=== PATIENT | male | born 1970 | race Caucasian/White ===

== ENCOUNTER 2020-04-09 15:38 | Inpatient (IN) | payer BC, SELFPAY ==
[2020-04-09] VITALS (14 sets, daily range): BP systolic 87–170; BP diastolic 43–110; PULSE 118–133; RESP 14–25; TEMP 36.9–38.6; O2SAT 94–99; BMI 30.6; BMI 30.4; BMI 30.5
--- NOTE | 2020-04-09 16:22 | EKG12_ITS ---
Test Reason : Blood Pressure : / mmHG Vent. Rate : 135 BPM Atrial Rate : 270 BPM P-R Int : 000 ms QRS Dur : 090 ms QT Int : 370 ms P-R-T Axes : 000 049 022 degrees QTc Int : 555 ms Atrial flutter with 2:1 A-V conduction Nonspecific T wave abnormality Abnormal ECG Confirmed by NIMA EUGENE, FRIDA ([id number]), legal editor SHILA EDWARD ([id number]) on 04/12/2020 10:43:42 AM Referred By: TISH Confirmed By:FRIDA HERRING MD
--- NOTE | 2020-04-09 16:22 | RAD_ITS ---
STUDY: X-RAY CHEST REASON FOR EXAM: Male, 49 years old. Fever, nausea. TECHNIQUE: Single AP portable view of the chest. COMPARISON: None. FINDINGS: The lungs are clear and expanded. There is no demonstrated pleural abnormality. Normal size heart. Normal mediastinum and frances. Normal visualized pulmonary arteries. Normal visualized aortic arch and descending thoracic aorta. Normal visualized thoracic spine. Normal visualized ribs, clavicles, and shoulders. There is no demonstrated abnormality of the visualized soft tissue structures of the upper abdomen. RAD/Chest 1 View (Portable) IMPRESSION: Normal x-ray examination of the chest. Electronically Signed: Carroll Echeverria MD at 17:34 EDT Tel , Service support ,
--- NOTE | 2020-04-09 16:23 | RAD_ITS ---
STUDY: X-RAY - RIGHT TIBIA AND FIBULA REASON FOR EXAM: Male, 49 years old. Infection. TECHNIQUE: 2 view(s) of the tibia and fibula were obtained. COMPARISON: None. FINDINGS: Normal visualized tibia. Normal visualized fibula. The soft tissue structures are unremarkable. RAD/Tibia & Fibula 2 Views IMPRESSION: Normal x-ray examination of the tibia and fibula. Electronically Signed: Carroll Echeverria MD at 17:34 EDT Tel , Service support ,
[2020-04-09] MEDS: Morphine 4 MG/ML Syringe IV (16:54)
[2020-04-09] MEDS: Acetaminophen 500 MG Tablet 1000 MG PO (16:54)
[2020-04-09] MEDS: 0.9% Normal Saline 1,000 ML 999 ML IV ×3 (16:54→21:30)
[2020-04-09] MEDS: Ondansetron 4 MG/2 ML Vial IV (16:55)
--- NOTE | 2020-04-09 17:12 | ED.VIS.GEN ---
History of Present Illness Chief Complaint: Fever Informant: Patient Onset: Today Context: Sudden Onset Timing: Continuous Narrative: Patient is a 49-year-old male with history of insulin-dependent diabetes mellitus as well as history of streptococcal left hip infection requiring 2 surgeries for cleanout presenting with sudden onset of pain in his right leg. Patient states this afternoon he suddenly developed a fever of up to 102 and severe pain in his right leg. He notes he had redness and warmth of his right leg. He has associated nausea. But no vomiting and has had normal bowel movements. Patient states that he is not been very compliant with his insulin or checking his blood sugar recently. He denies any upper respiratory symptoms or cough. He denies any sick contacts. Denies any other complaints at this time. Did not take any medications prior to arrival. Past Medical History - Allergies and Home Meds Allergies/Adverse Reactions: Allergies metformin Allergy (Verified 04/09/20 15:40) PT UNSURE OF REACTION Past Medical History: - - Hypertension, diabetes mellitus Surgical History: - - left hip sx x 2- wash out Lives: With Family - Family History Maternal Family History: Reports: Diabetes, Hypertension, - - His mother had Parkinson's disease and hemophilia. Paternal Family History: Reports: Cancer - Skein, Hypertension, Pulmonary Disease, - - His father from myasthenia gravis. Review of Systems General: Reports: Chills, Fever, Malaise. Denies: Sweats Eyes: Denies: Visual changes - bilaterally, Diplopia ENT: Denies: Rhinorrhea, Sore throat Cardiovascular: Denies: Chest pain, Palpitations Respiratory: Denies: Dyspnea, Cough, Dyspnea on exertion Gastrointestinal: Reports: Nausea. Denies: Abdominal pain, Vomiting, Diarrhea, Melena, Hematochezia Genitourinary: Denies: Dysuria, Hematuria, Frequency Musculoskeletal: Reports: Extremity Pain - right. Denies: Back pain Skin: Denies: Rash, Wounds Neurological: Denies: Headache, Weakness, Numbness Physical Exam Vital Signs/Narrative: Vital Signs Temp Pulse Resp BP Pulse Ox 04/09/20 17:05 97 04/09/20 15:41 101.5 F H 132 H 19 H 170/101 H 97 Inital Vital Signs reviewed: Yes General: Well nourished, Well developed, No Acute Distress Head: Normocephalic, Atraumatic Eyes: Perrl, EOMI ENT: Moist mucous membranes, No rhinorrhea Neck: Supple, Nontender Cardiovascular: Regular rhythm, No murmurs, Tachycardia Respiratory: No distress, CTA bilaterally, Chest nontender. Negative for: Wheezing, Diminished Abdomen: Soft, Nontender, Nondistended, Normal bowel sounds. Negative for: Guarding, Rebound tenderness Back: Nontender, Normal Inspection Extremities: Edema - Nonpitting edema of the right lower leg. Negative for: Calf Tenderness Skin: - - Erythema and warmth of the right lower leg. The area of erythema is approximately 6 cm in diameter on the distal lateral aspect of the lower leg. No associated abscess or drainage. No crepitus appreciated. No Lymphangitic streaking noted. Neurological: Alert, Oriented x3, Cranial nerves II-XII grossly intact, Normal Strength, Normal Sensation Psychological: Normal affect, Normal Mood Diagnostic/Tx/Re-eval Chest X-Ray - ED: 1 View, Read by ED Physician, Read by Radiologist, No Acute Disease Clinical Impression(s) from Imaging Studies Chest X-Ray 04/09/20 16:22 IMPRESSION: Normal x-ray examination of the chest. Electronically Signed: Carroll Echeverria MD at 17:34 EDT Tel , Service support , Tibia/Fibula X-Ray 04/09/20 16:23 IMPRESSION: Normal x-ray examination of the tibia and fibula. Electronically Signed: Carroll Echeverria MD at 17:34 EDT Tel , Service support , Laboratory Data 04/09/20 04/09/20 04/09/20 16:40 16:40 16:40 WBC 15.1 H RBC 5.61 Hgb 16.4 Hct 47.2 MCV 84.1 MCH 29.2 MCHC 34.7 RDW Std Deviation 36.8 RDW Coeff of Paul 12.4 Plt Count 214 MPV 11.8 Immature Gran % (Auto) 0.500 Neut % (Auto) 91.3 H Lymph % (Auto) 3.7 L [place] % (Auto) 3.8 Eos % (Auto) 0.5 Baso % (Auto) 0.2 Absolute Neuts (auto) 13.8 H Absolute Lymphs (auto) 0.56 L Nucleated RBC % 0 Differential Comment Platelet Estimate ADEQUATE RBC Morphology NORM C+C PT 12.2 INR 1.0 APTT 21.7 L Sodium 133 L Potassium 4.0 Chloride 97 L Carbon Dioxide 30.0 Anion Gap 6 BUN 8 Creatinine 1.15 Estim Creat Clear Calc 78.47 Est GFR (MDRD) Af Amer 86 Est GFR (MDRD) Non-Af 71 BUN/Creatinine Ratio 7.0 L Glucose 580 H* Lactic Acid Calcium 9.3 Total Bilirubin 2.00 H AST 17 ALT 25 Alkaline Phosphatase 135 H Total Creatine Kinase 83 Total Protein 7.4 Albumin 3.9 Globulin 3.5 Albumin/Globulin Ratio 1.1 Urine Color Urine Clarity Urine pH Ur Specific [place] Urine Protein Urine Glucose (UA) Urine Ketones Urine Occult Blood Urine Nitrite Urine Bilirubin Urine Urobilinogen Ur Leukocyte Esterase Urine RBC Urine WBC Ur Squamous Epith Cells Urine Bacteria Urine Mucus Acetone Level 04/09/20 04/09/20 04/09/20 16:40 16:40 17:25 WBC RBC Hgb Hct MCV MCH MCHC RDW Std Deviation RDW Coeff of Paul Plt Count MPV Immature Gran % (Auto) Neut % (Auto) Lymph % (Auto) [place] % (Auto) Eos % (Auto) Baso % (Auto) Absolute Neuts (auto) Absolute Lymphs (auto) Nucleated RBC % Differential Comment Platelet Estimate RBC Morphology PT INR APTT Sodium Potassium Chloride Carbon Dioxide Anion Gap BUN Creatinine Estim Creat Clear Calc Est GFR (MDRD) Af Amer Est GFR (MDRD) Non-Af BUN/Creatinine Ratio Glucose Lactic Acid 2.2 H* Calcium Total Bilirubin AST ALT Alkaline Phosphatase Total Creatine Kinase Total Protein Albumin Globulin Albumin/Globulin Ratio Urine Color Yellow Urine Clarity Clear Urine pH 6.5 Ur Specific [place] 1.010 Urine Protein Negative Urine Glucose (UA) 1000 H Urine Ketones 15 H Urine Occult Blood Negative Urine Nitrite Negative Urine Bilirubin Negative Urine Urobilinogen Normal Ur Leukocyte Esterase Negative Urine RBC 0 SEEN Urine WBC 0 SEEN Ur Squamous Epith Cells 0 SEEN Urine Bacteria 0 SEEN Urine Mucus 0 SEEN Acetone Level NEGATIVE - Rhythm Strip Rhythm Strip: Sinus Tach Rate: 135 Ectopy: None - EKG Initial EKG Interpretation: Sinus Tachycardia, - - Sinus tachycardia at a rate of 135 Normal axis Normal intervals Nonspecific T wave inversions in the inferior leads with no reciprocal changes - Medical Decision Making Patient is evaluated for sudden onset of fever and pain of his lower right leg. Patient is febrile tachycardic and appears significantly uncomfortable secondary to his symptoms. Septic work-up is initiated I did obtain x-rays for concern of free air. No free air was seen. On repeat evaluation patient does not have any significant progression of the cellulitic changes. Patient is given Zosyn for antibiotic coverage. He does meet criteria for severe sepsis with the source of infection, tachycardia, leukopenia and a lactate of greater than 2. Patient is also found to be significantly hyperglycemic. I did add on an acetone however he has a normal anion gap. Acetone is negative. I do not think patient has DKA or HH NK. Patient is given a total of 3 L of fluid and then sliding-scale insulin which is ordered by the hospitalist. Given that patient be treated for severe sepsis he will be admitted to the ICU. Patient is hemodynamically stable in the emergency room. He is agreeable with this plan of care. He does have improvement of his symptoms with Tylenol and morphine in the ER. - Critical Care Time Critical care time (excluding procedures): 30-74 minutes - 35, Discussing w/Patient &/or Family/Manager Multimedia, Arranging Admission or Transfer, Performing Direct Patient Care at Bedside ED Disposition - Plan for ED Patient: Disposition: Acute Care Hospital [facility] Diagnosis: Cellulitis, Hyperglycemia, Severe sepsis, Diabetes
[2020-04-09 17:25] LABS: Partial Thromboplast Time 21.7 Seconds (24.1-36.2); Prothrombin Time (Protime)PT. 12.2 SECONDS (11.7-14.9)
[2020-04-09 17:26] LABS: Absolute Lymphocyte Count 0.56 X10^3/uL (0.83-4.51); Absolute Neutrophil Count 13.8 X10^3/uL (2.0-7.7); Basophil# 0.03 X10^3/uL; Basophil% 0.2 % (0-1); Eosinophil# 0.08 X10^3/uL; Eosinophils% 0.5 % (0-5); Hematocrit 47.2 % (40-54); Hemoglobin 16.4 g/dL (13.0-16.5); Lymphocyte # 0.56 X10^3/ul (4.0); Lymphocyte % 3.7 % (19-41); Mean Corp Hgb Conc 34.7 g/dL (32-36); Mean Corpuscular Hgb 29.2 pg (27.0-32.0); Mean Corpuscular Volume 84.1 fL (80-94); Mean Platelet Vol. 11.8 fl (6.2-12.0); Monocyte# 0.57 X10^3/uL; Monocyte% 3.8 % (0-10); NRBC Flagged by Analyzer 0 % (0-5); Neutrophil # 13.79 X10^3/uL (2.7-7.7); Neutrophil % 91.3 % (47-70); POSITIVE DIFFERENTIAL YES; Platelet Count 214 K/mm3 (150-450); RBC Distribution Width CV 12.4 % (11.6-14.6); RBC Distribution Width SD 36.8 fl (35.1-43.9); Red Blood Count 5.61 M/mm3 (4.6-6.2); White Blood Count 15.1 K/mm3 (4.4-11.0)
[2020-04-09 17:39] LABS: Bacteria 0 SEEN /hpf (None Seen); Mucous, Urine 0 SEEN /hpf (<or=2+); Red Blood Cells-Urine 0 SEEN /hpf (0-5); Squamous Epithelial Cells - UA 0 SEEN /hpf (0-5); White Blood Cells 0 SEEN /hpf (0-5)
[2020-04-09 18:36] LABS: Lactic Acid 2.2 mmol/L (0.4-1.9)
[2020-04-09 18:40] LABS: Color, Urine Yellow (Yellow); Glucose, Dipstick 1000 mg/dl (Normal); Ketone-Dipstick 15 mg/dl (Negative); Leukocyte Esterase-Dipstick Negative /ul (Negative); Nitrite-Dipstick Negative (Negative); Occult Blood-Urine Negative /ul (Negative); Protein-Dipstick Negative (Negative); Urine Bilirubin Dipstick Negative (Negative); Urine Clarity Clear (Clear); Urine Urobilinogen Normal (Normal); Urine pH 6.5 (5.0 - 8.0)
[2020-04-09 18:44] LABS: Differential Indicated SCAN CRITERIA MET
--- NOTE | 2020-04-09 18:48 | ED.RN ---
LAB WITH CRITICAL OF LACTIC 2.2. DR WINSTON NOTIFIED AT THIS TIME.
[2020-04-09 18:55] LABS: Platelet Estimate ADEQUATE (ADEQ)
[2020-04-09 18:56] LABS: Red Cell Morphology NORM C+C NORMAL (NORM C&C)
[2020-04-09 19:09] LABS: ALB/GLOB Ratio 1.1 RATIO (0.9-2.4); AST(SGOT) 17 U/L (15-37); Alanine Aminotransfer ALT/SGPT 25 U/L (16-61); Albumin, Serum 3.9 g/dL (3.2-5.0); Alkaline Phosphatase 135 U/L (45-117); Anion Gap 6 (5-15); BUN 8 mg/dL (7-18); CPK Total, Creatine Kinase 83 U/L (39-308); Calcium,Total 9.3 mg/dL (8.5-10.1); Chloride 97 mmol/L (98-107); Creatinine, Serum 1.15 mg/dL (0.70-1.30); EST Glomerular Filtration Rate 71 mL/min (>60); Est Glom Filt Rate - Afr Amer 86 mL/min (>60); Estimated Creatinine Clearance 78.47 ml/min; Globulin 3.5 g/dL (2.2-4.2); Glucose 580 mg/dL (74-106); Protein, Total 7.4 g/dL (6.4-8.2); Sodium Level 133 mmol/L (136-145)
--- NOTE | 2020-04-09 19:28 | ED.RN ---
Called lab for urine results. Tech said they were really behind but she will check on the results.
--- NOTE | 2020-04-09 19:37 | HP.PCM_ITS ---
Problem List (1) Severe sepsis Status: Acute (2) Cellulitis Status: Acute (3) Diabetes Status: Chronic (4) Hyperglycemia Status: Acute (5) HTN (hypertension) Status: Chronic History of Present Illness Date of Admission: 04/09/20 Chief Complaint: Right leg pain The patient is a 49 year old M with a significant history of hypertension; diabetes mellitus; and retinopathy who presents to the emergency department with sudden onset excruciating sharp right leg pain that started on the same day of presentation. Also, he noticed redness, swelling and increased warmth on his right leg. The pain radiated to his right inner thigh. Associated with his symptoms is a fever. Reportedly his temperature was at least 101.4 Fahrenheit. With his temperature still rising on the thermometer his stopped the temperature check and brought patient to the hospital. Further, he reports chills; nausea and anorexia. Patient also reports pain in his left inner thigh. Importantly in 2017 he had strep throat infection that caused left leg infection requiring 21 days admission at the hospital and 2 surgeries on his left hip. He called these surgeries on his left hip cleanup surgeries At emergency department his T-max was 100.3 Fahrenheit. His heart rate was in the 130s. His respiratory rate was in the 20s. His white count was 15.1. His sodium was 133. His glucose on BMP was 580. Lactic acid was 2.2. His Accu- Chek after fluid bolus was 483. Tibia/fibula x-ray was unrevealing. Past Medical History Past Medical History (Chronic Problems): Chronic Problems Diabetes (Chronic) HTN (hypertension) (Chronic) Allergies metformin Allergy (Verified 04/09/20 15:40) PT UNSURE OF REACTION Home Medications: Ambulatory Orders Medication Instructions Recorded NK 04/09/20 Surgical History: - - left hip sx x 2- wash out Smoking Status: Never smoker Alcohol: Rare - *Family History Maternal History Items: Diabetes, Hypertension, - - His mother had Parkinson's disease and hemophilia. Paternal History Items: Cancer - Skein, Hypertension, Pulmonary Disease, - - His father from myasthenia gravis. Review of Systems Constitutional: Reports: Anorexia, Chills, Fever. Denies: Weight Change HEENT: Denies: Head Aches, Sinus Congestion, Sinus Drainage Cardiovascular: Denies: Chest Pain, Palpitations Respiratory: Denies: Cough, Shortness of breath at rest, Sputum production Gastrointestinal: Reports: Nausea. Denies: Abdominal Pain, Vomiting Genitourinary: Denies: Dysuria Musculoskeletal: Reports: Leg Pain - Right leg. Denies: Arm Pain, Back Pain Skin: Reports: Skin Changes - Erythema of right leg. Denies: Rash, Wounds Neurological: Denies: Numbness, Tingling, Focal weakness Psychiatric: Denies: Anxiety, Depression, Homicidal Ideations, Suicidal Ideations Hematologic/ Lymphatic: Denies: Easy Bruising, Easy Bleeding VTE Information - Inpt Only VTE Present on Admission: No VTE Mechan Device Prophylaxis: None VTE Pharm Prophylaxis ordered?: Yes Patient Problems: Active and Suspected Problems Severe sepsis (Acute) Cellulitis (Acute) Hyperglycemia (Acute) - Physical Exam Vitals/I&O's: Vital Signs Temp Pulse Resp BP Pulse Ox 98.6 F 132 H 17 123/67 H 94 04/09/20 19:13 04/09/20 19:13 04/09/20 19:13 04/09/20 19:13 04/09/20 19:13 Oxygen Flow Rate (L/min) 2 Oxygen Delivery Method Room Air Weight: 96.7 kg Body Mass Index (BMI) 30.6 Intake and Output for Last 24 Hours 04/07/20 04/08/20 04/09/20 23:59 23:59 23:59 Intake Total 1000 / 1000 Balance 1000 / 1000 General: Alert, Oriented x3, Cooperative HEENT: Atraumatic, PERRLA, EOMI, Normocephalic Neck: Supple, No JVD, Negative Carotid Bruits Lungs: Clear to auscultation, Normal air movement Cardiovascular: Normal S1, Normal S2, No murmurs, Tachycardic Abdomen: Bowel Sounds Present, Soft, Non Tender Extremities: No edema, Capillary Refill Less than 3 Seconds, Tenderness - Right leg Skin: - - Erythema of right leg; mildly increased warmth of right leg. Brownish pigmentation of left leg Musculoskeletal: No Muscle Wasting, Tenderness - Right leg Neurological: Cranial nerves II-XII grossly intact Psych/Mental Status: Normal Affect, Appropriate Laboratory Results 04/09/20 16:40: WBC 15.1 H, RBC 5.61, Hgb 16.4, Hct 47.2, MCV 84.1, MCH 29.2, MCHC 34.7, RDW Std Deviation 36.8, RDW Coeff of Paul 12.4, Plt Count 214, MPV 11.8, Immature Gran % (Auto) 0.500, Neut % (Auto) 91.3 H, Lymph % (Auto) 3.7 L, [place] % (Auto) 3.8, Eos % (Auto) 0.5, Baso % (Auto) 0.2, Absolute Neuts (auto) 13.8 H, Absolute Lymphs (auto) 0.56 L, Nucleated RBC % 0, Differential Comment , Platelet Estimate ADEQUATE, RBC Morphology NORM C+C 04/09/20 16:40: PT 12.2, INR 1.0, APTT 21.7 L 04/09/20 16:40: Sodium 133 L, Potassium 4.0, Chloride 97 L, Carbon Dioxide 30.0, Anion Gap 6, BUN 8, Creatinine 1.15, Estim Creat Clear Calc 78.47, Est GFR (MDRD) Af Amer 86, Est GFR (MDRD) Non-Af 71, BUN/Creatinine Ratio 7.0 L, Glucose 580 H*, Calcium 9.3, Total Bilirubin 2.00 H, AST 17, ALT 25, Alkaline Phosphatase 135 H, Total Creatine Kinase 83, Total Protein 7.4, Albumin 3.9, Globulin 3.5, Albumin/Globulin Ratio 1.1 04/09/20 16:40: Lactic Acid 2.2 H* 04/09/20 17:25: Urine Color Yellow, Urine Clarity Clear, Urine pH 6.5, Ur Specific [place] 1.010, Urine Protein Negative, Urine Glucose (UA) 1000 H, Urine Ketones 15 H, Urine Occult Blood Negative, Urine Nitrite Negative, Urine Bilirubin Negative, Urine Urobilinogen Normal, Ur Leukocyte Esterase Negative, Urine RBC Pending, Urine WBC Pending, Ur Squamous Epith Cells Pending, Urine Bacteria Pending, Urine Mucus Pending Current Medications Sodium Chloride () 1,000 mls @ 999 mls/hr IV .Q1H1M ONE Stop: 04/09/20 20:24 Piperacillin Sod/Tazobactam (Sod 3.375 gm/ Sodium Chloride) 50 mls @ 100 mls/hr IV X1 ONE Stop: 04/09/20 19:53 Sodium Chloride () 1,000 mls @ 999 mls/hr IV .Q1H1M ONE Stop: 04/09/20 20:30 Assessment/Plan All Active Problems Severe sepsis (Acute) Cellulitis (Acute) Hyperglycemia (Acute) The patient is a 49 year old M with a significant history of hypertension; diabetes mellitus; and retinopathy who presents emergency department with excruciating sharp right leg pain; erythema, swelling, and increased warmth of right leg; as well as a fever; chills; tachycardia; tachypnea; leukocytosis; hyperglycemia and lactic acidosis that started on the same day of presentation. Severe sepsis secondary to right leg cellulitis Sirs criteria: Heart rate of more than 97 respiratory rate of more than 20; white count of more than 12,000 Likely source of infection: Right leg cellulitis Lactic acid of 2.2 Trend lactic acid Blood culture x2 was obtained emergency department; follow Urine culture obtained in the emergency department: Follow Because of the sudden onset of symptoms this is likely Streptococcus infection especially as patient has a history of strep throat with hematogenous spread to left leg. Received Zosyn at emergency department We will start patient on vancomycin and cefazolin. Consider de-escalating to only cefazolin as patient improves Patient with tachycardia with rate in the 130s. EKG machine interpreted as atrial flat. Independent interpretation shows sinus tachycardia. Admitted to intensive care unit on telemetry. Received IV fluid bolus at emergency department. Continue maintenance IV hydration. Tylenol for fever. Oxycodone 5 mg for moderate pain; oxycodone 10 mg for severe pain. Bowel protocol in place. Antiemetics PRN. 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 Diabetes mellitus with hyperglycemia Initial glucose on BMP was 580. After IV bolus Accu-Chek showed reading of 483. Patient reports noncompliance with home insulin regimen. He reports a prescription of basal insulin 25 units twice daily. He takes short acting insulin beginning from 12 units with meals and with additional correction scale. Insulin lispro 14 units x 1 ordered. We will put patient on Accu-Chek QA CHS and 2 AM with correction scale insulin. Continue basal insulin 25 units twice daily. Prandial insulin 5 units 3 times daily ordered. Maintenance IV infusion. Diabetic diet ordered. History of hypertension Patient reports that he was on some blood pressure medication. However he reports noncompliance. He thinks he was on amlodipine in the past. His initial blood pressure at emergency department was severely elevated. Follow-up blood pressure is stable. Trend blood pressures. Pseudohyponatremia Sodium of 133 Glucose of 580 Corrected sodium is 141. Treatment of hyperglycemia as above. DVT prophylaxis Subcutaneous Lovenox ordered. Inpatient E&M: 24075 Init Hosp L3
[2020-04-09 20:01] LABS: Bedside Glucose 483 mg/dL (70-110)
[2020-04-09] MEDS: Insulin Lispro 100 UNIT/ML INSULN.PEN 14 UNIT SC (20:03)
[2020-04-09 20:49] LABS: Reflex Lactate? Y
[2020-04-09] MEDS: 0.9% Normal Saline 1,000 ML 100 ML IV (21:05)
[2020-04-09] MEDS: oxyCODONE 5 MG Tablet 10 MG PO (21:38)
[2020-04-09 21:39] LABS: Lactic Acid 1.2 mmol/L (0.4-1.9)
[2020-04-09] MEDS: Insulin Lispro 100 UNIT/ML INSULN.PEN SC (21:42)
[2020-04-09 21:45] LABS: Bedside Glucose 383 mg/dL (70-110)
[2020-04-09] MEDS: 0.9% Saline Lock 10 ML Syringe IV (21:46)
[2020-04-09] MEDS: Cefazolin 2 GM in 0.9% Normal Saline 100 ML IV (22:25)
[2020-04-10] VITALS (23 sets, daily range): BP systolic 104–157; BP diastolic 65–95; PULSE 95–117; RESP 13–25; TEMP 36.7–39; O2SAT 94–98
--- NOTE | 2020-04-10 00:39 | PCM.RX.CS ---
Consult Pharmacy has been consulted to manage selected antiobiotic: Vancomycin Type of Consult: New start Suspected Infection: Sepsis Labs: Sodium 133 mmol/L (136-145) L 04/09/20 16:40 Potassium 4.0 mmol/L (3.5-5.1) 04/09/20 16:40 Chloride 97 mmol/L (98-107) L 04/09/20 16:40 Carbon Dioxide 30.0 mmol/L (21.0-32.0) 04/09/20 16:40 Anion Gap 6 (5-15) 04/09/20 16:40 BUN 8 mg/dL (7-18) 04/09/20 16:40 Creatinine 1.15 mg/dL (0.70-1.30) 04/09/20 16:40 Est GFR (MDRD) Af Amer 86 mL/min (>60) 04/09/20 16:40 Est GFR (MDRD) Non-Af 71 mL/min (>60) 04/09/20 16:40 BUN/Creatinine Ratio 7.0 RATIO (10-20) L 04/09/20 16:40 Glucose 580 mg/dL (74-106) H* 04/09/20 16:40 Weight used for dosin.4 kg Estimated Creatinine Clearance: 88.5 Goal Trough: 15-20 mcg/mL Pharmacy Plan for Drug Dosing: Pharmacy Service will continue to monitor and adjust dosing as required. Medications Vancomycin HCl 1,750 mg/ (Sodium Chloride) 535 mls @ 250 mls/hr IV Q12H DELMA Discontinued Medications Vancomycin HCl 2,000 mg/ (Sodium Chloride) 540 mls @ 250 mls/hr IV X1 ONE Stop: 04/09/20 23:09 Last Admin: 04/09/20 23:40 Dose: Infused Documented by: Follow-Up Labs: Trough Vancomycin Labs to be done on [date and time ordered]: 04/10 @ 2100
[2020-04-10] MEDS: Insulin Lispro 100 UNIT/ML INSULN.PEN SC ×8 (02:21→21:30)
[2020-04-10 02:25] LABS: Bedside Glucose 273 mg/dL (70-110)
[2020-04-10] MEDS: 0.9% Normal Saline 1,000 ML 100 ML IV (04:22)
[2020-04-10] MEDS: 0.9% Saline Lock 10 ML Syringe IV ×2 (04:59→21:27)
[2020-04-10] MEDS: Cefazolin 2 GM in 0.9% Normal Saline 100 ML IV ×3 (05:00→21:24)
[2020-04-10 05:12] LABS: Absolute Lymphocyte Count 0.81 X10^3/uL (0.83-4.51); Basophil# 0.04 X10^3/uL; Basophil% 0.3 % (0-1); Eosinophil# 0.01 X10^3/uL; Eosinophils% 0.1 % (0-5); Hematocrit 38.3 % (40-54); Hemoglobin 13.6 g/dL (13.0-16.5); Lymphocyte # 0.81 X10^3/ul (4.0); Lymphocyte % 5.2 % (19-41); Mean Corp Hgb Conc 35.5 g/dL (32-36); Mean Corpuscular Hgb 30.2 pg (27.0-32.0); Mean Corpuscular Volume 84.9 fL (80-94); Mean Platelet Vol. 11.4 fl (6.2-12.0); Monocyte% 3.9 % (0-10); NRBC Flagged by Analyzer 0 % (0-5); Neutrophil # 13.95 X10^3/uL (2.7-7.7); Neutrophil % 89.9 % (47-70); Platelet Count 165 K/mm3 (150-450); RBC Distribution Width CV 12.4 % (11.6-14.6); RBC Distribution Width SD 37.2 fl (35.1-43.9); Red Blood Count 4.51 M/mm3 (4.6-6.2); White Blood Count 15.5 K/mm3 (4.4-11.0)
[2020-04-10 05:23] LABS: Anion Gap 5 (5-15); BUN 10 mg/dL (7-18); BUN/Creat Ratio 13.4 RATIO (10-20); Chloride 108 mmol/L (98-107); Creatinine, Serum 0.75 mg/dL (0.70-1.30); EST Glomerular Filtration Rate 117 mL/min (>60); Est Glom Filt Rate - Afr Amer 141 mL/min (>60); Estimated Creatinine Clearance 120.31 ml/min; Glucose 202 mg/dL (74-106); Potassium 3.2 mmol/L (3.5-5.1); Sodium Level 141 mmol/L (136-145)
[2020-04-10] MEDS: oxyCODONE 5 MG Tablet PO (06:27)
--- NOTE | 2020-04-10 07:30 | PN_ITS ---
Patient Problems: Active and Suspected Problems Severe sepsis (Acute) Cellulitis (Acute) Hyperglycemia (Acute) Reason for Visit: Follow-up on severe sepsis secondary to right lower extremity cellulitis/uncontrolled type II DM Subjective: Patient was seen and examined. He feels much improved. He denied any fever or chills. He complains of pain in the distal right thigh. There is some faint red streaking in the medial aspect of the thigh. He denied any diarrhea or nausea or vomiting. Objective: Physical exam: General: Alert, Oriented x3, Cooperative HEENT: Atraumatic, PERRLA, EOMI, Normocephalic Neck: Supple, No JVD, Negative Carotid Bruits Lungs: Clear to auscultation, Normal air movement Cardiovascular: Normal S1, Normal S2, No murmurs, Tachycardic Abdomen: Bowel Sounds Present, Soft, Non Tender Extremities: No edema, Capillary Refill Less than 3 Seconds, Tenderness - Right leg Skin: - - Improved erythema of right leg; mildly increased warmth of right leg. Brownish pigmentation of both lower legs. Musculoskeletal: No Muscle Wasting, Tenderness - Right leg Neurological: Cranial nerves II-XII grossly intact Psych/Mental Status: Normal Affect, Appropriate Vitals/I&O's: Vital Signs Temp Pulse Resp BP Pulse Ox 98.3 F 115 H 25 H 148/95 H 96 04/10/20 04:00 04/10/20 06:00 04/10/20 06:00 04/10/20 06:00 04/10/20 06:40 Oxygen Flow Rate (L/min) 2 Oxygen Delivery Method Nasal Cannula Weight: 96.4 kg Body Mass Index (BMI) 30.4 Finger Stick Blood Glucose 483 Intake and Output for Last 24 Hours 04/08/20 04/09/20 04/10/20 23:59 23:59 23:59 Intake Total 4163.58 / 4363.58 867.5 / 867.5 Output Total 550 / 1000 1050 / 1050 Balance 3613.58 / 3363.58 -182.5 / -182.5 Laboratory Results 04/09/20 16:40: WBC 15.1 H, RBC 5.61, Hgb 16.4, Hct 47.2, MCV 84.1, MCH 29.2, MCHC 34.7, RDW Std Deviation 36.8, RDW Coeff of Paul 12.4, Plt Count 214, MPV 11.8, Immature Gran % (Auto) 0.500, Neut % (Auto) 91.3 H, Lymph % (Auto) 3.7 L, [place] % (Auto) 3.8, Eos % (Auto) 0.5, Baso % (Auto) 0.2, Absolute Neuts (auto) 13.8 H, Absolute Lymphs (auto) 0.56 L, Nucleated RBC % 0, Differential Comment , Platelet Estimate ADEQUATE, RBC Morphology NORM C+C 04/09/20 16:40: PT 12.2, INR 1.0, APTT 21.7 L 04/09/20 16:40: Sodium 133 L, Potassium 4.0, Chloride 97 L, Carbon Dioxide 30.0, Anion Gap 6, BUN 8, Creatinine 1.15, Estim Creat Clear Calc 78.47, Est GFR (MDRD) Af Amer 86, Est GFR (MDRD) Non-Af 71, BUN/Creatinine Ratio 7.0 L, Glucose 580 H*, Calcium 9.3, Total Bilirubin 2.00 H, AST 17, ALT 25, Alkaline Phosphatase 135 H, Total Creatine Kinase 83, Total Protein 7.4, Albumin 3.9, Globulin 3.5, Albumin/Globulin Ratio 1.1 04/09/20 16:40: Lactic Acid 2.2 H* 04/09/20 16:40: Acetone Level NEGATIVE 04/09/20 17:25: Urine Color Yellow, Urine Clarity Clear, Urine pH 6.5, Ur Specific [place] 1.010, Urine Protein Negative, Urine Glucose (UA) 1000 H, Urine Ketones 15 H, Urine Occult Blood Negative, Urine Nitrite Negative, Urine Bilirubin Negative, Urine Urobilinogen Normal, Ur Leukocyte Esterase Negative, Urine RBC 0 SEEN, Urine WBC 0 SEEN, Ur Squamous Epith Cells 0 SEEN, Urine Bacteria 0 SEEN, Urine Mucus 0 SEEN 04/09/20 19:55: POC Glucose 483 H* 04/09/20 21:00: Lactic Acid 1.2 04/09/20 21:41: POC Glucose 383 H 04/10/20 02:20: POC Glucose 273 H 04/10/20 04:55: WBC 15.5 H, RBC 4.51 L, Hgb 13.6, Hct 38.3 L, MCV 84.9, MCH 30.2, MCHC 35.5, RDW Std Deviation 37.2, RDW Coeff of Paul 12.4, Plt Count 165, MPV 11.4, Immature Gran % (Auto) 0.600, Neut % (Auto) 89.9 H, Lymph % (Auto) 5.2 L, [place] % (Auto) 3.9, Eos % (Auto) 0.1, Baso % (Auto) 0.3, Absolute Neuts (auto) 14.0 H, Absolute Lymphs (auto) 0.81 L, Nucleated RBC % 0 04/10/20 04:55: Sodium 141, Potassium 3.2 L, Chloride 108 H, Carbon Dioxide 28.0, Anion Gap 5, BUN 10, Creatinine 0.75, Estim Creat Clear Calc 120.31, Est GFR (MDRD) Af Amer 141, Est GFR (MDRD) Non-Af 117, BUN/Creatinine Ratio 13.4, Glucose 202 H, Calcium 8.0 L Current Medications Acetaminophen (Tylenol) 650 mg PO Q6H PRN PRN PRN Reason: Pain Score 1-10/Temp > 100.7 F Dextrose (D50w Syringe) 0 gm IV X1 PRN; Protocol PRN Reason: Hypoglycemia Enoxaparin Sodium (Lovenox) 40 mg SC DAILY [facility] Glucagon () 1 mg IM .X1 PRN PRN Reason: Hypoglycemia Sodium Chloride () 1,000 mls @ 100 mls/hr IV .Q10H [facility] Stop: 04/10/20 16:40 Last Admin: 04/10/20 04:22 Dose: 100 mls/hr Documented by: Vancomycin IV Pharmacy to Dose (1 ea/ Sodium Chloride) 500 mls @ 250 mls/hr IV X1 PRN; Protocol PRN Reason: Rx to Dose Cefazolin Sodium 2 gm/ Sodium (Chloride) 110 mls @ 150 mls/hr IV Q8 DELMA Last Infusion: 04/10/20 05:50 Dose: Infused Documented by: Sodium Chloride () 250 mls @ 15 mls/hr IV .[id number] PRN PRN Reason: Saline Flush Last Infusion: 04/10/20 05:50 Dose: 15 mls/hr Documented by: Sodium Chloride () 250 mls @ 15 mls/hr IV .[id number] PRN PRN Reason: Additional IVPB Infusion Vancomycin HCl 1,750 mg/ (Sodium Chloride) 535 mls @ 250 mls/hr IV Q12H [facility] Insulin Glargine (Lantus (Bkc)) 25 units SC BID [facility] Last Admin: 04/09/20 21:42 Dose: 25 u Documented by: Insulin Human Lispro (Humalog Kwikpen (Bkc)) 0 unit SC ACHS & 3AM DELMA; Protocol Last Admin: 04/10/20 02:21 Dose: 9 u Documented by: Insulin Human Lispro (Humalog Kwikpen (Bkc)) 5 unit SC TIDAC [facility] Melatonin (Melatonin) 3 mg PO QHS PRN PRN PRN Reason: INSOMNIA Ondansetron HCl (Zofran) 4 mg IV Q8H PRN PRN PRN Reason: NAUSEA/VOMITING Oxycodone HCl (Oxyir) 5 mg PO Q4H PRN PRN PRN Reason: Pain Score 4-5/10 Last Admin: 04/10/20 06:27 Dose: 5 mg Documented by: Oxycodone HCl (Oxyir) 10 mg PO Q4H PRN PRN PRN Reason: Pain Score 6-10/10 Last Admin: 04/09/20 21:38 Dose: 10 mg Documented by: Sodium Chloride () 10 - 40 ml IV UD PRN PRN Reason: SALINE FLUSH Last Admin: 04/10/20 04:59 Dose: 10 ml Documented by: STROKE Vital Signs/Narrative: Vital Signs Temp Pulse Resp BP Pulse Ox 04/10/20 06:40 96 04/10/20 06:00 115 H 25 H 148/95 H 97 04/10/20 05:00 117 H 18 126/83 H 96 04/10/20 04:00 98.3 F 115 H 20 H 117/76 97 Medical Necessity - Tobacco Use Smoking Status: Never smoker Assessment/Plan All Active Problems Severe sepsis (Acute) Cellulitis (Acute) Hyperglycemia (Acute) 1. Severe sepsis secondary to right leg cellulitis, slightly improved Patient remains tachycardic, likely related to pain WBC count is 15.5, lactic acid is 1.2 We will continue on IV cefazolin and vancomycin 2. Hypokalemia, K is 3.2, replaced, recheck in a.m. 3. Magnesium Essence, magnesium is 1.9, replaced, recheck in a.m. 4. Type II DM, uncontrolled with hyperglycemia HgbA1c is pending, blood sugars remain uncontrolled Continue on Lantus 25 twice daily, Humalog 5 units 3 times daily as well as insulin sliding scale with blood glucose checks 3. Hypertension, fairly controlled Continue to monitor. If remains uncontrolled, will consider start of lisinopril 4. Pseudohyponatremia secondary to uncontrolled diabetes We will continue to monitor 5. DVT prophylaxis with Lovenox subcu Inpatient E&M: [id number] Subs Hosp L2
--- NOTE | 2020-04-10 07:36 | CON.PCM_ITS ---
Problem List (1) Severe sepsis Status: Acute (2) Cellulitis Status: Acute Qualifiers: Site of cellulitis: extremity Site of cellulitis of extremity: lower extremity Laterality: right Qualified Code(s): L03.115 - Cellulitis of right lower limb (3) Diabetes Status: Chronic Qualifiers: Diabetes mellitus type: type 2 Diabetes mellitus care home insulin use: without ocean transportation intermediary use Diabetes mellitus complication status: with circulatory complication Diabetes mellitus complication detail: with peripheral angiopathy without gangrene Qualified Code(s): E11.51 - Type 2 diabetes mellitus with diabetic peripheral angiopathy without gangrene (4) Hyperglycemia Status: Acute (5) HTN (hypertension) Status: Chronic Qualifiers: Hypertension type: essential hypertension Qualified Code(s): I10 - Essential (primary) hypertension Reason for Consult Date of Consultation: 04/10/20 Reason for Consultation: Severe sepsis History of Present Illness: The patient is a 49 year old M, with past medical history listed below, who presented [facility] on 04/09/2020 secondary to a relatively acute onset of fever up to 102 and severe pain of his right lower extremity. Patient had noted some redness and warmth of his right leg over the previous day. This was associated with nausea, but no vomiting or diarrhea. Patient reports that he is not very good about checking his blood sugars at baseline and estimates that he checks them 1 to 2 days/week. Patient did not had any upper respiratory type symptoms such as nasal congestion, cough or chest pain. Patient had not taken any medications prior to his arrival. In the ER, patient was noted to be febrile at 101.5 ?F, tachycardic at 132 bpm and hypertensive at 170/101. Patient was saturating well on room air. Work-up was significant for a leukocytosis of 15.1 with a hemoglobin of 16.4. Creatinine was slightly elevated at 1.15, glucose at 580 and total bilirubin at 2. Lactate was elevated at 2.2 and urinalysis was unremarkable except for glucosuria. Patient was placed on Zosyn, given 3 L of IV fluids and sliding scale insulin. Patient was admitted to the intensive care unit for further evaluation. Since being in the intensive care unit, patient is reporting significant improvement in his overall condition. Patient still has significant pain of the right lower extremity. Patient reports that he has had issues with infection in his left hip previously. Patient does not report a history of a hip replacement. Patient states that he does not follow his diabetic protocol very well. Patient reports the oxycodone addresses his leg pain. Patient was on 2 L nasal cannula overnight for comfort. Review of systems otherwise negative from a constitutional, HEENT, respiratory, cardiovascular, GI, genitourinary, musculoskeletal, skin, neurologic, psychiatric and hematologic system unless stated above. Past Medical History Past Medical History (Chronic Problems): Chronic Problems Diabetes (Chronic) HTN (hypertension) (Chronic) Allergies metformin Allergy (Verified 04/09/20 15:40) PT UNSURE OF REACTION Home Medications: Ambulatory Orders Medication Instructions Recorded NK 04/09/20 Surgical History: - - left hip sx x 2- wash out Lives: With Family Smoking Status: Never smoker Alcohol: Rare - *Family History Maternal History Items: Diabetes, Hypertension, - - His mother had Parkinson's disease and hemophilia. Paternal History Items: Cancer - Skein, Hypertension, Pulmonary Disease, - - His father from myasthenia gravis. Review of Systems Comment: See HPI Patient Problems: Active and Suspected Problems Severe sepsis (Acute) Cellulitis (Acute) Hyperglycemia (Acute) Objective: Chest x-ray and leg x-ray were personally reviewed. These appear to be normal on my review. Patient has never had an echocardiogram or pulmonary function test [facility]. - Physical Exam Vitals/I&O's: Vital Signs Temp Pulse Resp BP Pulse Ox 36.8 C 114 H 25 H 148/95 H 96 04/10/20 04:00 04/10/20 07:34 04/10/20 06:00 04/10/20 06:00 04/10/20 06:40 Oxygen Flow Rate (L/min) 2 Oxygen Delivery Method Nasal Cannula Weight: 96.4 kg Body Mass Index (BMI) 30.4 Finger Stick Blood Glucose 483 Intake and Output for Last 24 Hours 04/08/20 04/09/20 04/10/20 23:59 23:59 23:59 Intake Total 4163.58 / 4363.58 867.5 / 867.5 Output Total 550 / 1000 1050 / 1050 Balance 3613.58 / 3363.58 -182.5 / -182.5 General: Alert, Oriented x3, Cooperative, No apparent distress, Well developed, Well nourished, - - Appears stated age. Speaking in full sentences. HEENT: Atraumatic, PERRLA, EOMI, Normocephalic, - - No scleral icterus or injection noted Oral: Moist Mucosa, No Gingival or Mucosal Lesions/ Ulcerations Neck: Supple, No JVD, No Nodes, Trachea Midline Lungs: Clear to auscultation, Normal air movement, No rhonchi, No wheeze, No rales, - - Symmetric expansion. Cardiovascular: Normal S1, Normal S2, No murmurs, No rub noted, No Gallop, Tachycardic Abdomen: Bowel Sounds Present, Soft, Non Tender, Non-Distended Extremities: No clubbing, No cyanosis, Edema - Right lower extremity Skin: - - Tenderness and warmth noted of the right lower extremity. Vascular insufficiency changes noted bilaterally. Possible cord sign noted on right thigh Musculoskeletal: Tenderness Lymphatic: No Cervical, Supraclavicular, or Inguinal Adenopathy Neurological: Cranial nerves II-XII grossly intact, Neuro grossly intact, Motor Exam 5/5 strength throughout Psych/Mental Status: Alert and oriented to time, place, person, mood and affect Laboratory Results 04/09/20 16:40: WBC 15.1 H, RBC 5.61, Hgb 16.4, Hct 47.2, MCV 84.1, MCH 29.2, MCHC 34.7, RDW Std Deviation 36.8, RDW Coeff of Paul 12.4, Plt Count 214, MPV 11.8, Immature Gran % (Auto) 0.500, Neut % (Auto) 91.3 H, Lymph % (Auto) 3.7 L, [place] % (Auto) 3.8, Eos % (Auto) 0.5, Baso % (Auto) 0.2, Absolute Neuts (auto) 13.8 H, Absolute Lymphs (auto) 0.56 L, Nucleated RBC % 0, Differential Comment , Platelet Estimate ADEQUATE, RBC Morphology NORM C+C 04/09/20 16:40: PT 12.2, INR 1.0, APTT 21.7 L 04/09/20 16:40: Sodium 133 L, Potassium 4.0, Chloride 97 L, Carbon Dioxide 30.0, Anion Gap 6, BUN 8, Creatinine 1.15, Estim Creat Clear Calc 78.47, Est GFR (MDRD) Af Amer 86, Est GFR (MDRD) Non-Af 71, BUN/Creatinine Ratio 7.0 L, Glucose 580 H*, Calcium 9.3, Total Bilirubin 2.00 H, AST 17, ALT 25, Alkaline Phosphatase 135 H, Total Creatine Kinase 83, Total Protein 7.4, Albumin 3.9, Globulin 3.5, Albumin/Globulin Ratio 1.1 04/09/20 16:40: Lactic Acid 2.2 H* 04/09/20 16:40: Acetone Level NEGATIVE 04/09/20 17:25: Urine Color Yellow, Urine Clarity Clear, Urine pH 6.5, Ur Specific [place] 1.010, Urine Protein Negative, Urine Glucose (UA) 1000 H, Urine Ketones 15 H, Urine Occult Blood Negative, Urine Nitrite Negative, Urine Bilirubin Negative, Urine Urobilinogen Normal, Ur Leukocyte Esterase Negative, Urine RBC 0 SEEN, Urine WBC 0 SEEN, Ur Squamous Epith Cells 0 SEEN, Urine Bacteria 0 SEEN, Urine Mucus 0 SEEN 04/09/20 19:55: POC Glucose 483 H* 04/09/20 21:00: Lactic Acid 1.2 04/09/20 21:41: POC Glucose 383 H 04/10/20 02:20: POC Glucose 273 H 04/10/20 04:55: WBC 15.5 H, RBC 4.51 L, Hgb 13.6, Hct 38.3 L, MCV 84.9, MCH 30.2, MCHC 35.5, RDW Std Deviation 37.2, RDW Coeff of Paul 12.4, Plt Count 165, MPV 11.4, Immature Gran % (Auto) 0.600, Neut % (Auto) 89.9 H, Lymph % (Auto) 5.2 L, [place] % (Auto) 3.9, Eos % (Auto) 0.1, Baso % (Auto) 0.3, Absolute Neuts (auto) 14.0 H, Absolute Lymphs (auto) 0.81 L, Nucleated RBC % 0 04/10/20 04:55: Sodium 141, Potassium 3.2 L, Chloride 108 H, Carbon Dioxide 28.0, Anion Gap 5, BUN 10, Creatinine 0.75, Estim Creat Clear Calc 120.31, Est GFR (MDRD) Af Amer 141, Est GFR (MDRD) Non-Af 117, BUN/Creatinine Ratio 13.4, Glucose 202 H, Calcium 8.0 L Current Medications Acetaminophen (Tylenol) 650 mg PO Q6H PRN PRN PRN Reason: Pain Score 1-10/Temp > 100.7 F Dextrose (D50w Syringe) 0 gm IV X1 PRN; Protocol PRN Reason: Hypoglycemia Enoxaparin Sodium (Lovenox) 40 mg SC DAILY [facility] Glucagon () 1 mg IM .X1 PRN PRN Reason: Hypoglycemia Sodium Chloride () 1,000 mls @ 100 mls/hr IV .Q10H [facility] Stop: 04/10/20 16:40 Last Admin: 04/10/20 04:22 Dose: 100 mls/hr Documented by: Vancomycin IV Pharmacy to Dose (1 ea/ Sodium Chloride) 500 mls @ 250 mls/hr IV X1 PRN; Protocol PRN Reason: Rx to Dose Cefazolin Sodium 2 gm/ Sodium (Chloride) 110 mls @ 150 mls/hr IV Q8 DELMA Last Infusion: 04/10/20 05:50 Dose: Infused Documented by: Sodium Chloride () 250 mls @ 15 mls/hr IV .[id number] PRN PRN Reason: Saline Flush Last Infusion: 04/10/20 05:50 Dose: 15 mls/hr Documented by: Sodium Chloride () 250 mls @ 15 mls/hr IV .[id number] PRN PRN Reason: Additional IVPB Infusion Vancomycin HCl 1,750 mg/ (Sodium Chloride) 535 mls @ 250 mls/hr IV Q12H [facility] Insulin Glargine (Lantus (Bkc)) 25 units SC BID [facility] Last Admin: 04/09/20 21:42 Dose: 25 u Documented by: Insulin Human Lispro (Humalog Kwikpen (Bkc)) 0 unit SC ACHS & 3AM DELMA; Protocol Last Admin: 04/10/20 02:21 Dose: 9 u Documented by: Insulin Human Lispro (Humalog Kwikpen (Bkc)) 5 unit SC TIDAC [facility] Melatonin (Melatonin) 3 mg PO QHS PRN PRN PRN Reason: INSOMNIA Ondansetron HCl (Zofran) 4 mg IV Q8H PRN PRN PRN Reason: NAUSEA/VOMITING Oxycodone HCl (Oxyir) 5 mg PO Q4H PRN PRN PRN Reason: Pain Score 4-5/10 Last Admin: 04/10/20 06:27 Dose: 5 mg Documented by: Oxycodone HCl (Oxyir) 10 mg PO Q4H PRN PRN PRN Reason: Pain Score 6-10/10 Last Admin: 04/09/20 21:38 Dose: 10 mg Documented by: Sodium Chloride () 10 - 40 ml IV UD PRN PRN Reason: SALINE FLUSH Last Admin: 04/10/20 04:59 Dose: 10 ml Documented by: Clinical Impression(s) from Imaging Studies Chest X-Ray 04/09/20 16:22 IMPRESSION: Normal x-ray examination of the chest. Electronically Signed: Carroll Echeverria MD at 17:34 EDT Tel , Service support , Tibia/Fibula X-Ray 04/09/20 16:23 IMPRESSION: Normal x-ray examination of the tibia and fibula. Electronically Signed: Carroll Echeverria MD at 17:34 EDT Tel , Service support , Assessment/Plan Active and Suspected Problems Severe sepsis (Acute) Cellulitis (Acute) Hyperglycemia (Acute) RECOMMENDATIONS: 1. Aggressive blood sugar control 2. Continue empiric antibiotics 3. Consider echocardiogram for possible embolic source 4. Obtain lower extremity Dopplers for possible DVT 5. Consider outpatient evaluation by endocrine IMPRESSIONS: 1. Severe sepsis secondary to right lower extremity cellulitis Patient with warmth, erythema and tenderness of the right lower extremity. Patient does not have any visible wounds noted at this time. Patient likely has circulatory complications from poor diabetic control leading to current condition. Patient is on appropriate antibiotics at this time. Patient has responded to fluid bolus, but remains tachycardic. This may be secondary to continued volume depletion. We will continue to bolus fluids as necessary. Continue oxycodone for pain. May consider echocardiogram as patient has had multiple reported infections with no clear etiology. 2. Hyperglycemia secondary to poorly controlled insulin-dependent diabetes mellitus Patient reports that he checks his glucose about twice per week. Hemoglobin A1c can be checked as an outpatient. We will continue aggressive management at this time. Patient is aware of the possible complications of continued noncompliance with insulin therapy. However, outpatient follow-up with endocrine would be appropriate. Patient may have an element of volume depletion secondary to uncontrolled glucose in addition to increased vascular leakage associated with severe sepsis. 3. Sinus tachycardia/hypertension/pseudohyponatremia/poor compliance Complicates care, management, recovery and prognosis. Patient did require 2 L nasal cannula overnight to maintain saturations in the setting of tachycardia. Patient has a possible palpable cord of the right lower extremity. Will check Doppler studies for evaluation. We will need to watch sodium levels closely as patient has received significant amounts of normal saline. May need to switch to lactated Ringer's for volume resuscitation to avoid hyperchloremic metabolic acidosis. Inpatient E&M: 45156 Init Hosp L3
[2020-04-10 08:07] LABS: Magnesium 1.9 mg/dL (1.6-2.6)
[2020-04-10] MEDS: Enoxaparin 40 MG/0.4 ML Syringe SC (08:10)
--- NOTE | 2020-04-10 09:59 | EKG12_ITS ---
Test Reason : RYTHM CHANGE Blood Pressure : / mmHG Vent. Rate : 110 BPM Atrial Rate : 110 BPM P-R Int : 202 ms QRS Dur : 090 ms QT Int : 302 ms P-R-T Axes : 038 023 -21 degrees QTc Int : 408 ms Sinus tachycardia Nonspecific T wave abnormality Abnormal ECG When compared with ECG of 09-APR-2020 16:49, MANUAL COMPARISON REQUIRED, DATA IS UNCONFIRMED Confirmed by SUSAN EUGENE, LUCRECIA ([id number]), photograph editor SHILA EDWARD ([id number]) on 04/20/2020 1:38:25 PM Referred By: DUKE Confirmed By:MARCK DAVIS MD
--- NOTE | 2020-04-10 10:32 | CASEMGMT ---
RN CM Assessment Note Intro role of CM to patient in room. Patient is awake, alert and able to participate in assessment. Patient is working, states he checks his blood sugar only 2 times a week but understands he will have updated guidelines on this on dc. Patient also said he is independent at home, no DME use. Has working blood glucose monitor and supplies, but will need updated scripts for his insulins on dc including Lantus. Patient and moved to area last year and he has not seen his PCP yet. -Discussed establishing with Conveyor System Dispatcher on discharge. Patient is willing to do this. Name/Number for Dr. Valdo Mitchell given to patient. He would like to make own appoints as he works and needs to work with his schedule. Presentation: Fever of 102 and severe pain in right leg due to cellulitis, BS >500 on admission. Diagnosis: Sepsis, RLE cellulitis, hyperglycemia PMH: Diabetes, HTN, in 2017 patient had leg infection and strep throat, had 2 surgeries and was hospitalized for 21 days. PCP: Dr. Tovar. Patient was to have first visit with Dr. Tovar in October, but this was cancelled due to covid-19 restrictions. Patient plans to call and make first appointment on dc Specialists: none. Patient states he will f/u with Dr. Valdo Mitchell on dc. Insurance: [place] Preferred Pharmacy: [facility] Pres[facility] Benefit: yes LNOK: , Brandi Khalil Living Arrangements: Lives with . First floor set up for master bath and bedroom, 2 steps into home. Patient denies any concerns re: ADL's or IADL's. Tranportation: drives DME: none used currently. Has cane/walker HHC: in past when they lived near [place], unsure of name SNF: none Patient DC Goals: Home DC Plan: anticipate home on discharge. CM available for discharge planning coordination. Raven AVITIA RN ACM
[2020-04-10] MEDS: Morphine 2 MG/ML Syringe 1 MG IV (10:59)
[2020-04-10 11:10] LABS: Bedside Glucose 407 mg/dL (70-110)
[2020-04-10 11:19] LABS: Hemoglobin A1c 12.6 % (3.8-5.6)
--- NOTE | 2020-04-10 15:23 | VDLE_ITS ---
Reason For Study: Swelling RIGHT LEFT CFV is compressible, spontaneous, phasic, GSV is normal. competent and demonstrates normal CFV is compressible, spontaneous, phasic, augmentation. competent, and demonstrates normal FV is compressible, spontaneous, phasic, augmentation. competent and demonstrates normal FV is compressible, spontaneous, phasic, augmentation. competent and demonstrates normal POP V is compressible, spontaneous, phasic, augmentation. competent and demonstrates normal POP V is compressible, spontaneous, phasic, augmentation. competent and demonstrates normal T/P Trunk is compressible. augmentation. PTV is compressible. T/P Trunk is compressible. RT PerV is compressible. PTV is compressible. Rt SSV and Rt GSV prox thigh are dilated and LT PerV is compressible. non compressible consistent with acute SVT Lt SSV is dilated and non compressible consistent with acute SVT. Rt GSV is compressible at junction. Procedure Venous flow appears somewhat pulsatile. Exam performed portable in patient room. A preliminary report was called and/or faxed to Patients RN. Interpretation Summary Deep veins of the lower extremities are bilaterally patent and compressible segmentally. There is no evidence of deep vein thrombosis on either side. Valvular competence appears intact within the proximal deep venous systems bilaterally. Acute superficial thrombophlebitis is noted in the right great saphenous vein in the proximal thigh, though not extending into the deep venous system. The left great saphenous vein appears patent and compressible segmentally. Acute superficial thrombophlebitis is noted in the small saphenous veins bilaterally. Ordering Physician: Natali Gillette Referring Physician: Higinio Tovar Performed By: Aliyah Parker, NONA, RVT
--- NOTE | 2020-04-10 15:42 | NURSING ---
report called to pcu fro transfer with belongings to room 117
[2020-04-10] MEDS: oxyCODONE 5 MG Tablet 10 MG PO ×2 (16:15→20:27)
[2020-04-10] MEDS: Acetaminophen 325 MG Tablet 650 MG PO (17:33)
[2020-04-10 18:46] LABS: Bedside Glucose 162 mg/dL (70-110)
[2020-04-10 21:36] LABS: Bedside Glucose 210 mg/dL (70-110)
[2020-04-10 21:50] LABS: Vancomycin, Trough Level 7.3 ug/mL (5.0-15.0)
[2020-04-11] VITALS (13 sets, daily range): BP systolic 125–155; BP diastolic 66–77; PULSE 98–115; RESP 18; TEMP 37–38.4; O2SAT 92–96
--- NOTE | 2020-04-11 00:41 | PCM.RX.CS ---
Consult Pharmacy has been consulted to manage selected antiobiotic: Vancomycin Type of Consult: Follow-up Suspected Infection: Sepsis Labs: Sodium 141 mmol/L (136-145) 04/10/20 04:55 Potassium 3.2 mmol/L (3.5-5.1) L 04/10/20 04:55 Chloride 108 mmol/L (98-107) H 04/10/20 04:55 Carbon Dioxide 28.0 mmol/L (21.0-32.0) 04/10/20 04:55 Anion Gap 5 (5-15) 04/10/20 04:55 BUN 10 mg/dL (7-18) 04/10/20 04:55 Creatinine 0.75 mg/dL (0.70-1.30) 04/10/20 04:55 Est GFR (MDRD) Af Amer 141 mL/min (>60) 04/10/20 04:55 Est GFR (MDRD) Non-Af 117 mL/min (>60) 04/10/20 04:55 BUN/Creatinine Ratio 13.4 RATIO (10-20) 04/10/20 04:55 Glucose 202 mg/dL (74-106) H 04/10/20 04:55 Vancomycin Trough 7.3 ug/mL (5.0-15.0) 04/10/20 21:08 Goal Trough: 15-20 mcg/mL Pharmacy Plan for Drug Dosing: Pharmacy Service will continue to monitor and adjust dosing as required. TROUGH 7.3 INCREASE TO 1750 Q8H Follow-Up Labs: Trough Vancomycin Labs to be done on [date and time ordered]: 04/11 @ 9039
[2020-04-11] MEDS: Insulin Lispro 100 UNIT/ML INSULN.PEN SC ×6 (02:11→22:05)
[2020-04-11] MEDS: oxyCODONE 5 MG Tablet 10 MG PO ×2 (02:15→08:08)
[2020-04-11 02:16] LABS: Bedside Glucose 161 mg/dL (70-110)
[2020-04-11] MEDS: Calcium Carbonate 500 MG Tablet PO ×2 (02:56→13:18)
[2020-04-11] MEDS: Pantoprazole Sodium 40 MG Tablet PO (02:56)
[2020-04-11] MEDS: Acetaminophen 325 MG Tablet 650 MG PO ×2 (04:04→18:32)
[2020-04-11] MEDS: Cefazolin 2 GM in 0.9% Normal Saline 100 ML IV ×3 (05:09→22:08)
[2020-04-11] MEDS: 0.9% Saline Lock 10 ML Syringe IV ×2 (06:01→08:08)
[2020-04-11 07:25] LABS: Absolute Neutrophil Count 6.7 X10^3/uL (2.0-7.7); Basophil# 0.03 X10^3/uL; Basophil% 0.3 % (0-1); Eosinophil# 0.04 X10^3/uL; Eosinophils% 0.5 % (0-5); Hematocrit 37.6 % (40-54); Hemoglobin 12.9 g/dL (13.0-16.5); Lymphocyte % 13.9 % (19-41); Mean Corp Hgb Conc 34.3 g/dL (32-36); Mean Corpuscular Hgb 29.7 pg (27.0-32.0); Mean Corpuscular Volume 86.4 fL (80-94); Mean Platelet Vol. 11.1 fl (6.2-12.0); Monocyte# 0.63 X10^3/uL; Monocyte% 7.3 % (0-10); NRBC Flagged by Analyzer 0 % (0-5); Neutrophil # 6.72 X10^3/uL (2.7-7.7); Neutrophil % 77.5 % (47-70); Platelet Count 155 K/mm3 (150-450); RBC Distribution Width CV 12.6 % (11.6-14.6); RBC Distribution Width SD 39.3 fl (35.1-43.9); Red Blood Count 4.35 M/mm3 (4.6-6.2); White Blood Count 8.7 K/mm3 (4.4-11.0)
[2020-04-11 07:54] LABS: ALB/GLOB Ratio 0.8 RATIO (0.9-2.4); AST(SGOT) 15 U/L (15-37); Alanine Aminotransfer ALT/SGPT 16 U/L (16-61); Albumin, Serum 2.4 g/dL (3.2-5.0); Alkaline Phosphatase 70 U/L (45-117); Anion Gap 3 (5-15); BUN 9 mg/dL (7-18); BUN/Creat Ratio 14.5 RATIO (10-20); Chloride 108 mmol/L (98-107); Creatinine, Serum 0.62 mg/dL (0.70-1.30); EST Glomerular Filtration Rate 145 mL/min (>60); Est Glom Filt Rate - Afr Amer 175 mL/min (>60); Estimated Creatinine Clearance 145.54 ml/min; Glucose 127 mg/dL (74-106); Potassium 3.3 mmol/L (3.5-5.1); Protein, Total 5.4 g/dL (6.4-8.2); Sodium Level 139 mmol/L (136-145)
[2020-04-11 09:05] LABS: Bedside Glucose 132 mg/dL (70-110)
[2020-04-11 09:08] LABS: Magnesium 2.2 mg/dL (1.6-2.6)
[2020-04-11] MEDS: Enoxaparin 40 MG/0.4 ML Syringe SC (09:33)
--- NOTE | 2020-04-11 10:23 | PCM.PN.PUL ---
Patient Problems: Active and Suspected Problems Severe sepsis (Acute) Cellulitis (Acute) Hyperglycemia (Acute) Subjective: Patient transferred out of the intensive care unit yesterday. Patient overall feels subjectively different and states that he feels that he has a stuffy head. Patient states his lower extremity pain is much improved. Patient did have significant fever overnight and is somewhat concerned that the need for supplemental oxygen. - Physical Exam Vitals/I&O's: Vital Signs Temp Pulse Resp BP Pulse Ox 37.0 C 98 18 146/73 H 94 04/11/20 08:00 04/11/20 08:00 04/11/20 08:00 04/11/20 08:00 04/11/20 08:15 Oxygen Flow Rate (L/min) 3 Oxygen Delivery Method Nasal Cannula Weight: 101.5 kg Body Mass Index (BMI) 30.4 Finger Stick Blood Glucose 483 Intake and Output for Last 24 Hours 04/09/20 04/10/20 04/11/20 23:59 23:59 23:59 Intake Total 4163.58 / 4363.58 3603.75 / 3603.75 1361.25 / 1361.25 Output Total 550 / 1000 1800 / 1800 Balance 3613.58 / 3363.58 1803.75 / 1803.75 1361.25 / 1361.25 General: Alert, Oriented x3, Cooperative, No apparent distress, Well developed, Well nourished, - - Appears older than stated age. Speaking in full sentences HEENT: Atraumatic, PERRLA, EOMI, Normocephalic, - - No scleral icterus or injection noted Oral: Moist Mucosa, No Gingival or Mucosal Lesions/ Ulcerations Neck: Supple, No Nodes, Trachea Midline, JVD, Right Lungs: No rhonchi, No wheeze, Diminished, Rales - Right base, - - Symmetric expansion Cardiovascular: Normal S1, Normal S2, No murmurs, No rub noted, No Gallop, Tachycardic Abdomen: Bowel Sounds Present, Soft, Non Tender, Non-Distended, Obese Extremities: No clubbing, No cyanosis, Edema - Right greater than left lower extremity Skin: Rash Present - Warmth and redness improved on right lower extremity Musculoskeletal: Tenderness - Improved Lymphatic: No Cervical, Supraclavicular, or Inguinal Adenopathy Neurological: Cranial nerves II-XII grossly intact, Neuro grossly intact, Motor Exam 5/5 strength throughout Psych/Mental Status: Alert and oriented to time, place, person, mood and affect Microbiology Past 72 Hours 04/09/20 17:25 Urine, Clean Catch Urine Culture - Preliminary Culture exhibits no growth. Laboratory Results 04/10/20 04:55: Hemoglobin A1c 12.6 H 04/10/20 11:04: POC Glucose 407 H 04/10/20 17:29: POC Glucose 162 H 04/10/20 21:08: Vancomycin Trough 7.3 04/10/20 21:29: POC Glucose 210 H 04/11/20 02:10: POC Glucose 161 H 04/11/20 07:16: WBC 8.7, RBC 4.35 L, Hgb 12.9 L, Hct 37.6 L, MCV 86.4, MCH 29.7, MCHC 34.3, RDW Std Deviation 39.3, RDW Coeff of Paul 12.6, Plt Count 155, MPV 11.1, Immature Gran % (Auto) 0.500, Neut % (Auto) 77.5 H, Lymph % (Auto) 13.9 L, O'Brien % (Auto) 7.3, Eos % (Auto) 0.5, Baso % (Auto) 0.3, Absolute Neuts (auto) 6.7, Absolute Lymphs (auto) 1.20, Nucleated RBC % 0 04/11/20 07:16: Sodium 139, Potassium 3.3 L, Chloride 108 H, Carbon Dioxide 28.0, Anion Gap 3 L, BUN 9, Creatinine 0.62 L, Estim Creat Clear Calc 145.54, Est GFR (MDRD) Af Amer 175, Est GFR (MDRD) Non-Af 145, BUN/Creatinine Ratio 14.5, Glucose 127 H, Calcium 8.0 L, Total Bilirubin 0.80, AST 15, ALT 16, Alkaline Phosphatase 70, Total Protein 5.4 L, Albumin 2.4 L, Globulin 3.0, Albumin/Globulin Ratio 0.8 L 04/11/20 07:16: Magnesium 2.2 04/11/20 08:00: POC Glucose 132 H Current Medications Acetaminophen (Tylenol) 650 mg PO Q6H PRN PRN PRN Reason: Pain Score 1-10/Temp > 100.7 F Last Admin: 04/11/20 04:04 Dose: 650 mg Documented by: Calcium Carbonate (Tums) 500 mg PO Q6H PRN PRN PRN Reason: heart burn Last Admin: 04/11/20 02:56 Dose: 500 mg Documented by: Dextrose (D50w Syringe) 0 gm IV X1 PRN; Protocol PRN Reason: Hypoglycemia Enoxaparin Sodium (Lovenox) 40 mg SC DAILY [facility] Last Admin: 04/11/20 09:33 Dose: 40 mg Documented by: Glucagon () 1 mg IM .X1 PRN PRN Reason: Hypoglycemia Vancomycin IV Pharmacy to Dose (1 ea/ Sodium Chloride) 500 mls @ 250 mls/hr IV X1 PRN; Protocol PRN Reason: Rx to Dose Cefazolin Sodium 2 gm/ Sodium (Chloride) 110 mls @ 150 mls/hr IV Q8 DELMA Last Infusion: 04/11/20 05:55 Dose: Infused Documented by: Sodium Chloride () 250 mls @ 15 mls/hr IV .[id number] PRN PRN Reason: Saline Flush Last Infusion: 04/11/20 02:25 Dose: 0 mls/hr Documented by: Sodium Chloride () 250 mls @ 15 mls/hr IV .[id number] PRN PRN Reason: Additional IVPB Infusion Vancomycin HCl 1,750 mg/ (Sodium Chloride) 535 mls @ 250 mls/hr IV Q8H [facility] Last Infusion: 04/11/20 08:15 Dose: Infused Documented by: Insulin Glargine (Lantus (Bkc)) 25 units SC BID [facility] Last Admin: 04/11/20 08:09 Dose: 25 u Documented by: Insulin Human Lispro (Humalog Kwikpen (Bkc)) 0 unit SC ACHS & 3AM DELMA; Protocol Last Admin: 04/11/20 08:09 Dose: Not Given Documented by: Insulin Human Lispro (Humalog Kwikpen (Bkc)) 5 unit SC TIDAC [facility] Last Admin: 04/11/20 08:09 Dose: 5 u Documented by: Melatonin (Melatonin) 3 mg PO QHS PRN PRN PRN Reason: INSOMNIA Ondansetron HCl (Zofran) 4 mg IV Q8H PRN PRN PRN Reason: NAUSEA/VOMITING Oxycodone HCl (Oxyir) 5 mg PO Q4H PRN PRN PRN Reason: Pain Score 4-5/10 Last Admin: 04/10/20 06:27 Dose: 5 mg Documented by: Oxycodone HCl (Oxyir) 10 mg PO Q4H PRN PRN PRN Reason: Pain Score 6-10/10 Last Admin: 04/11/20 08:08 Dose: 10 mg Documented by: Pantoprazole Sodium (Protonix) 40 mg PO DAILY [facility] Last Admin: 04/11/20 02:56 Dose: 40 mg Documented by: Sodium Chloride () 10 - 40 ml IV UD PRN PRN Reason: SALINE FLUSH Last Admin: 04/11/20 08:08 Dose: 10 ml Documented by: Medical Necessity - Tobacco Use Smoking Status: Never smoker Assessment/Plan All Active Problems Severe sepsis (Acute) Cellulitis (Acute) Hyperglycemia (Acute) RECOMMENDATIONS: 1. Aggressive blood sugar control 2. Continue empiric antibiotics 3. Replete potassium. Dosed with Lasix 4. Await lower extremity Dopplers for possible DVT 5. Consider outpatient evaluation by endocrine IMPRESSIONS: 1. Severe sepsis secondary to right lower extremity cellulitis Patient with warmth, erythema and tenderness of the right lower extremity. Patient does not have any visible wounds noted at this time. Patient likely has circulatory complications from poor diabetic control leading to current condition. Patient is on appropriate antibiotics at this time. Patient received significant fluid resuscitation yesterday and this may be leading to current hypoxic respiratory insufficiency. Will replete potassium and give a dose of Lasix to see if this improves. Patient was also advised to continue with incentive spirometer. 2. Hyperglycemia secondary to poorly controlled insulin-dependent diabetes mellitus Patient reports that he checks his glucose about twice per week. Hemoglobin A1c can be checked as an outpatient. We will continue aggressive management at this time. Patient is aware of the possible complications of continued noncompliance with insulin therapy. However, outpatient follow-up with endocrine would be appropriate. Patient may have an element of volume depletion secondary to uncontrolled glucose in addition to increased vascular leakage associated with severe sepsis. 3. Sinus tachycardia/hypertension/pseudohyponatremia/poor compliance/acute hypoxic respiratory insufficiency Complicates care, management, recovery and prognosis. Patient did require 3 L nasal cannula overnight to maintain saturations in the setting of tachycardia. Patient has a possible palpable cord of the right lower extremity. Awaiting Doppler studies for evaluation. Okay to discontinue IV fluids from my perspective Inpatient E&M: 82421 Subs Hosp L2
[2020-04-11] MEDS: Furosemide 20 MG/2 ML VIAL IV (10:48)
[2020-04-11 10:56] LABS: Bedside Glucose 127 mg/dL (70-110)
[2020-04-11] MEDS: Potassium Chloride 10mEq/100mL 10 MEQ/100 ML IV.SOLN. 100 MEQ IV BOLUS ×4 (11:01→14:29)
[2020-04-11] MEDS: Ondansetron 4 MG/2 ML Vial IV (12:08)
[2020-04-11 12:36] LABS: Bedside Glucose 132 mg/dL (70-110)
[2020-04-11 17:00] LABS: Bedside Glucose 183 mg/dL (70-110)
[2020-04-11 22:14] LABS: Vancomycin, Trough Level 19.8 ug/mL (5.0-15.0)
[2020-04-11] MEDS: Senna/Docusate Sodium 1 Tablet 2 TABLET PO (22:20)
[2020-04-11 22:40] LABS: Bedside Glucose 194 mg/dL (70-110)
--- NOTE | 2020-04-12 01:59 | PCM.RX.CS ---
Consult Pharmacy has been consulted to manage selected antiobiotic: Vancomycin Type of Consult: Follow-up Suspected Infection: Sepsis Prior Doses of Antibiotics Received/Current Regimen: Medications Vancomycin HCl 1,750 mg/ (Sodium Chloride) 535 mls @ 250 mls/hr IV Q8H DELMA Last Admin: 04/11/20 23:59 Dose: 250 mls/hr Labs: Sodium 139 mmol/L (136-145) 04/11/20 07:16 Potassium 3.3 mmol/L (3.5-5.1) L 04/11/20 07:16 Chloride 108 mmol/L (98-107) H 04/11/20 07:16 Carbon Dioxide 28.0 mmol/L (21.0-32.0) 04/11/20 07:16 Anion Gap 3 (5-15) L 04/11/20 07:16 BUN 9 mg/dL (7-18) 04/11/20 07:16 Creatinine 0.62 mg/dL (0.70-1.30) L 04/11/20 07:16 Est GFR (MDRD) Af Amer 175 mL/min (>60) 04/11/20 07:16 Est GFR (MDRD) Non-Af 145 mL/min (>60) 04/11/20 07:16 BUN/Creatinine Ratio 14.5 RATIO (10-20) 04/11/20 07:16 Glucose 127 mg/dL (74-106) H 04/11/20 07:16 Vancomycin Trough 19.8 ug/mL (5.0-15.0) H 04/11/20 21:33 Microbiology: Microbiology 04/09/20 17:25 Urine, Clean Catch Urine Culture - Preliminary Culture exhibits no growth. Weight used for dosin.5 kg Estimated Creatinine Clearance: >120 Goal Trough: 15-20 mcg/mL Pharmacy Plan for Drug Dosing: Trough level of 19.8 was within target range of 15-20. Will continue same dosing and re-draw trough 04/15/20. Pharmacy Service will continue to monitor and adjust dosing as required. Follow-Up Labs: Trough Vancomycin Labs to be done on [date and time ordered]: 04/15/20 @1330
[2020-04-12 03:00] VITALS: PULSE 106
[2020-04-12 03:30] LABS: Bedside Glucose 141 mg/dL (70-110)
[2020-04-12 03:50] VITALS: BP 147/83; PULSE 111; RESP 18; TEMP 37.8; O2SAT 95
[2020-04-12] MEDS: Cefazolin 2 GM in 0.9% Normal Saline 100 ML IV (06:12)
[2020-04-12 06:17] VITALS: BP 142/70; PULSE 110; RESP 16; TEMP 36.9; O2SAT 95
[2020-04-12 07:00] VITALS: PULSE 102
[2020-04-12 07:33] VITALS: O2SAT 96
--- NOTE | 2020-04-12 08:09 | PN_ITS ---
Patient Problems: Active and Suspected Problems Severe sepsis (Acute) Cellulitis (Acute) Hyperglycemia (Acute) Reason for Visit: Late entry note: Patient was seen on 04/11/20 morning Subjective: No new complains. Right thigh streaking was gone. Erythema of right lower leg very slightly improved, not much Vitals/I&O's: Vital Signs Temp Pulse Resp BP Pulse Ox 98.4 F 102 H 16 142/70 H 96 04/12/20 06:17 04/12/20 07:00 04/12/20 06:17 04/12/20 06:17 04/12/20 07:33 Oxygen Flow Rate (L/min) 3 Oxygen Delivery Method Room Air Weight: 101.5 kg Body Mass Index (BMI) 30.4 Finger Stick Blood Glucose 483 Intake and Output for Last 24 Hours 04/10/20 04/11/20 04/12/20 23:59 23:59 23:59 Intake Total 3603.75 / 3603.75 3146.25 / 3146.25 615 / 615 Output Total 1800 / 1800 3525 / 3525 Balance 1803.75 / 1803.75 -378.75 / -378.75 615 / 615 Microbiology Past 72 Hours 04/09/20 17:00 Blood Culture (Wb) - Anticubital Right Blood Culture - Preliminary No growth in 48 hours. 04/09/20 16:40 Blood Culture (Wb) - Anticubital Left Blood Culture - Preliminary No growth in 48 hours. 04/09/20 17:25 Urine, Clean Catch Urine Culture - Preliminary Culture exhibits no growth. Laboratory Results 04/11/20 07:16: Magnesium 2.2 04/11/20 08:00: POC Glucose 132 H 04/11/20 10:50: POC Glucose 127 H 04/11/20 12:06: POC Glucose 132 H 04/11/20 16:55: POC Glucose 183 H 04/11/20 21:33: Vancomycin Trough 19.8 H 04/11/20 22:04: POC Glucose 194 H 04/12/20 02:01: POC Glucose 141 H Current Medications Acetaminophen (Tylenol) 650 mg PO Q6H PRN PRN PRN Reason: Pain Score 1-10/Temp > 100.7 F Last Admin: 04/11/20 18:32 Dose: 650 mg Documented by: Calcium Carbonate (Tums) 500 mg PO Q6H PRN PRN PRN Reason: heart burn Last Admin: 04/11/20 13:18 Dose: 500 mg Documented by: Dextrose (D50w Syringe) 0 gm IV X1 PRN; Protocol PRN Reason: Hypoglycemia Enoxaparin Sodium (Lovenox) 40 mg SC DAILY [facility] Last Admin: 04/11/20 09:33 Dose: 40 mg Documented by: Glucagon () 1 mg IM .X1 PRN PRN Reason: Hypoglycemia Vancomycin IV Pharmacy to Dose (1 ea/ Sodium Chloride) 500 mls @ 250 mls/hr IV X1 PRN; Protocol PRN Reason: Rx to Dose Cefazolin Sodium 2 gm/ Sodium (Chloride) 110 mls @ 150 mls/hr IV Q8 DELMA Last Infusion: 04/12/20 06:56 Dose: Infused Documented by: Sodium Chloride () 250 mls @ 15 mls/hr IV .[id number] PRN PRN Reason: Saline Flush Last Infusion: 04/11/20 02:25 Dose: 0 mls/hr Documented by: Sodium Chloride () 250 mls @ 15 mls/hr IV .[id number] PRN PRN Reason: Additional IVPB Infusion Vancomycin HCl 1,750 mg/ (Sodium Chloride) 535 mls @ 250 mls/hr IV Q8H [facility] Last Admin: 04/12/20 06:56 Dose: 250 mls/hr Documented by: Insulin Glargine (Lantus (Bkc)) 25 units SC BID [facility] Last Admin: 04/11/20 22:06 Dose: 25 u Documented by: Insulin Human Lispro (Humalog Kwikpen (Bkc)) 0 unit SC ACHS & 3AM DELMA; Protocol Last Admin: 04/12/20 02:01 Dose: Not Given Documented by: Insulin Human Lispro (Humalog Kwikpen (Bkc)) 5 unit SC TIDAC [facility] Last Admin: 04/11/20 16:56 Dose: 5 u Documented by: Melatonin (Melatonin) 3 mg PO QHS PRN PRN PRN Reason: INSOMNIA Ondansetron HCl (Zofran) 4 mg IV Q8H PRN PRN PRN Reason: NAUSEA/VOMITING Last Admin: 04/11/20 12:08 Dose: 4 mg Documented by: Oxycodone HCl (Oxyir) 5 mg PO Q4H PRN PRN PRN Reason: Pain Score 4-5/10 Last Admin: 04/10/20 06:27 Dose: 5 mg Documented by: Oxycodone HCl (Oxyir) 10 mg PO Q4H PRN PRN PRN Reason: Pain Score 6-10/10 Last Admin: 04/11/20 08:08 Dose: 10 mg Documented by: Pantoprazole Sodium (Protonix) 40 mg PO DAILY [facility] Last Admin: 04/11/20 02:56 Dose: 40 mg Documented by: Senna/Docusate Sodium (Senokot-S, Audra-Colace) 2 tablet PO DAILY PRN PRN PRN Reason: CONSTIPATION Last Admin: 04/11/20 22:20 Dose: 2 tablet Documented by: Sodium Chloride () 10 - 40 ml IV UD PRN PRN Reason: SALINE FLUSH Last Admin: 04/11/20 08:08 Dose: 10 ml Documented by: STROKE Vital Signs/Narrative: Vital Signs Temp Pulse Resp BP Pulse Ox 04/12/20 07:33 96 04/12/20 07:00 102 H 04/12/20 06:17 98.4 F 110 H 16 142/70 H 95 Medical Necessity - Tobacco Use Smoking Status: Never smoker Assessment/Plan All Active Problems Severe sepsis (Acute) Cellulitis (Acute) Hyperglycemia (Acute) 1. Severe sepsis secondary to right leg cellulitis, improving On IV vancomycin and cefazolin. Will continue same 2. Hypokalemia, K is 3.3, replaced, recheck in a.m. 3. Hypomagnesemia, resolved 4. Type II DM, HgbA1c is 12.6, blood sugars is controlled Continue on Lantus 25 twice daily, Humalog 5 units 3 times daily as well as insulin sliding scale with blood glucose checks 3. Hypertension, fairly uncontrolled Will start on [id number] daily, continue to monitor 4. Pseudohyponatremia secondary to uncontrolled diabetes We will continue to monitor 5. DVT prophylaxis with Lovenox subcu Inpatient E&M: 29875 Subs Hosp L2
[2020-04-12] MEDS: Insulin Lispro 100 UNIT/ML INSULN.PEN SC (08:22)
[2020-04-12 08:31] LABS: Bedside Glucose 120 mg/dL (70-110)
[2020-04-12 09:05] LABS: Absolute Lymphocyte Count 0.92 X10^3/uL (0.83-4.51); Absolute Neutrophil Count 5.3 X10^3/uL (2.0-7.7); Basophil# 0.02 X10^3/uL; Basophil% 0.3 % (0-1); Eosinophil# 0.05 X10^3/uL; Eosinophils% 0.7 % (0-5); Hemoglobin 13.1 g/dL (13.0-16.5); Lymphocyte # 0.92 X10^3/ul (4.0); Lymphocyte % 13.4 % (19-41); Mean Corp Hgb Conc 34.5 g/dL (32-36); Mean Corpuscular Hgb 29.4 pg (27.0-32.0); Mean Corpuscular Volume 85.4 fL (80-94); Mean Platelet Vol. 10.8 fl (6.2-12.0); Monocyte# 0.54 X10^3/uL; Monocyte% 7.9 % (0-10); NRBC Flagged by Analyzer 0 % (0-5); Neutrophil # 5.32 X10^3/uL (2.7-7.7); Neutrophil % 77.4 % (47-70); Platelet Count 178 K/mm3 (150-450); RBC Distribution Width CV 12.1 % (11.6-14.6); RBC Distribution Width SD 37.7 fl (35.1-43.9); Red Blood Count 4.45 M/mm3 (4.6-6.2); White Blood Count 6.9 K/mm3 (4.4-11.0)
[2020-04-12 09:19] LABS: ALB/GLOB Ratio 0.7 RATIO (0.9-2.4); AST(SGOT) 14 U/L (15-37); Alanine Aminotransfer ALT/SGPT 10 U/L (16-61); Albumin, Serum 2.4 g/dL (3.2-5.0); Alkaline Phosphatase 71 U/L (45-117); Anion Gap 3 (5-15); BUN 7 mg/dL (7-18); BUN/Creat Ratio 11.8 RATIO (10-20); Calcium,Total 8.3 mg/dL (8.5-10.1); Chloride 109 mmol/L (98-107); Creatinine, Serum 0.59 mg/dL (0.70-1.30); EST Glomerular Filtration Rate 152 mL/min (>60); Est Glom Filt Rate - Afr Amer 184 mL/min (>60); Estimated Creatinine Clearance 152.94 ml/min; Globulin 3.3 g/dL (2.2-4.2); Glucose 118 mg/dL (74-106); Potassium 3.2 mmol/L (3.5-5.1); Protein, Total 5.7 g/dL (6.4-8.2); Sodium Level 140 mmol/L (136-145)
--- NOTE | 2020-04-12 09:24 | DCINST_ITS ---
- Discharge Diagnoses Current Active Problems: Current Active and Chronic Problems Severe sepsis (Acute) Cellulitis (Acute) Diabetes (Chronic) Hyperglycemia (Acute) HTN (hypertension) (Chronic) Reason(s) for Visit for Discharge Instructions: Right leg cellulitis You will use the following diet at home:: Calorie/Carbohydrate Controlled (specify 1200, 1400, etc) - 1800 calories, Cardiac Your food should be the consistency of: Regular Your liquids should be the consistency of: Regular/Thin Discharge Activity: Return to Normal Activity Instructions: Diabetes: Caring for Your Body, Diabetes: Inspecting Your Feet, Diabetes: Keeping Feet Healthy, Diabetes: Shopping for and Preparing Meals, Diabetes: The Benefits of Exercise, Diabetes: Understanding Carbohydrates, Fats, and Protein, Eating Out When You Have Diabetes, Healthy Meals for Diabetes, Exercise to Manage Your Blood Sugar, Using Injected Insulin Additional Instructions: Complete your antibiotics as prescribed. Follow a low fat,low salt, 1800 calorie diet as discussed by hand therapist. Take your insulin daily. Take note of your new medication- Lisinopril. You will need repeat blood work within 1 week to follow up on your kidney function and potassium levels. Continue to elevate yur right lower leg. Let your doctor know if you get worsening redness, GI symptoms or develop fever or chills. Allergies/Adverse Reactions: Allergies metformin Allergy (Verified 04/09/20 15:40) PT UNSURE OF REACTION Medications to take at Discharge Acetaminophen [Tylenol Tablet] 650 mg PO Q6H PRN PRN tablet 04/12/20 Cephalexin [Keflex] 500 mg PO Q6H 7 Days #28 cap 04/12/20 Insulin Glargine [Lantus SoloStar Pen] 25 units SUBCUT BID #1 pen 04/12/20 Insulin Lispro [Humalog KwikPen] 5 unit SUBCUT TIDAC #1 insuln.pen 04/12/20 Insulin Lispro [Humalog KwikPen] See Protocol SUBCUT ACHS & 3AM #1 insuln.pen 04/12/20 Lisinopril [Zestril] 5 mg PO DAILY 30 Days #30 tab 04/12/20 Potassium Chloride [Klor-Con M20] 40 meq PO DAILY 5 Days #10 tab.er.prt 04/12/20 The following prescriptions were given: Insulin Lispro [Humalog KwikPen] 5 unit SUBCUT TIDAC #1 insuln.pen Transmission Status: Pending to [facility] #30 Insulin Lispro [Humalog KwikPen] See Protocol SUBCUT ACHS & 3AM #1 insuln.pen Transmission Status: Pending to [facility] #30 Cephalexin [Keflex] 500 mg PO Q6H 7 Days #28 cap Transmission Status: Pending to [facility] #30 Potassium Chloride [Klor-Con M20] 40 meq PO DAILY 5 Days #10 tab.er.prt Insulin Glargine [Lantus SoloStar Pen] 25 units SUBCUT BID #1 pen Transmission Status: Pending to [facility]30 Lisinopril [Zestril] 5 mg PO DAILY 30 Days #30 tab Transmission Status: Pending to [facility] #30 Primary Care Physician: Higinio Tovar MD [Primary Care Provider] - Please follow up with your Primary Care Physician in: within 1-2 weeks Test Results: Test results from this visit will be discussed in further detail at your follow- up appointment, if applicable. Proposed Discharge Date: 04/12/20
--- NOTE | 2020-04-12 09:29 | DS.PCM_ITS ---
Discharge Date and Diagnosis Date of Admission: 04/09/20 Date of Discharge: 04/12/20 - Primary Discharge Diagnosis Acute Problems: Active Problems Severe sepsis Right lower leg cellulitis Hypokalemia Hypomagnesemia Uncontrolled hypertension Uncontrolled type II DM - Secondary Discharge Diagnosis Chronic Problems: Chronic Problems Diabetes (Chronic) HTN (hypertension) (Chronic) Hospital Course and Treatment Imaging Results: Clinical Impression(s) from Imaging Studies Chest X-Ray 04/09/20 16:22 IMPRESSION: Normal x-ray examination of the chest. Electronically Signed: Carroll Echeverria MD at 17:34 EDT Tel , Service support , Tibia/Fibula X-Ray 04/09/20 16:23 IMPRESSION: Normal x-ray examination of the tibia and fibula. Electronically Signed: Carroll Echeverria MD at 17:34 EDT Tel , Service support , Critical care Operations: None Procedures: None Summary of Care Provided: The patient is a 49 year old M with past medical history of hypertension, type II DM complicated by retinopathy who presented with right lower leg swelling and erythema that started on the day of admission. This was associated with fever and chills. In the emergency department, he had elevated WBC count of 15.1, respiratory rate was in the 20s, heart rate was elevated at 130s. His blood glucose was 483. Lactic acid was 2.2. Patient was started on IV Zosyn in the emergency department as well as IV fluids. He was admitted to the ICU and started on IV vancomycin and cefazolin. Patient continued to improve and was transferred from the ICU to was a end of the next day to the PCU. He continued to be slightly tachycardic. His lower extremity erythema and swelling improved. He was maintained on IV cefazolin. Patient had hypokalemia and hypomagnesemia that were replaced. His blood sugars were also uncontrolled, his Hgb A1c was 12.6. He was started on Lantus 25 units twice daily, pre-meal insulin 12 units as well as insulin sliding scale. Dietitian was consulted and has several sessions of medication with patient. Patient was educated on the strict low- calorie diet. Continue to improve and was discharged on Keflex. He was given some days off work. He will follow-up with his primary care doctor within 1 to 2 weeks. Subjective: On the day of discharge, patient was seen and examined. Denied any new comp laints. His left lower extremity swelling was improved. Objective: Physical exam: General: Alert, Oriented x3, Cooperative HEENT: Atraumatic, PERRLA, EOMI, Normocephalic Neck: Supple, No JVD, Negative Carotid Bruits Lungs: Clear to auscultation, Normal air movement Cardiovascular: Normal S1, Normal S2, No murmurs, Tachycardic Abdomen: Bowel Sounds Present, Soft, Non Tender Extremities: No edema, Capillary Refill Less than 3 Seconds, Tenderness - Right leg Skin: - - Improved erythema and differential warmth of right leg, Brownish pigmentation of both lower legs. Musculoskeletal: No Muscle Wasting, Tenderness - Right leg Neurological: Cranial nerves II-XII grossly intact Psych/Mental Status: Normal Affect, Appropriate - Physical Exam Vitals/I&O's: Vital Signs Temp Pulse Resp BP Pulse Ox 98.4 F 102 H 16 142/70 H 96 04/12/20 06:17 04/12/20 07:00 04/12/20 06:17 04/12/20 06:17 04/12/20 07:33 Oxygen Flow Rate (L/min) 3 Oxygen Delivery Method Room Air Weight: 101.7 kg Body Mass Index (BMI) 30.4 Finger Stick Blood Glucose 483 Intake and Output for Last 24 Hours 04/10/20 04/11/20 04/12/20 23:59 23:59 23:59 Intake Total 3603.75 / 3603.75 3146.25 / 3146.25 615 / 615 Output Total 1800 / 1800 3525 / 3525 Balance 1803.75 / 1803.75 -378.75 / -378.75 615 / 615 Microbiology Past 72 Hours 04/09/20 17:25 Urine, Clean Catch Urine Culture - Final Culture exhibits no growth. 04/09/20 17:00 Blood Culture (Wb) - Anticubital Right Blood Culture - Preliminary No growth in 48 hours. 04/09/20 16:40 Blood Culture (Wb) - Anticubital Left Blood Culture - Preliminary No growth in 48 hours. Laboratory Results 04/11/20 10:50: POC Glucose 127 H 04/11/20 12:06: POC Glucose 132 H 04/11/20 16:55: POC Glucose 183 H 04/11/20 21:33: Vancomycin Trough 19.8 H 04/11/20 22:04: POC Glucose 194 H 04/12/20 02:01: POC Glucose 141 H 04/12/20 08:21: POC Glucose 120 H 04/12/20 08:55: WBC 6.9, RBC 4.45 L, Hgb 13.1, Hct 38.0 L, MCV 85.4, MCH 29.4, MCHC 34.5, RDW Std Deviation 37.7, RDW Coeff of Paul 12.1, Plt Count 178, MPV 10.8, Immature Gran % (Auto) 0.300, Neut % (Auto) 77.4 H, Lymph % (Auto) 13.4 L, [place] % (Auto) 7.9, Eos % (Auto) 0.7, Baso % (Auto) 0.3, Absolute Neuts (auto) 5.3, Absolute Lymphs (auto) 0.92, Nucleated RBC % 0 04/12/20 08:55: Sodium 140, Potassium 3.2 L, Chloride 109 H, Carbon Dioxide 28.0, Anion Gap 3 L, BUN 7, Creatinine 0.59 L, Estim Creat Clear Calc 152.94, Est GFR (MDRD) Af Amer 184, Est GFR (MDRD) Non-Af 152, BUN/Creatinine Ratio 11.8, Glucose 118 H, Calcium 8.3 L, Total Bilirubin 0.90, AST 14 L, ALT 10 L, Alkaline Phosphatase 71, Total Protein 5.7 L, Albumin 2.4 L, Globulin 3.3, Albumin/Globulin Ratio 0.7 L Current Medications Acetaminophen (Tylenol) 650 mg PO Q6H PRN PRN PRN Reason: Pain Score 1-10/Temp > 100.7 F Last Admin: 04/11/20 18:32 Dose: 650 mg Documented by: Calcium Carbonate (Tums) 500 mg PO Q6H PRN PRN PRN Reason: heart burn Last Admin: 04/11/20 13:18 Dose: 500 mg Documented by: Dextrose (D50w Syringe) 0 gm IV X1 PRN; Protocol PRN Reason: Hypoglycemia Enoxaparin Sodium (Lovenox) 40 mg SC DAILY [facility] Last Admin: 04/11/20 09:33 Dose: 40 mg Documented by: Glucagon () 1 mg IM .X1 PRN PRN Reason: Hypoglycemia Cefazolin Sodium 2 gm/ Sodium (Chloride) 110 mls @ 150 mls/hr IV Q8 DELMA Last Infusion: 04/12/20 06:56 Dose: Infused Documented by: Sodium Chloride () 250 mls @ 15 mls/hr IV .[id number] PRN PRN Reason: Saline Flush Last Infusion: 04/11/20 02:25 Dose: 0 mls/hr Documented by: Sodium Chloride () 250 mls @ 15 mls/hr IV .[id number] PRN PRN Reason: Additional IVPB Infusion Insulin Glargine (Lantus (Bkc)) 25 units SC BID [facility] Last Admin: 04/12/20 08:24 Dose: 25 u Documented by: Insulin Human Lispro (Humalog Kwikpen (Bkc)) 0 unit SC ACHS & 3AM [facility]; Protocol Last Admin: 04/12/20 08:22 Dose: Not Given Documented by: Insulin Human Lispro (Humalog Kwikpen (Bkc)) 5 unit SC TIDAC [facility] Last Admin: 04/12/20 08:22 Dose: 5 u Documented by: Lisinopril (Zestril) 5 mg PO DAILY [facility] Melatonin (Melatonin) 3 mg PO QHS PRN PRN PRN Reason: INSOMNIA Ondansetron HCl (Zofran) 4 mg IV Q8H PRN PRN PRN Reason: NAUSEA/VOMITING Last Admin: 04/11/20 12:08 Dose: 4 mg Documented by: Oxycodone HCl (Oxyir) 5 mg PO Q4H PRN PRN PRN Reason: Pain Score 4-5/10 Last Admin: 04/10/20 06:27 Dose: 5 mg Documented by: Oxycodone HCl (Oxyir) 10 mg PO Q4H PRN PRN PRN Reason: Pain Score 6-10/10 Last Admin: 04/11/20 08:08 Dose: 10 mg Documented by: Pantoprazole Sodium (Protonix) 40 mg PO DAILY [facility] Last Admin: 04/11/20 02:56 Dose: 40 mg Documented by: Potassium Chloride (K-Dur) 60 meq PO X1 ONE Stop: 04/12/20 09:31 Senna/Docusate Sodium (Senokot-S, Audra-Colace) 2 tablet PO DAILY PRN PRN PRN Reason: CONSTIPATION Last Admin: 04/11/20 22:20 Dose: 2 tablet Documented by: Sodium Chloride () 10 - 40 ml IV UD PRN PRN Reason: SALINE FLUSH Last Admin: 04/11/20 08:08 Dose: 10 ml Documented by: Discharge Diet: Low fat/ Low Cholesterol, 2000 mg Sodium Diet, Carb Control Diet Discharge Activity: Return to Normal Activity Home Medications: Medications to take at Discharge Cephalexin [Keflex] 500 mg PO Q6H 7 Days #28 cap 04/12/20 Potassium Chloride [Klor-Con M20] 40 meq PO DAILY 5 Days #10 tab.er.prt 04/12/20 RX: Acetaminophen [Tylenol Tablet] 650 mg PO Q6H PRN PRN tab 04/12/20 RX: Insulin Glargine [Lantus SoloStar Pen] 25 units SUBCUT BID #1 pen 04/12/20 RX: Insulin Lispro [Humalog KwikPen] 5 unit SUBCUT TIDAC #1 insuln.pen 04/12/20 RX: Insulin Lispro [Humalog KwikPen] See Protocol SUBCUT ACHS & 3AM #1 insuln.pen 04/12/20 RX: Lisinopril [Zestril] 5 mg PO DAILY 30 Days #30 tab 04/12/20 Following Prescriptions Were Given to Patient: RX: Insulin Lispro [Humalog KwikPen] 5 unit SUBCUT TIDAC #1 insuln.pen Transmission Status: Received by [facility] RX: Insulin Lispro [Humalog KwikPen] See Protocol SUBCUT ACHS & 3AM #1 insuln.pen Transmission Status: Received by [facility] Cephalexin [Keflex] 500 mg PO Q6H 7 Days #28 cap Transmission Status: Received by [facility] Potassium Chloride [Klor-Con M20] 40 meq PO DAILY 5 Days #10 tab.er.prt Prescription Printed RX: Insulin Glargine [Lantus SoloStar Pen] 25 units SUBCUT BID #1 pen Transmission Status: Received by [facility] RX: Lisinopril [Zestril] 5 mg PO DAILY 30 Days #30 tab Transmission Status: Received by [facility] Other Amb Orders: Glucometer Location: None Selected Primary Care Physician: Higinio Tovar MD [Primary Care Provider] - Please follow up with your Primary Care Physician in: within 1-2 weeks Patient Instructions: Using Injected Insulin, Healthy Meals for Diabetes, Eating Out When You Have Diabetes, Exercise to Manage Your Blood Sugar, Diabetes: Keeping Feet Healthy, Diabetes: Inspecting Your Feet, Diabetes: Shopping for and Preparing Meals, Diabetes: Caring for Your Body, Diabetes: The Benefits of Exercise, Diabetes: Understanding Carbohydrates, Fats, and Protein Disposition: Home Minutes spent on discharge:: 40 Patient Condition:: Stable Medical Necessity - Tobacco Use Smoking Status: Never smoker Tobacco Use: Non-smoker Meaningful Use Info Meaningful Use Diagnoses (Choose all that apply): None applicable Inpatient E&M: [id number] [facility]
[2020-04-12 09:40] VITALS: BP 166/96; PULSE 108; RESP 18; TEMP 36.8; O2SAT 93
[2020-04-12] MEDS: Pantoprazole Sodium 40 MG Tablet PO (09:42)
[2020-04-12] MEDS: Enoxaparin 40 MG/0.4 ML Syringe SC (09:42)
--- NOTE | 2020-04-12 10:36 | PN_ITS ---
Patient Problems: Active and Suspected Problems Severe sepsis (Acute) Cellulitis (Acute) Hyperglycemia (Acute) Subjective: Patient did well overnight. Patient feels that he is back to his baseline at this time. Lower extremity swelling and discomfort is improved. - Physical Exam Vitals/I&O's: Vital Signs Temp Pulse Resp BP Pulse Ox 36.8 C 108 H 18 166/96 H 93 04/12/20 09:40 04/12/20 09:40 04/12/20 09:40 04/12/20 09:40 04/12/20 09:40 Oxygen Flow Rate (L/min) 3 Oxygen Delivery Method Room Air Weight: 101.7 kg Body Mass Index (BMI) 30.4 Finger Stick Blood Glucose 483 Intake and Output for Last 24 Hours 04/10/20 04/11/20 04/12/20 23:59 23:59 23:59 Intake Total 3603.75 / 3603.75 3146.25 / 3146.25 1150 / 1150 Output Total 1800 / 1800 3525 / 3525 Balance 1803.75 / 1803.75 -378.75 / -378.75 1150 / 1150 General: Alert, Oriented x3, Cooperative, No apparent distress, Well developed, Well nourished, - - No conversational dyspnea. HEENT: Atraumatic, PERRLA, EOMI, Normocephalic, - - No scleral icterus or injection noted Oral: Moist Mucosa, No Gingival or Mucosal Lesions/ Ulcerations Neck: Supple, No JVD, No Nodes, Trachea Midline Lungs: Clear to auscultation, Normal air movement, No rhonchi, No wheeze, No rales Cardiovascular: Regular rate, Regular Rhythm, Normal S1, Normal S2, No murmurs, No rub noted, No Gallop Abdomen: Bowel Sounds Present, Soft, Non Tender, Non-Distended Extremities: No clubbing, No cyanosis, Edema - Improved Skin: Rash Present - Improved. Less warm. Musculoskeletal: No Tenderness to Palpation of Joints or Extremities Lymphatic: No Cervical, Supraclavicular, or Inguinal Adenopathy Neurological: Cranial nerves II-XII grossly intact, Neuro grossly intact, Motor Exam 5/5 strength throughout Psych/Mental Status: Alert and oriented to time, place, person, mood and affect Microbiology Past 72 Hours 04/09/20 17:25 Urine, Clean Catch Urine Culture - Final Culture exhibits no growth. 04/09/20 17:00 Blood Culture (Wb) - Anticubital Right Blood Culture - Preliminary No growth in 48 hours. 04/09/20 16:40 Blood Culture (Wb) - Anticubital Left Blood Culture - Preliminary No growth in 48 hours. Laboratory Results 04/11/20 10:50: POC Glucose 127 H 04/11/20 12:06: POC Glucose 132 H 04/11/20 16:55: POC Glucose 183 H 04/11/20 21:33: Vancomycin Trough 19.8 H 04/11/20 22:04: POC Glucose 194 H 04/12/20 02:01: POC Glucose 141 H 04/12/20 08:21: POC Glucose 120 H 04/12/20 08:55: WBC 6.9, RBC 4.45 L, Hgb 13.1, Hct 38.0 L, MCV 85.4, MCH 29.4, MCHC 34.5, RDW Std Deviation 37.7, RDW Coeff of Paul 12.1, Plt Count 178, MPV 10.8, Immature Gran % (Auto) 0.300, Neut % (Auto) 77.4 H, Lymph % (Auto) 13.4 L, [place] % (Auto) 7.9, Eos % (Auto) 0.7, Baso % (Auto) 0.3, Absolute Neuts (auto) 5.3, Absolute Lymphs (auto) 0.92, Nucleated RBC % 0 04/12/20 08:55: Sodium 140, Potassium 3.2 L, Chloride 109 H, Carbon Dioxide 28.0, Anion Gap 3 L, BUN 7, Creatinine 0.59 L, Estim Creat Clear Calc 152.94, Est GFR (MDRD) Af Amer 184, Est GFR (MDRD) Non-Af 152, BUN/Creatinine Ratio 11.8, Glucose 118 H, Calcium 8.3 L, Total Bilirubin 0.90, AST 14 L, ALT 10 L, Alkaline Phosphatase 71, Total Protein 5.7 L, Albumin 2.4 L, Globulin 3.3, Albumin/Globulin Ratio 0.7 L Current Medications Acetaminophen (Tylenol) 650 mg PO Q6H PRN PRN PRN Reason: Pain Score 1-10/Temp > 100.7 F Last Admin: 04/11/20 18:32 Dose: 650 mg Documented by: Calcium Carbonate (Tums) 500 mg PO Q6H PRN PRN PRN Reason: heart burn Last Admin: 04/11/20 13:18 Dose: 500 mg Documented by: Dextrose (D50w Syringe) 0 gm IV X1 PRN; Protocol PRN Reason: Hypoglycemia Enoxaparin Sodium (Lovenox) 40 mg SC DAILY [facility] Last Admin: 04/12/20 09:42 Dose: 40 mg Documented by: Glucagon () 1 mg IM .X1 PRN PRN Reason: Hypoglycemia Cefazolin Sodium 2 gm/ Sodium (Chloride) 110 mls @ 150 mls/hr IV Q8 DELMA Last Infusion: 04/12/20 06:56 Dose: Infused Documented by: Sodium Chloride () 250 mls @ 15 mls/hr IV .[id number] PRN PRN Reason: Saline Flush Last Infusion: 04/12/20 09:55 Dose: Infused Documented by: Sodium Chloride () 250 mls @ 15 mls/hr IV .[id number] PRN PRN Reason: Additional IVPB Infusion Insulin Glargine (Lantus (Bkc)) 25 units SC BID [facility] Last Admin: 04/12/20 08:24 Dose: 25 u Documented by: Insulin Human Lispro (Humalog Kwikpen (Bkc)) 0 unit SC ACHS & 3AM [facility]; Protocol Last Admin: 04/12/20 08:22 Dose: Not Given Documented by: Insulin Human Lispro (Humalog Kwikpen (Bkc)) 5 unit SC TIDAC [facility] Last Admin: 04/12/20 08:22 Dose: 5 u Documented by: Lisinopril (Zestril) 5 mg PO DAILY [facility] Last Admin: 04/12/20 09:53 Dose: Not Given Documented by: Melatonin (Melatonin) 3 mg PO QHS PRN PRN PRN Reason: INSOMNIA Ondansetron HCl (Zofran) 4 mg IV Q8H PRN PRN PRN Reason: NAUSEA/VOMITING Last Admin: 04/11/20 12:08 Dose: 4 mg Documented by: Oxycodone HCl (Oxyir) 5 mg PO Q4H PRN PRN PRN Reason: Pain Score 4-5/10 Last Admin: 04/10/20 06:27 Dose: 5 mg Documented by: Oxycodone HCl (Oxyir) 10 mg PO Q4H PRN PRN PRN Reason: Pain Score 6-10/10 Last Admin: 04/11/20 08:08 Dose: 10 mg Documented by: Pantoprazole Sodium (Protonix) 40 mg PO DAILY [facility] Last Admin: 04/12/20 09:42 Dose: 40 mg Documented by: Senna/Docusate Sodium (Senokot-S, Audra-Colace) 2 tablet PO DAILY PRN PRN PRN Reason: CONSTIPATION Last Admin: 04/11/20 22:20 Dose: 2 tablet Documented by: Sodium Chloride () 10 - 40 ml IV UD PRN PRN Reason: SALINE FLUSH Last Admin: 04/11/20 08:08 Dose: 10 ml Documented by: Medical Necessity - Tobacco Use Smoking Status: Never smoker Assessment/Plan All Active Problems Severe sepsis (Acute) Cellulitis (Acute) Hyperglycemia (Acute) RECOMMENDATIONS: 1. Replete potassium. 2. Continue empiric antibiotics 3. Walking oximetry prior to discharge 4. Hemodynamically stable on room air. Will sign off from a critical care/pulmonary perspective. No need for outpatient follow-up 5. Consider outpatient evaluation by endocrine IMPRESSIONS: 1. Severe sepsis secondary to right lower extremity cellulitis Patient with warmth, erythema and tenderness of the right lower extremity. Patient does not have any visible wounds noted at this time. Patient likely has circulatory complications from poor diabetic control leading to current condition. Patient is on appropriate antibiotics at this time. Patient received significant fluid resuscitation presentation and this may be leading to current hypoxic respiratory insufficiency. Patient with good response to diuretic therapy. Recommend walking oximetry prior to discharge. If patient able to tolerate room air, okay to discharge from pulmonary perspective. If still requires supplemental oxygen, additional diuresis could be given. Patient was also advised to continue with incentive spirometer. 2. Hyperglycemia secondary to poorly controlled insulin-dependent diabetes mellitus Patient reports that he checks his glucose about twice per week. Hemoglobin A1c can be checked as an outpatient. We will continue aggressive management at this time. Patient is aware of the possible complications of continued noncompliance with insulin therapy. However, outpatient follow-up with endocrine would be appropriate. 3. Sinus tachycardia/hypertension/pseudohyponatremia/poor compliance/acute hypoxic respiratory insufficiency Complicates care, management, recovery and prognosis. Patient did require 3 L nasal cannula overnight to maintain saturations in the setting of tachycardia. Patient has a possible palpable cord of the right lower extremity. Inpatient E&M: [id number] Subs Hosp L2
--- NOTE | 2020-04-12 12:23 | PHA.DC.MC ---
Pharmacy Service has performed discharge medication reconciliation and counseling for this patient. 1. CEPHALEXIN 500MG PO Q6H 2. INSULIN GLARGINE 25UNITS SC BID 3. INSULIN LISPRO 5UNITS SC TIDAC AND SLIDING SCALE 4. LISINOPRIL 5MG PO DAILY 5. POTASSIUM CHLORIDE 40MEQ PO DAILY X 5 DAYS The patient's discharge medication list was reviewed for discrepancies and discrepancies were resolved. Home Medications Acetaminophen [Tylenol Tablet] 650 mg PO Q6H PRN PRN tab 04/12/20 Cephalexin [Keflex] 500 mg PO Q6H 7 Days #28 cap 04/12/20 Insulin Glargine [Lantus SoloStar Pen] 25 units SUBCUT BID #1 pen 04/12/20 Insulin Lispro [Humalog KwikPen] 5 unit SUBCUT TIDAC #1 insuln.pen 04/12/20 Insulin Lispro [Humalog KwikPen] See Protocol SUBCUT ACHS & 3AM #1 insuln.pen 04/12/20 Lisinopril [Zestril] 5 mg PO DAILY 30 Days #30 tab 04/12/20 Potassium Chloride [Klor-Con M20] 40 meq PO DAILY 5 Days #10 tab.er.prt 04/12/20 The patient was counseled on the following discharge medications and changes in medications for homegoing were reviewed. The Reason for Use, instructions for use, and potential side effects were reviewed for all new medications. The patient's questions regarding all of their medications were answered. The patient was able to verbally demonstrate an understanding of their discharge medications. Patient counseled by pharmacy billing adjudicator, Mallorie.
== END 2020-04-12 12:16 | disposition home or self-care (01) | DRG 872 ==
LOC: ED 17:07 → ICU 20:12 → PCU 04-10 15:53
PROVIDERS: Admitting Provider Hospitalist; Emergency Provider Emergency Medicine; PCP Family Medicine; Visit Provider Internal Medicine
DX: A41.9 Sepsis, unspecified organism (principal); L03.115 Cellulitis of right lower limb; R65.20 Severe sepsis without septic shock; E11.65 Type 2 diabetes mellitus with hyperglycemia; E87.6 Hypokalemia; E83.42 Hypomagnesemia; E11.319 Type 2 diabetes mellitus with unspecified diabetic retinopathy without macular edema; I10 Essential (primary) hypertension; E11.51 Type 2 diabetes mellitus with diabetic peripheral angiopathy without gangrene; Z91.14 Patient's other noncompliance with medication regimen; Z91.19 Patient's noncompliance with other medical treatment and regimen; Z79.4 Long term (current) use of insulin; Z79.899 Other long term (current) drug therapy
CPT/HCPCS: 36415; 71045; 73590; 80048; 80053; 80202; 81001; 82009; 82550; 82962; 83036; 83605; 83735; 85025; 85610; 85730; 87040; 87086; 93005; 93970; 97802; 99285; J7030; J7040; J7050; A4216; J1940; J2405

== ENCOUNTER 2021-06-28 00:21 | Inpatient (IN) | payer BC, SELFPAY ==
[2021-06-28] VITALS (17 sets, daily range): BP systolic 139–156; BP diastolic 67–98; PULSE 85–120; RESP 16–25; TEMP 25–38.5; O2SAT 80–97; BMI 39.4; BMI 38.7
--- NOTE | 2021-06-28 00:39 | CT_ITS ---
STUDY: CTA CHEST REASON FOR EXAM: Male, 50 years old. Chills, fever, nausea, vomiting, Covid positive. RADIATION DOSAGE (If Supplied By Facility): CTDIvol = ( 13.85 ) mGy, DLP = ( 466.93 ) mGycm TECHNIQUE: The examination was performed with the intravenous administration of 100 mL Isovue-370. Post-processing of the angiographic images was performed, with multiplanar reformation and maximum intensity projections.. Individualized dose optimization techniques were used for this CT. COMPARISON: Chest x-ray April 09, 2020. FINDINGS: Normal enhancement of the main pulmonary artery and right and left pulmonary arteries. Normal enhancement of the bilateral peripheral pulmonary arteries. There is no demonstrated pulmonary embolism. Normal thoracic aorta and visualized great vessels. There is no demonstrated aortic dissection. Normal heart and pericardium. Mediastinal lymph nodes the largest precarinal measuring 1.9 x 1.3 cm. The majority of the lymph nodes are subcentimeter in size. Normal hilar regions. Enlarged bilateral axillary lymph nodes containing fat compatible with reactive lymph nodes. Normal visualized trachea and bronchi. Diffuse primarily peripheral groundglass opacities bilaterally. No effusions. No pneumothorax. Normal pleura. Normal chest wall structures. Normal osseous structures. Normal visualized upper abdomen. CT/CTA Chest W/WO Contrast IMPRESSION: No pulmonary embolus or thoracic aortic dissection. Bilateral multifocal pneumonia suggestive of viral pneumonia. Mild mediastinal lymphadenopathy. Electronically Signed: Juan Ratliff MD at 2:13 EST , Service support ,
--- NOTE | 2021-06-28 00:39 | EKG12_ITS ---
Test Reason : COLD S/X Blood Pressure : / mmHG Vent. Rate : 111 BPM Atrial Rate : 111 BPM P-R Int : 156 ms QRS Dur : 086 ms QT Int : 334 ms P-R-T Axes : 042 047 006 degrees QTc Int : 454 ms Sinus tachycardia T wave abnormality, consider inferior ischemia Abnormal ECG Confirmed by SUSAN EUGENE, LUCRECIA ([id number]), features editor SHILA EDWARD ([id number]) on 06/28/2021 2:00:36 P M Referred By: Confirmed By:MARCK DAVIS MD
--- NOTE | 2021-06-28 00:43 | ED.VIS.DYS ---
HPI History of Present Illness Chief Complaint: Cold Sx Informant: patient Narrative Narrative: 50-year-old male with a history of diabetes hypertension hypercholesterolemia and hypothyroidism presents the emergency room on day 6 of COVID-19 infection. Patient states that he became ill last Thursday after returning home from a business trip to [place]. He states he was vaccinated with the Laci & Laci vaccine several months ago. Patient states that he began to experience fatigue and has subsequently developed cough dyspnea headaches fevers myalgias nausea and mild diarrhea. He was found to be hypoxic at 80% on room air while at rest [facility] Medical History (Updated 06/28/21 @ 02:[address] Uziel Thomas DO) Diabetes mellitus type 2 in obese GERD (gastroesophageal reflux disease) HLD (hyperlipidemia) HTN (hypertension) Hypothyroidism Morbid obesity Pneumonia due to COVID-19 virus Home Medications atorvastatin 10 mg PO QHS 06/28/21 [History Last Taken Unknown] xqsosbiokthbjev-lnotputlw-TD 10 ml PO Q6H 06/28/21 [History Last Taken Unknown] furosemide 40 mg PO BID 06/28/21 [History Last Taken Unknown] insulin lispro 150 unit CONTINUOUS SUBCUTANEOUS INFUSION DAILY 06/28/21 [History Last Taken Unknown] levothyroxine 175 mcg PO DAILY 06/28/21 [History Last Taken Unknown] lisinopril 20 mg PO DAILY 06/28/21 [History Last Taken Unknown] omeprazole 20 mg PO DAILY 06/28/21 [History Last Taken Unknown] Allergy/AdvReac Type Severity Reaction Status Date / Time metformin Allergy PT UNSURE Verified 06/28/21 00:28 OF REACTION Family History Mother Diabetes Hypertension Parkinsons disease Hemophilia Father Hypertension Cancer Hx Skin CA. Lung disease Myasthenia gravis Surgical History Status post hip surgery Social History household members: spouse Smoking Status: Never smoker alcohol intake: current alcohol intake frequency: holidays/special occasions only substance use type: does not use ROS ROS ED Constitutional Constitutional ED: Reports chills, fever(s) and sweats; Denies weight loss Eyes Eyes: Denies change in vision or diplopia ENT ENT ED: Reports rhinorrhea; Denies ear pain or sore throat Cardiovascular Cardiovascular: Denies chest pain, orthopnea, palpitations or racing heartbeat Respiratory/Chest Respiratory/Chest: Reports cough, dyspnea and dyspnea on exertion; Denies orthopnea Gastrointestinal Gastrointestinal: Reports diarrhea and nausea; Denies abdominal pain or vomiting Genitourinary Genitourinary ED: Denies dysuria, hematuria or urinary frequency Musculoskeletal Musculoskeletal: Reports myalgias; Denies arthralgias Integumentary Denies abscess or rash Neurologic Neurologic: Reports headache(s); Denies weakness Psychiatric Psychiatric: Denies anxiety, depression, suicidal ideation or suicidal thoughts Endocrine Endocrinology: Denies polydipsia, polyphagia or polyuria Allergic/Immunologic Allergic/Immunologic ED: Denies mouth swelling, tongue swelling or urticaria EXAM Physical Exam Const Vital Signs: 06/28/21 00:21 06/28/21 00:24 06/28/21 00:28 Temperature 97.6 F L 97.6 F L Temperature Source Temporal Temporal Pulse Rate 120 H 120 H Respiratory Rate 24 H 24 H Respiratory Effort Short of Breath Blood Pressure 156/68 H 156/68 H Blood Pressure Mean 97 97 Pulse Ox 80 80 Oxygen Delivery Method Room Air Room Air Oxygen Flow Rate (L/min) 06/28/21 00:57 06/28/21 01:24 06/28/21 02:00 Temperature 97 F L 77 F L Temperature Source Temporal Temporal Pulse Rate 109 H 107 H Respiratory Rate 16 20 H Respiratory Effort Blood Pressure 139/67 H 155/76 H Blood Pressure Mean 91 102 Pulse Ox 96 97 Oxygen Delivery Method Nasal Cannula Nasal Cannula Oxygen Flow Rate (L/min) 4 Positive well nourished, well developed and obese General Appearance ED: well developed Nutritional Appearance: obese HEENT Reports normocephalic, head/scalp atraumatic, TM's clear and moist mucous membranes atraumatic Tympanic Membrane ED: Yes TM's clear Eyes PERRL and EOMs intact bilaterally Neck no lymphadenopathy, supple and no JVD Resp normal respiratory effort and clear to auscultation bilaterally Cardio regular rhythm and no murmurs Rate: tachycardic GI normal to inspection, nondistended, normoactive bowel sounds and non-tender Auscultation: normoactive bowel sounds Palpation: soft; Negative for mass Back/Spine no CVA tenderness, normal ROM and normal to inspection Extremity normal to inspection General Extremety ED: Negative for edema General Extremity: Negative for edema Neuro oriented x3 and CN's II-XII intact bilaterally Sensorium / Orientation: alert Motor Exam: strength 5/5 throughout Psych mental status grossly normal Mood & Affect: Negative for depressed or tearful Skin no rashes or lesions noted and no wounds Rashes: no rashes MDM MDM MDM Narrative Medical decision making narrative: CTA of the chest does not demonstrate any pulmonary embolism but does demonstrate multifocal areas of pneumonitis. Creatinine is elevated off baseline at 1.45. Patient received a dose of Decadron. He is currently requiring 3-1/2 L nasal cannula at rest. Plan will be admission into the hospital. Lab Data Attestation: I reviewed the patient's lab results. Labs: Laboratory Results - last 24 hr 06/28/21 06/28/21 06/28/21 00:42 00:42 00:42 WBC 4.1 L RBC 5.26 Hgb 13.6 Hct 42.5 MCV 80.8 MCH 25.9 L MCHC 32.0 RDW Std Deviation 37.9 RDW Coeff of Paul 12.9 Plt Count 164 MPV 10.7 Immature Gran % (Auto) 0.500 Neut % (Auto) 77.7 H Lymph % (Auto) 15.9 L [place] % (Auto) 5.9 Eos % (Auto) 0.0 Baso % (Auto) 0.0 Absolute Neuts (auto) 3.2 Absolute Lymphs (auto) 0.65 L Nucleated RBC % 0 Fibrinogen 536 H D-Dimer Quant (PE/DVT) 0.70 H* Sodium 134 L Potassium 3.4 L Chloride 99 Carbon Dioxide 30.0 Anion Gap 5 BUN 17 Creatinine 1.45 H Estim Creat Clear Calc 61.53 Est GFR (MDRD) Af Amer 66 Est GFR (MDRD) Non-Af 54 L BUN/Creatinine Ratio 11.7 Glucose 275 H Lactic Acid Calcium 7.5 L Total Bilirubin 0.50 AST 38 H ALT 26 Alkaline Phosphatase 69 Lactate Dehydrogenase 308 H Total Creatine Kinase 612 H Troponin I High Sens 30 C-React Prot Ext Range 95.90 H B-Natriuretic Peptide Total Protein 6.9 Albumin 2.8 L Globulin 4.1 Albumin/Globulin Ratio 0.7 L Procalcitonin 06/28/21 06/28/21 06/28/21 00:42 00:42 00:42 WBC RBC Hgb Hct MCV MCH MCHC RDW Std Deviation RDW Coeff of Paul Plt Count MPV Immature Gran % (Auto) Neut % (Auto) Lymph % (Auto) [place] % (Auto) Eos % (Auto) Baso % (Auto) Absolute Neuts (auto) Absolute Lymphs (auto) Nucleated RBC % Fibrinogen D-Dimer Quant (PE/DVT) Sodium Potassium Chloride Carbon Dioxide Anion Gap BUN Creatinine Estim Creat Clear Calc Est GFR (MDRD) Af Amer Est GFR (MDRD) Non-Af BUN/Creatinine Ratio Glucose Lactic Acid 0.9 Calcium Total Bilirubin AST ALT Alkaline Phosphatase Lactate Dehydrogenase Total Creatine Kinase Troponin I High Sens C-React Prot Ext Range B-Natriuretic Peptide 35.6 Total Protein Albumin Globulin Albumin/Globulin Ratio Procalcitonin 0.40 H Radiography Diagnostic Testing: Clinical Impression(s) from Imaging Studies Chest CTA 06/28/21 00:39 IMPRESSION: No pulmonary embolus or thoracic aortic dissection. Bilateral multifocal pneumonia suggestive of viral pneumonia. Mild mediastinal lymphadenopathy. Electronically Signed: Juan Ratliff MD at 2:13 EST , Service support , EKG Initial EKG: Attestation: I personally reviewed and interpreted this EKG as follows: Comments: Sinus tachycardia with a ventricular rate of 111 bpm Discharge Plan Dx/Rx/DC Orders Clinical Impression: COVID-19, Acute hypoxemic respiratory failure due to COVID-19, CHAPARRO (acute kidney injury), Diabetes Disposition Disposition: Acute Care Hospital [facility]
[2021-06-28] MEDS: dexAMETHasone 10 MG/ML Vial 6 MG IV (00:59)
[2021-06-28 01:04] LABS: Absolute Lymphocyte Count 0.65 X10^3/uL (0.83-4.51); Absolute Neutrophil Count 3.2 X10^3/uL (2.0-7.7); Hematocrit 42.5 % (40-54); Hemoglobin 13.6 g/dL (13.0-16.5); Lymphocyte # 0.65 X10^3/ul (0.83-4.51); Lymphocyte % 15.9 % (19-41); Mean Corpuscular Hgb 25.9 pg (27.0-32.0); Mean Corpuscular Volume 80.8 fL (80-94); Mean Platelet Vol. 10.7 fl (6.2-12.0); Monocyte# 0.24 X10^3/uL; Monocyte% 5.9 % (0-10); NRBC Flagged by Analyzer 0 % (0-5); Neutrophil # 3.19 X10^3/uL (2.7-7.7); Neutrophil % 77.7 % (47-70); Platelet Count 164 K/mm3 (150-450); RBC Distribution Width CV 12.9 % (11.6-14.6); RBC Distribution Width SD 37.9 fl (35.1-43.9); Red Blood Count 5.26 M/mm3 (4.6-6.2); White Blood Count 4.1 K/mm3 (4.4-11.0)
[2021-06-28 01:15] LABS: Fibrinogen 536 mg/dl (203-444)
[2021-06-28 01:17] LABS: Lactic Acid 0.9 mmol/L (0.4-1.9)
[2021-06-28 01:24] LABS: ALB/GLOB Ratio 0.7 RATIO (0.9-2.4); AST(SGOT) 38 U/L (15-37); Alanine Aminotransfer ALT/SGPT 26 U/L (16-61); Albumin, Serum 2.8 g/dL (3.2-5.0); Alkaline Phosphatase 69 U/L (45-117); Anion Gap 5 (5-15); BUN 17 mg/dL (7-18); BUN/Creat Ratio 11.7 RATIO (10-20); CPK Total, Creatine Kinase 612 U/L (39-308); Calcium,Total 7.5 mg/dL (8.5-10.1); Chloride 99 mmol/L (98-107); Creatinine, Serum 1.45 mg/dL (0.70-1.30); EST Glomerular Filtration Rate 54 mL/min (>60); Est Glom Filt Rate - Afr Amer 66 mL/min (>60); Estimated Creatinine Clearance 61.53 ml/min; Globulin 4.1 g/dL (2.2-4.2); Glucose 275 mg/dL (74-106); LDH 308 U/L (87-241); Potassium 3.4 mmol/L (3.5-5.1); Protein, Total 6.9 g/dL (6.4-8.2); Sodium Level 134 mmol/L (136-145); Troponin-I HS 30 pg/mL (3.0-78.0)
[2021-06-28 01:25] LABS: BNP,B-Type NATRIURETIC PEPTIDE 35.6 pg/mL (0-100)
--- NOTE | 2021-06-28 02:17 | PCM.HP.STD ---
HPI - General General Date of Admission: 06/28/21 Date of Service: 06/28/21 Chief Complaint: COVID, worsening symptoms, hypoxia. HPI Narrative The patient is a 50 y/o M w/ PMHx: HTN, HLD, GERD, Hypothyroidism, Diabetes mellitus type II, Morbid Obesity who presents to the [facility] ED on 06/28/21 with history of onset COVID type symptoms starting 06/22/21 upon returning from a business trip in [place] with positive COVID testing on 06/23/21 with reported history of COVID-19 prior vaccination with J&J several months prior with no recent booster with fever, chills, headaches, body aches, nausea, vomiting, diarrhea, cough and dyspnea progressively worsening with difficulty keeping appropriate oral intake secondary to symptoms with 06/27/2021 evaluation for monoclonal antibody treatment per review of records which is yet to be set up. The patient's is also ill and was vaccinated with J+J vaccine but no recent booster. She was evaluated the same day in the ED with intractable nausea, diarrhea with hypoxia 93% on RA not requiring oxygen supplementation of note. The patient reports he had been very active but following thyroidectomy had gained notable weight. Work-up in the ED included T 97.6, heart rate 120, BP 156/68, respiratory rate 24, 80% on room air initially--> 96% on 4 L nasal cannula, CBC with WBC 4.1, hemoglobin 13.6, platelet 164 with lymphopenia, lactic acid 0.9, fibrinogen 536, D-dimer 0.70 CMP with sodium 134, potassium 3.4, BUN/creatinine 17/1.45, glucose 275, AST/ALT 38/26, LDH 308, TCK 612, troponin 30, CRP 95.9, BNP 35.6, procalcitonin 0.40, blood culture x2 pending per ED, EKG was sinus tachycardia with no acute evidence of ischemia, CTPA with no evidence of pulmonary embolus or thoracic aortic dissection, bilateral multifocal pneumonia consistent with Covid pneumonia, mild mediastinal lymphadenopathy. In the ED patient ministered Decadron 6 mg IV x1.s [facility] Medical History (Updated 06/28/21 @ 02:[address] Uziel Thomas, DO) Diabetes mellitus type 2 in obese GERD (gastroesophageal reflux disease) HLD (hyperlipidemia) HTN (hypertension) Hypothyroidism Morbid obesity Pneumonia due to COVID-19 virus Home Medications atorvastatin 10 mg PO QHS 06/28/21 [History Last Taken Unknown] jjbbaaypkyykrzb-dixubrypp-JF 10 ml PO Q6H 06/28/21 [History Last Taken Unknown] furosemide 40 mg PO BID 06/28/21 [History Last Taken Unknown] insulin lispro 150 unit CONTINUOUS SUBCUTANEOUS INFUSION DAILY 06/28/21 [History Last Taken Unknown] levothyroxine 175 mcg PO DAILY 06/28/21 [History Last Taken Unknown] lisinopril 20 mg PO DAILY 06/28/21 [History Last Taken Unknown] omeprazole 20 mg PO DAILY 06/28/21 [History Last Taken Unknown] Allergy/AdvReac Type Severity Reaction Status Date / Time metformin Allergy PT UNSURE Verified 06/28/21 00:28 OF REACTION Family History Mother Diabetes Hypertension Parkinsons disease Hemophilia Father Hypertension Cancer Hx Skin CA. Lung disease Myasthenia gravis Surgical History (Updated 06/28/21 @ 03:[address] Sahra Gallego MD) S/P thyroidectomy Status post hip surgery Social History household members: spouse Smoking Status: Never smoker alcohol intake: current alcohol intake frequency: holidays/special occasions only substance use type: does not use ROS ROS Narrative Admission Review of Systems: CONSTITUTIONAL: No weight loss, + fever, chills, weakness or fatigue. HEENT: + Headache. Eyes: No visual loss, blurred vision, double vision or yellow sclerae. Ears, Nose, Throat: No hearing loss, sneezing. SKIN: No rash or itching, lesions, wounds. CARDIOVASCULAR: No chest pain, chest pressure or chest discomfort, palpitations, edema, orthopnea, syncopal events. RESPIRATORY: + shortness of breath, cough, No marked sputum, wheezing, hemoptysis. GASTROINTESTINAL: + anorexia, nausea, vomiting, diarrhea, No abdominal pain, melena, BRBPR. GENITOURINARY: No dysuria, frequency, urgency or retention. NEUROLOGICAL: + headache, No dizziness, syncope, paralysis, ataxia, numbness or tingling in the extremities, focal weakness, change in bowel or bladder control, seizure. MUSCULOSKELETAL: + muscle, back pain, joint pain or stiffness. HEMATOLOGIC: No anemia, bleeding or bruising. LYMPHATICS: No enlarged nodes. No history of splenectomy. PSYCHIATRIC: No history of depression or anxiety. ENDOCRINOLOGIC: No reports of sweating, cold or heat intolerance. No polyuria or polydipsia. ALLERGIES: No history of asthma, hives, eczema or rhinitis. Vital Signs Vital Signs Vital Signs: 06/28/21 00:21 06/28/21 00:24 06/28/21 00:28 Temperature 97.6 F L 97.6 F L Temperature Source Temporal Temporal Pulse Rate 120 H 120 H Respiratory Rate 24 H 24 H Respiratory Effort Short of Breath Blood Pressure 156/68 H 156/68 H Blood Pressure Mean 97 97 Pulse Ox 80 80 Oxygen Delivery Method Room Air Room Air Oxygen Flow Rate (L/min) 06/28/21 00:57 06/28/21 01:24 06/28/21 02:00 Temperature 97 F L 77 F L Temperature Source Temporal Temporal Pulse Rate 109 H 107 H Respiratory Rate 16 20 H Respiratory Effort Blood Pressure 139/67 H 155/76 H Blood Pressure Mean 91 102 Pulse Ox 96 97 Oxygen Delivery Method Nasal Cannula Nasal Cannula Oxygen Flow Rate (L/min) 4 Weight Weight: 274 lb 7.608 oz Body Mass Index (BMI) 39.4 Physical Exam Narrative Physical Examination: General: Awake, alert, oriented x 3 and cooperative, seated upright in the ED bed, fatigued and ill-appearing, mildly increased respiratory rate. Skin: Normal color, normal turgor, no icterus, no cyanosis. HEENT: AT/NC, EOMI, PERRLA, moderately dry MM, no carotid bruits or JVD noted. Lungs: Diffusely diminished, greater bases, increased respiratory rate, no rales, ronchi or wheezing. Heart: Tachycardic with regular rhythm; no gallop, rub audible. Abdomen: Soft, morbidly obese, no obvious TTP, unable to discern distention given habitus, distant hyperactive bowel sounds, unable to discern HSM secondary to habitus. Extremities: No cyanosis, clubbing, or edema. Neurological: Patient awake, alert, oriented as noted, cognitive function intact; pupils equally reactive to light and accommodation, cranial nerves II-XII grossly normal, moving all 4 extremities, no focal deficits, strength severely global decrease secondary to acute presentation. Psychiatric: Affect appears fatigued, ill-appearing, respiratory compromise improving since initial ED presentation, no acute evidence of depressive or anxiety feelings. Results Lab / Micro Data Result Diagrams: 06/28/21 00:42 06/28/21 00:42 Labs: Laboratory Results - last 24 hr 06/28/21 00:42: WBC 4.1 L, RBC 5.26, Hgb 13.6, Hct 42.5, MCV 80.8, MCH 25.9 L, MCHC 32.0, RDW Std Deviation 37.9, RDW Coeff of Paul 12.9, Plt Count 164, MPV 10.7, Immature Gran % (Auto) 0.500, Neut % (Auto) 77.7 H, Lymph % (Auto) 15.9 L, [place] % (Auto) 5.9, Eos % (Auto) 0.0, Baso % (Auto) 0.0, Absolute Neuts (auto) 3.2, Absolute Lymphs (auto) 0.65 L, Nucleated RBC % 0 06/28/21 00:42: Fibrinogen 536 H, D-Dimer Quant (PE/DVT) 0.70 H* 06/28/21 00:42: Sodium 134 L, Potassium 3.4 L, Chloride 99, Carbon Dioxide 30.0, Anion Gap 5, BUN 17, Creatinine 1.45 H, Estim Creat Clear Calc 61.53, Est GFR (MDRD) Af Amer 66, Est GFR (MDRD) Non-Af 54 L, BUN/Creatinine Ratio 11.7, Glucose 275 H, Calcium 7.5 L, Total Bilirubin 0.50, AST 38 H, ALT 26, Alkaline Phosphatase 69, Lactate Dehydrogenase 308 H, Total Creatine Kinase 612 H, Troponin I High Sens 30, C-React Prot Ext Range 95.90 H, Total Protein 6.9, Albumin 2.8 L, Globulin 4.1, Albumin/Globulin Ratio 0.7 L 06/28/21 00:42: Lactic Acid 0.9 06/28/21 00:42: B-Natriuretic Peptide 35.6 06/28/21 00:42: Procalcitonin 0.40 H Radiology Impression Chest CTA 06/28/21 00:39 IMPRESSION: No pulmonary embolus or thoracic aortic dissection. Bilateral multifocal pneumonia suggestive of viral pneumonia. Mild mediastinal lymphadenopathy. Electronically Signed: Juan Ratliff MD at 2:13 EST , Service support , Assessment & Plan Assessment/Plan (1) Acute hypoxemic respiratory failure due to COVID-19: (2) Pneumonia due to COVID-19 virus: PLAN: The patient is a 50 y/o M w/ PMHx: HTN, HLD, GERD, Hypothyroidism, Diabetes mellitus type II, Morbid Obesity who presents to the [facility] ED on 06/28/21 with history of onset COVID type symptoms starting 06/22/21 upon returning from a business trip in [place] with positive COVID testing on 06/23/21 with reported history of COVID-19 prior vaccination with J&J several months prior with no recent booster with fever, chills, headaches, body aches, nausea, vomiting, diarrhea, cough and dyspnea progressively worsening with difficulty keeping appropriate oral intake secondary to symptoms. 1. Acute Hypoxic Respiratory Failure secondary to Acute Bilateral Pneumonia secondary to Acute Viral Syndrome, COVID-19: Will admit to the PCU, maintain on COVID precautions, will maintain on oxygen with wean as tolerated to room air, PRN albuterol, HOB, IS parameters w/ pending sputum cultures, respiratory viral panel and urine antigens, ED initiated Covid panel with fibrinogen, D-dimer, LDH, T CK, CRP, BNP as well as procalcitonin, will add Ferritin, continue supportive care including q 2 hour turning including prone given no prone bed availability and judicious hydration, closely monitor for worsening status for ARDS and multiorgan failure, will initiate and continue IV decadron x 10 doses, given presentation will also initiate IV remdesivir but defer to discretion of Infectious disease. 2. Acute kidney injury: Secondary to acute presentation #1 and recent poor oral intake as well as GI losses. Admission BUN/Cr 17/1.45, prior baseline creatinine noted to be 0.6. Will hydrate judiciously given #1, hold nephrotoxic medications and repeat CMP in AM. 3. Hypokalemia: Admission K+ 3.4, magnesium level requested, supplementation given, repeat level in AM. 4. Diabetes mellitus type II with hyperglycemia: Continue patient subcu daily infusion with expectation of likely hyperglycemia given steroid usage as noted above with accu checks with ISS per discussion with patient above his basal, ADA diet. 5. Hypertension: Temporarily hold Lasix, lisinopril given CHAPRARO, immediately add back once improved especially given #1, PRN hydralazine. 6. Hyperlipidemia: We will continue patient on statin therapy. 7. Hypothyroidism: s/p thyroidectomy, will continue patient home Synthroid regimen. 8. GERD: We will maintain on home PPI. 9. Morbid Obesity: Weight loss and lifestyle changes encouraged. 10. DVT prophylaxis: SCDs, Lovenox. 11. CODE status: Given acute respiratory failure with COVID PNA, discussed CODE status at length including difference between FULL code, DNR-CCA and DNR-CC status. Following discussions about the differences in these status, requested Full Code status. Amenable to airvo and BIPAP if necessary. Advanced Care Planning Face to Face Time: 16 minutes. Charges/Coding Visit Charges Inpatient E&M: 53674 Init Hosp L3 Procedures Hospitalists Procedures: 94005 Advncd Care Plan 30 Min
[2021-06-28 02:41] LABS: Ferritin 146 ng/mL (26-388); Magnesium 2.2 mg/dL (1.6-2.6)
--- NOTE | 2021-06-28 03:49 | PCS.PANDOC ---
PANDEMIC DOCUMENTATION INITIATED: Date: 03/25/2021 Time: 190
[2021-06-28] MEDS: 0.9% Saline Lock 10 ML Syringe IV ×2 (03:57→22:40)
[2021-06-28] MEDS: 0.9% Normal Saline 1,000 ML 125 ML IV (03:59)
[2021-06-28] MEDS: Potassium Chloride Oral Tablet 20 MEQ 40 MEQ PO (04:19)
[2021-06-28] MEDS: Acetaminophen 325 MG Tablet 650 MG PO ×3 (06:02→22:34)
[2021-06-28] MEDS: Levothyroxine 175 MCG Tablet PO (06:02)
[2021-06-28 07:30] LABS: Absolute Lymphocyte Count 0.46 X10^3/uL (0.83-4.51); Absolute Neutrophil Count 2.9 X10^3/uL (2.0-7.7); Basophil# 0.01 X10^3/uL; Basophil% 0.3 % (0-1); Hemoglobin 13.5 g/dL (13.0-16.5); Lymphocyte # 0.46 X10^3/ul (0.83-4.51); Lymphocyte % 13.1 % (19-41); Mean Corp Hgb Conc 32.1 g/dL (32-36); Mean Corpuscular Hgb 25.8 pg (27.0-32.0); Mean Corpuscular Volume 80.3 fL (80-94); Mean Platelet Vol. 10.2 fl (6.2-12.0); Monocyte# 0.13 X10^3/uL; Monocyte% 3.7 % (0-10); NRBC Flagged by Analyzer 0 % (0-5); Neutrophil # 2.91 X10^3/uL (2.7-7.7); Neutrophil % 82.6 % (47-70); POSITIVE DIFFERENTIAL YES; Platelet Count 155 K/mm3 (150-450); RBC Distribution Width SD 37.3 fl (35.1-43.9); Red Blood Count 5.23 M/mm3 (4.6-6.2); White Blood Count 3.5 K/mm3 (4.4-11.0)
[2021-06-28 07:33] LABS: Differential Indicated SCAN CRITERIA MET
[2021-06-28 07:54] LABS: ALB/GLOB Ratio 0.7 RATIO (0.9-2.4); AST(SGOT) 37 U/L (15-37); Alanine Aminotransfer ALT/SGPT 25 U/L (16-61); Albumin, Serum 2.6 g/dL (3.2-5.0); Alkaline Phosphatase 63 U/L (45-117); Anion Gap 6 (5-15); BUN 18 mg/dL (7-18); BUN/Creat Ratio 12.5 RATIO (10-20); Calcium,Total 7.9 mg/dL (8.5-10.1); Chloride 105 mmol/L (98-107); Creatinine, Serum 1.44 mg/dL (0.70-1.30); EST Glomerular Filtration Rate 55 mL/min (>60); Est Glom Filt Rate - Afr Amer 66 mL/min (>60); Estimated Creatinine Clearance 61.96 ml/min; Globulin 3.9 g/dL (2.2-4.2); Glucose 168 mg/dL (74-106); Potassium 3.5 mmol/L (3.5-5.1); Protein, Total 6.5 g/dL (6.4-8.2); Sodium Level 139 mmol/L (136-145)
[2021-06-28 08:19] LABS: Differential Comment SCANNED; Platelet Estimate ADEQUATE (ADEQ)
[2021-06-28] MEDS: Pantoprazole Sodium 20 MG Tablet PO (09:46)
[2021-06-28] MEDS: Enoxaparin 40 MG/0.4 ML Syringe SC ×2 (09:46→22:33)
--- NOTE | 2021-06-28 12:18 | PN.HOSP_ITS ---
Subjective Subjective Feeling better. Has been ill for about 6 days. Objective Data Objective Data Vital Signs: Vital Signs Temp Pulse Resp BP Pulse Ox 36.7 C 85 20 H 153/80 H 96 06/28/21 09:44 06/28/21 09:44 06/28/21 09:44 06/28/21 09:44 06/28/21 09:44 Oxygen Flow Rate (L/min) 3.5 Oxygen Delivery Method Nasal Cannula Weight: 122.4 kg Body Mass Index (BMI) 38.7 Intake & Output: Intake and Output for Last 24 Hours 06/26/21 06/27/21 06/28/21 23:59 23:59 23:59 Intake Total 250 / 250 Balance 250 / 250 Medical Nutrition Assessment Dietitian: Malnutrition Criteria Met Start: 06/28/21 11:33 Freq: Status: Active Protocol: Document 06/28/21 11:33 IRIS (Rec: 06/28/21 11:33 SLA [id number]) Nutrition Malnutrition Evidence of Malnutrition Exists Yes Malnutrition (severe): Acute Illness/Injury Evidenced By Suboptimal Energy Intake ( Severe),Weight Loss (Severe) Clinical Problem Altered Nutrient-Related Laboratory Values Etiology related to diabetes and steroid administration Signs/Symptoms as evidenced by gluc 168 Status Active Problem Acute Disease or Injury Related Malnutrition Etiology related to acute illness and inability to consume adequate nutrition to meet pt est nutritional needs Signs/Symptoms as evidenced by po intake <50% x >5 days and 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 Recommendation Dietitian Recommendations/Changes Will change diet to Consistent CHO/ Cardiac Will provide 120 ml glucerna shake w/ meals Will adjust ONS at time of follow up as indicated Lab / Micro Data Result Diagrams: 06/28/21 07:15 06/28/21 07:15 Labs: Laboratory Results - last 24 hr 06/28/21 00:42: WBC 4.1 L, RBC 5.26, Hgb 13.6, Hct 42.5, MCV 80.8, MCH 25.9 L, MCHC 32.0, RDW Std Deviation 37.9, RDW Coeff of Paul 12.9, Plt Count 164, MPV 10.7, Immature Gran % (Auto) 0.500, Neut % (Auto) 77.7 H, Lymph % (Auto) 15.9 L, [place] % (Auto) 5.9, Eos % (Auto) 0.0, Baso % (Auto) 0.0, Absolute Neuts (auto) 3.2, Absolute Lymphs (auto) 0.65 L, Nucleated RBC % 0 06/28/21 00:42: Fibrinogen 536 H, D-Dimer Quant (PE/DVT) 0.70 H* 06/28/21 00:42: Sodium 134 L, Potassium 3.4 L, Chloride 99, Carbon Dioxide 30.0, Anion Gap 5, BUN 17, Creatinine 1.45 H, Estim Creat Clear Calc 61.53, Est GFR (MDRD) Af Amer 66, Est GFR (MDRD) Non-Af 54 L, BUN/Creatinine Ratio 11.7, Glucose 275 H, Calcium 7.5 L, Total Bilirubin 0.50, AST 38 H, ALT 26, Alkaline Phosphatase 69, Lactate Dehydrogenase 308 H, Total Creatine Kinase 612 H, Troponin I High Sens 30, C-React Prot Ext Range 95.90 H, Total Protein 6.9, Albumin 2.8 L, Globulin 4.1, Albumin/Globulin Ratio 0.7 L 06/28/21 00:42: Lactic Acid 0.9 06/28/21 00:42: B-Natriuretic Peptide 35.6 06/28/21 00:42: Procalcitonin 0.40 H 06/28/21 01:00: Magnesium 2.2, Ferritin 146 06/28/21 07:15: WBC 3.5 L, RBC 5.23, Hgb 13.5, Hct 42.0, MCV 80.3, MCH 25.8 L, MCHC 32.1, RDW Std Deviation 37.3, RDW Coeff of Paul 13.0, Plt Count 155, MPV 10.2, Immature Gran % (Auto) 0.300, Neut % (Auto) 82.6 H, Lymph % (Auto) 13.1 L, [place] % (Auto) 3.7, Eos % (Auto) 0.0, Baso % (Auto) 0.3, Absolute Neuts (auto) 2.9, Absolute Lymphs (auto) 0.46 L, Nucleated RBC % 0, Differential Comment SCANNED, Diff Path Review December, Platelet Estimate ADEQUATE 06/28/21 07:15: Sodium 139, Potassium 3.5, Chloride 105, Carbon Dioxide 28.0, Anion Gap 6, BUN 18, Creatinine 1.44 H, Estim Creat Clear Calc 61.96, Est GFR (MDRD) Af Amer 66, Est GFR (MDRD) Non-Af 55 L, BUN/Creatinine Ratio 12.5, G lucose 168 H, Calcium 7.9 L, Total Bilirubin 0.40, AST 37, ALT 25, Alkaline Phosphatase 63, Total Protein 6.5, Albumin 2.6 L, Globulin 3.9, Albumin/Globulin Ratio 0.7 L Micro: Microbiology 06/28/21 04:09 Sputum, Expectorated/Coughed Gram Stain - Final Radiography Diagnostic Testing: Radiology Impression Chest CTA 06/28/21 00:39 IMPRESSION: No pulmonary embolus or thoracic aortic dissection. Bilateral multifocal pneumonia suggestive of viral pneumonia. Mild mediastinal lymphadenopathy. Electronically Signed: Juan Ratliff MD at 2:13 EST , Service support , Physical Exam Const alert Constitutional Narrative: up in chair on oxygen. no respiratory distress. no conversational dyspnea. HEENT head/scalp atraumatic and moist oral mucous membranes Head and Scalp: normocephalic Resp normal respiratory effort, no retractions, no use of accessory muscles and clear to auscultation bilaterally Cardio regular rate, regular rhythm, S1 normal heart sound and S2 normal heart sound GI normal to inspection, nondistended, normoactive bowel sounds, soft to palpation, non-tender and non-distended Assessment & Plan Assessment/Plan (1) Acute hypoxemic respiratory failure due to COVID-19: (2) COVID-19: (3) CHAPARRO (acute kidney injury): PLAN: 1. acute hypoxic respiratory failure * 2/2 COVID 19 pneumonia. * CT reviewed and showed bilateral infiltrative process * wean oxygen as able * check ambulatory pulse ox on discharge 2. Acute COVID 19 * vaccinated w J+J * onset 06/22, will need to quarantine through 07/12 * on dexa and rem-d * not a candidate for baricitinib at this time 3. CHAPARRO * suspected, though may be chronic as last Cr in our system was 2019. * did receive IVF. Hold additional IVF given COVID and resp failure. 4. DM * documented a type II, but on insulin pump * currently stable * verify with pt if type I v II 5. VTE prophylaxis: LMWH Charges/Coding Procedures Hospitalists Procedures: Other Procedure - See Report (non billable rounding as pt admitted after midnight. )
[2021-06-28 14:30] LABS: Pathologist Review Reviewed
--- NOTE | 2021-06-28 15:00 | CASEMGMT ---
RN CM MANAGER TALENT CM spoke w/pt for initial transition planning/care coordination assessment. RN LIZ introduced self and role at [facility]. Pt voices understanding and consents to assessment at this time. Pt is A/O at this time and answers all questions appropriately. Care providers, pharmacy, and demographics verified/updated at this time. COVID testing done @ [facility] in [place] PCP: Dr Tovar Specialists:Dr Rodolfo Noriega-endocrinology in [place] Preferred Pharmacy: [facility] Retail Insurance: [employer] Prescription Benefit: Yes LNOK:, Brandi Living Arrangements: Lives w/ and 13-yr-old dtr in 2-story home. Master bedroom on ground floor. 2 steps to enter home. Independent and dtr both tested + for COVID recently. Dtr recovered well. was seen in ED last PM, but d/c'd home and pt states she is feeling better today. They have several neighbors that are able to bring groceries/supplies if needed. Transportation: Pt states drives self and states no transportation concerns at this time. also drives DME: has a continuous glucose monitor and pump. Does not have pulse ox or Home O2. Recommended to get pulse ox to monitor O2 level. Discussed possible need of Home O2. Reviewed list of local DME companies. Pt does not have a preference. HHC/SNF:No hx of SNF. Had HHC thru [facility] in 2017 after hip surgeries. Declines need for HHC at this time. Pt wishes to return home and states has no concerns with going home at time of discharge. Follow for home oxygen needs and any further discharge planning/needs. Pt voices no further concerns/needs at this time. Advised pt to ask for CM if any further questions/concerns/needs arise. Voices understanding. PLAN: Home w/family support and discharge plans in place. May need Home O2. Green sheet placed on chart w/instructions for Home O2 testing and set-up. Carlos AVITIA RN CM
[2021-06-28] MEDS: Atorvastatin Calcium 10 MG Tablet PO (22:33)
[2021-06-28] MEDS: Mag Hydrox/Al Hydrox/Simeth 30 ML UDC PO (22:38)
[2021-06-29] VITALS (7 sets, daily range): BP systolic 135–154; BP diastolic 64–81; PULSE 86–98; RESP 16–22; TEMP 36.5–38.2; O2SAT 90–94
[2021-06-29] MEDS: Levothyroxine 175 MCG Tablet PO (05:37)
[2021-06-29 06:11] LABS: Absolute Lymphocyte Count 0.88 X10^3/uL (0.83-4.51); Absolute Neutrophil Count 7.7 X10^3/uL (2.0-7.7); Hematocrit 40.1 % (40-54); Hemoglobin 13.1 g/dL (13.0-16.5); Lymphocyte # 0.88 X10^3/ul (0.83-4.51); Lymphocyte % 9.6 % (19-41); Mean Corp Hgb Conc 32.7 g/dL (32-36); Mean Corpuscular Hgb 25.9 pg (27.0-32.0); Mean Corpuscular Volume 79.2 fL (80-94); Mean Platelet Vol. 11.1 fl (6.2-12.0); Monocyte# 0.53 X10^3/uL; Monocyte% 5.8 % (0-10); NRBC Flagged by Analyzer 0 % (0-5); Neutrophil # 7.68 X10^3/uL (2.7-7.7); Neutrophil % 84.2 % (47-70); Platelet Count 194 K/mm3 (150-450); RBC Distribution Width CV 13.2 % (11.6-14.6); RBC Distribution Width SD 37.7 fl (35.1-43.9); Red Blood Count 5.06 M/mm3 (4.6-6.2); White Blood Count 9.1 K/mm3 (4.4-11.0)
[2021-06-29 06:36] LABS: ALB/GLOB Ratio 0.6 RATIO (0.9-2.4); AST(SGOT) 48 U/L (15-37); Alanine Aminotransfer ALT/SGPT 31 U/L (16-61); Albumin, Serum 2.6 g/dL (3.2-5.0); Alkaline Phosphatase 60 U/L (45-117); Anion Gap 7 (5-15); BUN 31 mg/dL (7-18); BUN/Creat Ratio 24.8 RATIO (10-20); Calcium,Total 8.6 mg/dL (8.5-10.1); Chloride 105 mmol/L (98-107); Creatinine, Serum 1.25 mg/dL (0.70-1.30); EST Glomerular Filtration Rate 64 mL/min (>60); Est Glom Filt Rate - Afr Amer 78 mL/min (>60); Estimated Creatinine Clearance 71.38 ml/min; Globulin 4.1 g/dL (2.2-4.2); Glucose 56 mg/dL (74-106); Potassium 3.8 mmol/L (3.5-5.1); Protein, Total 6.7 g/dL (6.4-8.2); Sodium Level 139 mmol/L (136-145)
[2021-06-29] MEDS: 0.9% Saline Lock 10 ML Syringe IV (08:03)
[2021-06-29] MEDS: dexAMETHasone 4 MG/ML Vial 6 MG IV (08:03)
[2021-06-29] MEDS: Enoxaparin 40 MG/0.4 ML Syringe SC (08:04)
[2021-06-29] MEDS: Pantoprazole Sodium 20 MG Tablet PO (08:04)
--- NOTE | 2021-06-29 12:42 | PCM.DC ---
Discharge Instructions Diet Discharge Diet: 1999 Calorie Control Diet Activity Discharge Activity: Return to Normal Activity Dressing / Incision Call your doctor if you observe: Fever of 101 or Higher and Shortness of breath Additional Dressing/Incision Instructions:: Self isolate for at least 20 days since symptoms began 06/22-07/12 AND at least one day (24 hours) have passed since resolution of fever without the use of fever-reducing agents AND improvement of symptoms (e.g., cough, shortness of breath) When around people in the same room, wear a face mask. Individuals also in the room should wear a mask. If possible, use a different bathroom and bedroom. Perform adequate hand hygiene. Avoid sharing dishes, glasses, etc. Follow Up Care Test Results: Test results from this visit will be discussed in further detail at your follow-up appointment, if applicable. Discharge Plan Admission Admit Date/Time: 06/28/21 02:18 Primary Reason for Your Visit: COVID 19 Attending Provider: Jose Allen Primary Care Provider: Higinio Tovar Discharge Orders/Prescriptions Prescriptions: New dexamethasone 6 mg tablet 6 mg PO DAILY Qty: 8 RF: 0 Continued furosemide 40 mg tablet 40 mg PO BID RF: 0 levothyroxine 175 mcg tablet 175 mcg PO DAILY RF: 0 atorvastatin 10 mg tablet 10 mg PO QHS RF: 0 lisinopril 20 mg tablet 20 mg PO DAILY RF: 0 omeprazole 20 mg capsule,delayed release(DR/EC) 20 mg PO DAILY RF: 0 insulin lispro 100 unit/mL solution 150 unit continuous subcutaneous infusion DAILY RF: 0 yyosqqfgjpmzkcc-kqqxxiewe-NC 2-30-10 mg/5 mL syrup 10 ml PO Q6H RF: 0 Referrals / Follow Up: Higinio Tovar MD [Primary Care Provider] - Within 2 Weeks Disposition Disposition (needs filled in before D/C Order can be placed): Home, Self Care
--- NOTE | 2021-06-29 14:39 | PCM.DC.SUM ---
Providers Date of Admission: 06/28/21 Primary Care Physician: Dr. Higinio Tovar MD Reason For Visit: COVID PNA, ACUTE RESPIRATORY FAILURE Diagnosis Discharge Diagnosis (1) Acute hypoxemic respiratory failure due to COVID-19: Status: Acute Code(s): U07.1 - COVID-19; J96.01 - Acute respiratory failure with hypoxia (2) COVID-19: Status: Acute Code(s): U07.1 - COVID-19 (3) CHAPARRO (acute kidney injury): Status: Acute Code(s): N17.9 - Acute kidney failure, unspecified Medications at Discharge Home Medications atorvastatin 10 mg PO QHS 06/28/21 tlyivaognrstxzb-umpvuxurh-NQ 10 ml PO Q6H 06/28/21 furosemide 40 mg PO BID 06/28/21 insulin lispro 150 unit CONTINUOUS SUBCUTANEOUS INFUSION DAILY 06/28/21 levothyroxine 175 mcg PO DAILY 06/28/21 lisinopril 20 mg PO DAILY 06/28/21 omeprazole 20 mg PO DAILY 06/28/21 dexamethasone 6 mg PO DAILY #8 tab 06/29/21 Hospital Course Operations None Procedures None Summary of Care Provided Minutes Spent on Discharge: 28 Hospital Course: 1. acute hypoxic respiratory failure resolved. now on room air 2/ COVID [address] reviewed and showed bilateral infiltrative process wean oxygen as able 2. Acute COVID 19 vaccinated w J+J onset 06/22, will need to quarantine through 07/12 on dexa and rem-d not a candidate for baricitinib at this time 3. CHAPARRO suspected, though may be chronic as last Cr in our system was 2019. did receive IVF. Hold additional IVF given COVID and resp failure. 4. DM verified with pt, he is a type II diabetic. Physical Exam HEENT normocephalic Resp normal respiratory effort, no retractions, no use of accessory muscles and clear to auscultation bilaterally Cardio regular rate, regular rhythm, S1 normal heart sound and S2 normal heart sound GI normal to inspection, nondistended, normoactive bowel sounds Weight / BMI Weight Weight: 122.4 kg Body Mass Index (BMI) 38.7 ABG / Lab / Microbiology Data Result Diagrams: 06/29/21 05:50 06/29/21 05:50 Laboratory: Laboratory Results - last 24 hr 06/29/21 05:50: WBC 9.1, RBC 5.06, Hgb 13.1, Hct 40.1, MCV 79.2 L, MCH 25.9 L, MCHC 32.7, RDW Std Deviation 37.7, RDW Coeff of Paul 13.2, Plt Count 194, MPV 11.1, Immature Gran % (Auto) 0.400, Neut % (Auto) 84.2 H, Lymph % (Auto) 9.6 L, [place] % (Auto) 5.8, Eos % (Auto) 0.0, Baso % (Auto) 0.0, Absolute Neuts (auto) 7.7, Absolute Lymphs (auto) 0.88, Nucleated RBC % 0 06/29/21 05:50: Sodium 139, Potassium 3.8, Chloride 105, Carbon Dioxide 27.0, Anion Gap 7, BUN 31 H, Creatinine 1.25, Estim Creat Clear Calc 71.38, Est GFR (MDRD) Af Amer 78, Est GFR (MDRD) Non-Af 64, BUN/Creatinine Ratio 24.8 H, Glucose 56 L, Calcium 8.6, Total Bilirubin 0.30, AST 48 H, ALT 31, Alkaline Phosphatase 60, Total Protein 6.7, Albumin 2.6 L, Globulin 4.1, Albumin/Globulin Ratio 0.6 L Microbiology: Microbiology 06/28/21 04:09 Sputum, Expectorated/Coughed Gram Stain - Final 06/28/21 04:09 Sputum, Expectorated/Coughed Respiratory Culture - Preliminary Appears to be normal respiratory vesna. Further studies to follow. 06/28/21 17:45 Urine, Clean Catch Legionella Antigen - Final 06/28/21 17:45 Urine, Clean Catch Streptococcus pneumoniae Antigen (M - Final 06/28/21 15:26 Mucosa - Nose Respiratory Panel (PCR) - Final D/C Instructions Discharge Diet: 2000 Calorie Control Diet Call your doctor if you observe: Fever of 101 or Higher and Shortness of breath Additional Dressing/Incision Instructions: Self isolate for at least 20 days since symptoms began 06/22-07/12 AND at least one day (24 hours) have passed since resolution of fever without the use of fever-reducing agents AND improvement of symptoms (e.g., cough, shortness of breath) When around people in the same room, wear a face mask. Individuals also in the room should wear a mask. If possible, use a different bathroom and bedroom. Perform adequate hand hygiene. Avoid sharing dishes, glasses, etc. Meaningful Use Info Meaningful Use Diagnoses (Choose all that apply): None applicable Discharge Plan Admission Admit Date/Time: 06/28/21 02:18 Primary Reason for Your Visit: COVID 19 Attending Provider: Jose Allen Primary Care Provider: Higinio Tovar Discharge Orders/Prescriptions Prescriptions: New dexamethasone 6 mg tablet 6 mg PO DAILY Qty: 8 RF: 0 Continued furosemide 40 mg tablet 40 mg PO BID RF: 0 levothyroxine 175 mcg tablet 175 mcg PO DAILY RF: 0 atorvastatin 10 mg tablet 10 mg PO QHS RF: 0 lisinopril 20 mg tablet 20 mg PO DAILY RF: 0 omeprazole 20 mg capsule,delayed release(DR/EC) 20 mg PO DAILY RF: 0 insulin lispro 100 unit/mL solution 150 unit continuous subcutaneous infusion DAILY RF: 0 mqykiyeshyjafyw-emvnoamrh-JV 2-30-10 mg/5 mL syrup 10 ml PO Q6H RF: 0 Referrals / Follow Up: Higinio Tovar MD [Primary Care Provider] - Within 2 Weeks Disposition Disposition (needs filled in before D/C Order can be placed): Home, Self Care Charges/Coding Visit Charges Inpatient E&M: [id number] Disch Hosp
== END 2021-06-29 14:05 | disposition home or self-care (01) | DRG 177 ==
LOC: ED 02:06 → PCU 07:01
PROVIDERS: Admitting Provider Family Medicine; Emergency Provider Emergency Medicine; PCP Family Medicine
DX: U07.1 COVID-19 (principal); J12.82 Pneumonia due to coronavirus disease 2019; J96.01 Acute respiratory failure with hypoxia; N17.9 Acute kidney failure, unspecified; E44.1 Mild protein-calorie malnutrition; Z68.38 Body mass index [BMI] 38.0-38.9, adult; I10 Essential (primary) hypertension; K21.9 Gastro-esophageal reflux disease without esophagitis; E87.6 Hypokalemia; E11.65 Type 2 diabetes mellitus with hyperglycemia; G20 Parkinson's disease; E66.01 Morbid (severe) obesity due to excess calories; E78.00 Pure hypercholesterolemia, unspecified; E78.5 Hyperlipidemia, unspecified; E03.9 Hypothyroidism, unspecified; Z79.4 Long term (current) use of insulin; Z79.899 Other long term (current) drug therapy
CPT/HCPCS: 36415; 71275; 80053; 82550; 82728; 83605; 83615; 83735; 83880; 84145; 84484; 85025; 85379; 85384; 86140; 87040; 87070; 87205; 87449; 87633; 93005; 97802; 99284; J7030; J7050; Q9967; A4216

== ENCOUNTER 2021-07-01 13:52 | Emergency (ER) | payer BC, SELFPAY ==
[2021-07-01 13:53] VITALS: BP 166/99; PULSE 85; RESP 16; TEMP 36.6; O2SAT 94; BMI 39.9
[2021-07-01 14:42] VITALS: O2SAT 90
[2021-07-01 14:46] VITALS: O2SAT 94
--- NOTE | 2021-07-01 15:15 | EKG12_ITS ---
Test Reason : SOB Blood Pressure : / mmHG Vent. Rate : 083 BPM Atrial Rate : 083 BPM P-R Int : 190 ms QRS Dur : 094 ms QT Int : 378 ms P-R-T Axes : 041 033 -03 degrees QTc Int : 444 ms Normal sinus rhythm Normal ECG Confirmed by NIAM EUGENE, FRIDA ([id number]), photography editor SHILA EDWARD ([id number]) on 07/05/2021 7:22:15 AM Referred By: SANGEETHA Confirmed By:FRIDA HERRING MD
--- NOTE | 2021-07-01 15:15 | RAD_ITS ---
STUDY: X-RAY CHEST REASON FOR EXAM: Male, 50 years old. covid TECHNIQUE: AP COMPARISON: 04/09/2020 FINDINGS: Multifocal infiltrates with features commonly reported with COVID pneumonia. There is no demonstrated pleural abnormality. Normal size heart. Normal mediastinum and frances. Normal visualized pulmonary arteries. Normal visualized aortic arch and descending thoracic aorta. Normal visualized thoracic spine. Normal visualized ribs, clavicles, and shoulders. There is no demonstrated abnormality of the visualized soft tissue structures of the upper abdomen. RAD/Chest 1 View (Portable) IMPRESSION: Multifocal infiltrates with features commonly reported with COVID pneumonia. Electronically Signed: Ej Chambers MD (Brooks) at 16:19 EST , Service support ,
--- NOTE | 2021-07-01 15:17 | ED.VIS.DYS ---
HPI History of Present Illness Chief Complaint: Shortness of Breath Informant: patient Narrative Narrative: Patient represents with hypoxic episode at home. He is on approximately day 9 of Covid symptoms. He likely got this after a business trip to [place]. He did have his Laci & Laci vaccine at the end of March of this year. He was in the hospital. He had CTA that showed no pulmonary embolus. He had this because he was having some small episodes of hemoptysis. This has not been worsening or continuing badly. He generally has been doing okay. He has been eating and drinking. No nausea vomiting or diarrhea although his appetite is a little down. He felt a bit dyspneic today after doing some mild preparation to get ready. He was walking around taking a shower etc. He checked his oxygenation was 79%. He sat still and he said it did come up into the 90s pretty quickly and he felt better. He contacted his physician who recommended he get rechecked again. Other than that episode he states he is overall been doing pretty well. He was wondering if he would need home oxygen. He would prefer not to come back in the hospital because he is overall doing well. [facility] Medical History Diabetes mellitus type 2 in obese GERD (gastroesophageal reflux disease) HLD (hyperlipidemia) HTN (hypertension) Hypertension Hypothyroidism Morbid obesity Non-smoker Pneumonia due to COVID-19 virus Home Medications atorvastatin 10 mg PO QHS 06/28/21 [History Last Taken 06/27/21] cuphypvbejnoyxo-yvuieywjj-GS 10 ml PO Q6H 06/28/21 [History Last Taken 06/27/21] furosemide 40 mg PO BID 06/28/21 [History Last Taken Unknown] insulin lispro 150 unit CONTINUOUS SUBCUTANEOUS INFUSION DAILY 06/28/21 [History Last Taken 06/28/21] levothyroxine 175 mcg PO DAILY 06/28/21 [History Last Taken 06/27/21] lisinopril 20 mg PO DAILY 06/28/21 [History Last Taken 06/27/21] omeprazole 20 mg PO DAILY 06/28/21 [History Last Taken 06/27/21] dexamethasone 6 mg PO DAILY #8 tab 06/29/21 [Rx Last Taken Unknown] Allergy/AdvReac Type Severity Reaction Status Date / Time metformin Allergy PT UNSURE Verified 07/01/21 13:55 OF REACTION Family History Mother Diabetes Hypertension Parkinsons disease Hemophilia Father Hypertension Cancer Hx Skin CA. Lung disease Myasthenia gravis Surgical History S/P thyroidectomy Status post hip surgery Social History household members: spouse Smoking Status: Never smoker alcohol intake: current alcohol intake frequency: holidays/special occasions only substance use type: does not use ROS ROS ED Constitutional Constitutional ED: Reports fever(s) Eyes Eyes: Denies blurry vision ENT ENT ED: Reports rhinorrhea; Denies sore throat Cardiovascular Cardiovascular: Denies chest pain or palpitations Respiratory/Chest Respiratory/Chest: Reports cough and dyspnea; Denies sputum Gastrointestinal Gastrointestinal: Denies abdominal pain, diarrhea, nausea or vomiting Genitourinary Genitourinary ED: Denies dysuria Musculoskeletal Musculoskeletal: Reports myalgias Integumentary Denies rash Neurologic Neurologic: Denies headache(s) Endocrine Endocrinology: Denies polydipsia or polyuria Hematologic/Lymphatic Hematologic/Lymphatic: Denies easy bleeding, easy bruising or lymphadenopathy Allergic/Immunologic Allergic/Immunologic ED: Denies mouth swelling or urticaria EXAM Physical Exam Const Vital Signs: 07/01/21 13:53 07/01/21 14:46 07/01/21 15:35 Temperature 97.8 F Temperature Source Temporal Pulse Rate 85 Respiratory Rate 16 Respiratory Effort Short of Breath Respiratory Depth Normal Respiratory Pattern Normal Blood Pressure 166/99 H Blood Pressure Mean 121 Pulse Ox 94 93 Oxygen Delivery Method Room Air Nasal Cannula Nasal Cannula Oxygen Flow Rate (L/min) 2 2 07/01/21 16:57 Temperature Temperature Source Pulse Rate 84 Respiratory Rate 16 Respiratory Effort Respiratory Depth Respiratory Pattern Blood Pressure Blood Pressure Mean Pulse Ox 93 Oxygen Delivery Method Nasal Cannula Oxygen Flow Rate (L/min) 2 Patient is on 2 L with 96% sat at this time. He looks very good and comfortable. He is nontoxic. Positive well nourished and well developed General Appearance ED: well developed and NAD HEENT Reports moist mucous membranes Eyes General Eye ED: Negative for pale conjunctiva or scleral icterus Neck no meningeal signs and no JVD Resp normal respiratory effort Resp Narrative: Patient has a few quiet rhonchi that are scattered. No noted rales. No wheezing. No pain with a deep breath. Auscultation: rhonchi; Negative for rales, wheezes or diminished lung sounds Cardio regular rate and regular rhythm GI non-tender and non-distended Palpation: soft Back/Spine no CVA tenderness and normal to inspection Extremity normal to inspection General Extremety ED: Negative for edema or tenderness General Extremity: Negative for edema Neuro oriented x3 Sensorium / Orientation: alert and oriented to person Psych mental status grossly normal Skin no wounds Lesions: no lesions Rashes: no rashes MDM MDM MDM Narrative Medical decision making narrative: Patient's blood work shows normal CBC. Kidney function is better. X-ray is consistent with Covid. Patient does desaturate in the lower to mid 80s. However on 2 L he does quite well. He is otherwise improving. He feels well. I think this is reasonable to get him home on home oxygen. He is already on Decadron. He wants to go home. We were able to get him set up with home oxygen. We discussed reasons to return. Lab Data Attestation: I reviewed the patient's lab results. Labs: Laboratory Results - last 24 hr 07/01/21 07/01/21 15:40 15:40 WBC 9.3 RBC 5.16 Hgb 13.7 Hct 41.2 MCV 79.8 L MCH 26.6 L MCHC 33.3 RDW Std Deviation 38.1 RDW Coeff of Paul 13.2 Plt Count 219 MPV 11.3 Immature Gran % (Auto) 0.900 Neut % (Auto) 87.8 H Lymph % (Auto) 6.9 L [place] % (Auto) 4.3 Eos % (Auto) 0.0 Baso % (Auto) 0.1 Absolute Neuts (auto) 8.2 H Absolute Lymphs (auto) 0.64 L Nucleated RBC % 0 Sodium 138 Potassium 4.3 Chloride 104 Carbon Dioxide 29.0 Anion Gap 5 BUN 25 H Creatinine 0.99 Estim Creat Clear Calc 90.12 Est GFR (MDRD) Af Amer 102 Est GFR (MDRD) Non-Af 84 BUN/Creatinine Ratio 25.3 H Glucose 271 H Calcium 7.8 L Radiography Diagnostic Testing: Clinical Impression(s) from Imaging Studies Chest X-Ray 07/01/21 15:15 IMPRESSION: Multifocal infiltrates with features commonly reported with COVID pneumonia. Electronically Signed: Ej Chambers MD (Brooks) at 16:19 EST , Service support , EKG Initial EKG: Comments: EKG done for dyspnea read by me shows normal sinus rhythm with a rate of 83. No ectopy. No acute ST elevation or depression consistent with infarct or ischemia. No signs of significant strain. NM interval, QRS duration and QTc normal. Discharge Plan Triage Chief Complaint: Shortness of Breath ED Provider: Jose Elias Lundberg Dx/Rx/DC Orders Clinical Impression: COVID-19, Hypoxia Instructions: Caring for Someone Who Has COVID-19 Prescriptions: No Action furosemide 40 mg tablet 40 mg PO BID RF: 0 levothyroxine 175 mcg tablet 175 mcg PO DAILY RF: 0 atorvastatin 10 mg tablet 10 mg PO QHS RF: 0 lisinopril 20 mg tablet 20 mg PO DAILY RF: 0 omeprazole 20 mg capsule,delayed release(DR/EC) 20 mg PO DAILY RF: 0 insulin lispro 100 unit/mL solution 150 unit continuous subcutaneous infusion DAILY RF: 0 pyikzybkhojemfc-jwfqecoce-NK 2-30-10 mg/5 mL syrup 10 ml PO Q6H RF: 0 dexamethasone 6 mg tablet 6 mg PO DAILY Qty: 8 RF: 0 Primary Care Provider: Higinio Tovar Referrals: Higinio Tovar MD [Primary Care Provider] - 3-5 Days if not improving Disposition Disposition: Home, Self Care
[2021-07-01] MEDS: Ipratropium/Albuterol Sulfate 3 ML AMPUL.NEB INHALATION (15:27)
[2021-07-01 15:35] VITALS: O2SAT 93
[2021-07-01 16:01] LABS: Absolute Lymphocyte Count 0.64 X10^3/uL (0.83-4.51); Absolute Neutrophil Count 8.2 X10^3/uL (2.0-7.7); Basophil# 0.01 X10^3/uL; Basophil% 0.1 % (0-1); Hematocrit 41.2 % (40-54); Hemoglobin 13.7 g/dL (13.0-16.5); Lymphocyte # 0.64 X10^3/ul (0.83-4.51); Lymphocyte % 6.9 % (19-41); Mean Corp Hgb Conc 33.3 g/dL (32-36); Mean Corpuscular Hgb 26.6 pg (27.0-32.0); Mean Corpuscular Volume 79.8 fL (80-94); Mean Platelet Vol. 11.3 fl (6.2-12.0); Monocyte% 4.3 % (0-10); NRBC Flagged by Analyzer 0 % (0-5); Neutrophil # 8.19 X10^3/uL (2.7-7.7); Neutrophil % 87.8 % (47-70); Platelet Count 219 K/mm3 (150-450); RBC Distribution Width CV 13.2 % (11.6-14.6); RBC Distribution Width SD 38.1 fl (35.1-43.9); Red Blood Count 5.16 M/mm3 (4.6-6.2); White Blood Count 9.3 K/mm3 (4.4-11.0)
[2021-07-01 16:07] LABS: Anion Gap 5 (5-15); BUN 25 mg/dL (7-18); BUN/Creat Ratio 25.3 RATIO (10-20); Calcium,Total 7.8 mg/dL (8.5-10.1); Chloride 104 mmol/L (98-107); Creatinine, Serum 0.99 mg/dL (0.70-1.30); EST Glomerular Filtration Rate 84 mL/min (>60); Est Glom Filt Rate - Afr Amer 102 mL/min (>60); Estimated Creatinine Clearance 90.12 ml/min; Glucose 271 mg/dL (74-106); Potassium 4.3 mmol/L (3.5-5.1); Sodium Level 138 mmol/L (136-145)
[2021-07-01 16:57] VITALS: PULSE 84; RESP 16; O2SAT 90; O2SAT 93
--- NOTE | 2021-07-02 15:01 | CASEMGMT ---
[facility] COVID Home O2 Follow-up: This RN CM contacted pt via phone for follow-up. Pt states his home O2 was set-up without any issues and reports to be wearing it at 2l/min. States his PO was last 94%. Pt states he has been eating and drinking without difficulty and overall is feeling pretty good. Pt has been in contact with Dr. Tovar's office but does not have a formal appointment at this time. Pt denies any questions or concerns regarding his discharge instructions or illness. Marilyn Cox RN CM
== END 2021-07-01 19:26 | disposition home or self-care (01) ==
PROVIDERS: Emergency Provider Emergency Medicine; PCP Family Medicine
DX: U07.1 COVID-19 (principal); R09.02 Hypoxemia
CPT/HCPCS: 71045; 80048; 85025; 93005; 94640; 99284; A4216

== ENCOUNTER 2021-10-08 20:00 | Outpatient (CLI) | payer BC, SELFPAY | END 2021-10-08 23:59 | disposition home or self-care (01) | PROVIDERS: PCP Family Medicine; Visit Provider Family Medicine | DX: G47.10 Hypersomnia, unspecified (principal); G47.34 Idiopathic sleep related nonobstructive alveolar hypoventilation | CPT/HCPCS: 95811 ==

== ENCOUNTER 2021-10-30 20:32 | Outpatient (CLI) | payer BC, SELFPAY | END 2021-10-30 23:59 | disposition home or self-care (01) | PROVIDERS: PCP Family Medicine; Visit Provider Psychiatry & Neurology Sleep Medicine | DX: G47.33 Obstructive sleep apnea (adult) (pediatric) (principal) | CPT/HCPCS: 95811 ==

== ENCOUNTER → 2021-12-25 | Outpatient (CLI) | payer BC, SELFPAY ==
--- NOTE | 2021-12-25 09:02 | ECHOCS_ITS ---
Reason For Study: CENTRAL SLEEP APNEA Procedure This was a 2D Doppler, Color Flow transthoracic echocardiogram. The study was technically difficult. Contrast injection was performed. Exam performed in department. Left Ventricle Normal LV size. Left ventricular systolic function is normal. The estimated ejection fraction is 65 %. Diastolic function is indeterminate. No regional wall motion abnormalities noted. Right Ventricle Normal RV size. Normal systolic function. Atria Normal left atrium. Normal right atrium. No doppler evidence for ASD. Mitral Valve There is no mitral annular calcification. Normal mitral valve. Trivial mitral valve insufficiency. Tricuspid Valve Normal tricuspid valve. Trivial tricuspid valve insufficiency. Unable to estimate RV systolic pressure/pulmonary artery pressure due to technically difficult study. Aortic Valve Trisinus/trileaflet aortic valve. Normal aortic valve. Pulmonic Valve The pulmonic valve is not well visualized. Great Vessels Normal sized aortic root. Pericardium/Pleural No pericardial effusion. Medication 22 gauge I.V. with prn adaptor inserted into right arm. Diluted definity 1.5ml given slow IV push to enhance endocardial definition. MMode/2D Measurements & Calculations LVIDd: 3.6 cm IVSd: 1.1 cm Ao root diam: 3.3 cm LVIDs: 2.4 cm LVPWd: 1.3 cm RVDd: 3.7 cm FS: 33.1 % LAV(MOD-bp): 64.4 ml LVAd ap4: 40.3 cm2 LVAd ap2: 40.9 cm2 LAV(MOD-bp) Indexed: 27.4 ml/m2 LVLd ap4: 9.7 cm LVLd ap2: 10.0 cm LAV(MOD-sp2): 74.0 ml EDV(MOD-sp4): 135.6 ml EDV(MOD-sp2): 137.7 ml LAV(MOD-sp4): 50.8 ml EDV(sp4-el): 141.7 ml EDV(sp2-el): 141.8 ml LVAs ap4: 22.0 cm2 LVAs ap2: 21.9 cm2 LVLs ap4: 7.6 cm LVLs ap2: 7.8 cm ESV(MOD-sp4): 54.6 ml ESV(MOD-sp2): 50.1 ml ESV(sp4-el): 53.9 ml ESV(sp2-el): 52.3 ml EF(MOD-sp4): 59.7 % EF(MOD-sp2): 63.6 % EF(sp4-el): 61.9 % SV(MOD-sp4): 81.0 ml SV(MOD-sp2): 87.5 ml SV(sp4-el): 87.8 ml LA A4 area: 19.1 cm2 LA dimension(2D): 3.9 cm RA A4 area: 14.6 cm2 Doppler Measurements & Calculations MV E max wilfred: 92.0 cm/sec Lat Peak E' Wilfred: 9.0 cm/sec Med Peak E' Wilfred: 8.1 cm/sec E/E' lat: 10.3 E/E' med: 11.4 Ao V2 max: 105.2 cm/sec LV V1 max: 87.0 cm/sec PA V2 max: 68.1 cm/sec Ao max P.4 mmHg LV V1 max P.0 mmHg Ao V2 mean: 70.5 cm/sec LV V1 mean P.5 mmHg Ao mean P.3 mmHg LV V1 mean: 56.3 cm/sec Ao V2 VTI: 19.1 cm LV V1 VTI: 20.9 cm ECHO/Echo Complete W/ Contrast Interpretation Summary The study was technically difficult. Contrast injection was performed. Left ventricular systolic function is normal. The estimated ejection fraction is 65 %. Trivial mitral valve insufficiency. Trivial tricuspid valve insufficiency. Unable to estimate RV systolic pressure/pulmonary artery pressure due to techni july difficult study. Diastolic function is indeterminate. Ordering Physician: Michael Jackson Referring Physician: Michael Jackson Performed By: Earlene Crowe RCS
== END | disposition home or self-care (01) ==
LOC: CVS 09:01
PROVIDERS: PCP Family Medicine; Referring Provider Psychiatry & Neurology Sleep Medicine; Visit Provider Psychiatry & Neurology Sleep Medicine
DX: G47.31 Primary central sleep apnea (principal)
CPT/HCPCS: 93306; Q9957; A4216; C8929

== ENCOUNTER → 2022-01-01 | Outpatient (CLI) | payer BC, SELFPAY | END | disposition home or self-care (01) | LOC: SL 22:19 | PROVIDERS: PCP Family Medicine; Visit Provider Psychiatry & Neurology Sleep Medicine | DX: G47.33 Obstructive sleep apnea (adult) (pediatric) (principal) ==

== ENCOUNTER 2022-01-12 00:12 | Emergency (ER) | payer BC, SELFPAY ==
[2022-01-12 00:13] VITALS: TEMP 36.7; BMI 39.3
[2022-01-12 00:16] VITALS: BP 153/77; PULSE 95; RESP 18; O2SAT 99
--- NOTE | 2022-01-12 00:41 | EDS_ITS ---
HPI History of Present Illness Chief Complaint: Nausea/Vomiting/Diarrhea Informant: patient Onset/Context/Timing Onset: Days (3) Context: Gradual Onset Timing: Waxes and wanes Quality: Cramping Location: Diffuse abdominal Worsened by: Nothing Relieved by: Nothing Narrative Narrative: Patient presents with nausea, vomiting, and diarrhea that has been getting worse over the last 3 days. Patient states his nausea vomiting has been intermittent but constant tonight. Patient states he has had multiple episodes of diarrhea tonight. Patient states both his emesis and his diarrhea are very watery. Patient denies any hematemesis or coffee-ground emesis. Patient denies any melena or hematochezia. Patient admits to some mild diffuse abdominal cramping. Patient states nothing makes it better nothing makes it worse. Patient states his pain waxes and wanes. Patient denies any dysuria, urgency, frequency, or hematuria. [facility] Medical History Diabetes Diabetes mellitus type 2 in obese GERD (gastroesophageal reflux disease) HLD (hyperlipidemia) HTN (hypertension) Hypertension Hypothyroidism Morbid obesity Non-smoker Pneumonia due to COVID-19 virus Sleep apnea Home Medications atorvastatin 10 mg PO QHS 06/28/21 [History Last Taken 06/27/21] ocrtsdhhicluoga-mkmfhqwyt-TN 10 ml PO Q6H 06/28/21 [History Last Taken 06/27/21] furosemide 40 mg PO BID 06/28/21 [History Last Taken Unknown] insulin lispro 150 unit CONTINUOUS SUBCUTANEOUS INFUSION DAILY 06/28/21 [History Last Taken 06/28/21] levothyroxine 175 mcg PO DAILY 06/28/21 [History Last Taken 06/27/21] lisinopril 20 mg PO DAILY 06/28/21 [History Last Taken 06/27/21] omeprazole 20 mg PO DAILY 06/28/21 [History Last Taken 06/27/21] dexamethasone 6 mg PO DAILY #8 tab 06/29/21 [Rx Last Taken Unknown] ondansetron 4 mg PO Q8H PRN PRN #10 tab 01/12/22 [Rx Last Taken Unknown] Allergy/AdvReac Type Severity Reaction Status Date / Time metformin Allergy PT UNSURE Verified 01/12/22 00:18 OF REACTION Family History Mother Diabetes Hypertension Parkinsons disease Hemophilia Father Hypertension Cancer Hx Skin CA. Lung disease Myasthenia gravis Surgical History S/P thyroidectomy Status post hip surgery Social History household members: spouse Smoking Status: Never smoker alcohol intake: current alcohol intake frequency: holidays/special occasions only substance use type: does not use ROS ROS ED Constitutional Constitutional ED: Reports chills and subjective; Denies fever(s) Eyes Eyes: Denies blurry vision or change in vision ENT ENT ED: Denies rhinorrhea or sore throat Cardiovascular Cardiovascular: Denies chest pain or palpitations Respiratory/Chest Respiratory/Chest: Denies cough or dyspnea Gastrointestinal Gastrointestinal: Reports abdominal pain, diarrhea, nausea and vomiting; Denies melena Genitourinary Genitourinary ED: Denies dysuria or hematuria Musculoskeletal Musculoskeletal: Denies back pain or neck pain Integumentary Denies abscess or rash Neurologic Neurologic: Denies headache(s) or weakness Allergic/Immunologic Allergic/Immunologic ED: Denies mouth swelling or urticaria EXAM Physical Exam Const Vital Signs: 01/12/22 00:13 01/12/22 00:16 Temperature 98.1 F Temperature Source Oral Pulse Rate 95 Respiratory Rate 18 Blood Pressure 153/77 H Blood Pressure Mean 102 Pulse Ox 99 Oxygen Delivery Method Room Air Positive well nourished and well developed General Appearance ED: well developed HEENT Reports moist mucous membranes Neck supple and no JVD Resp normal respiratory effort and clear to auscultation bilaterally Cardio regular rate, regular rhythm and no murmurs GI normal to inspection, nondistended, normoactive bowel sounds Palpation: soft and tender epigastric, LLQ, RLQ, LUQ, RUQ, periumbilical and suprapubic; Negative for guarding or rebound tenderness present Extremity normal to inspection General Extremety ED: Negative for edema or tenderness General Extremity: Negative for edema Neuro oriented x3, CN's II-XII intact bilaterally and no sensory deficits noted Sensorium / Orientation: alert Motor Exam: strength 5/5 throughout Psych mental status grossly normal Skin no rashes or lesions noted MDM MDM MDM Narrative Medical decision making narrative: Patient was given IV fluids, morphine, and Zofran here. CBC shows a mild leukocytosis of 11.5. Comprehensive metabolic profile was within normal limits. Lipase was normal. Urinalysis does not show any evidence of urinary tract infection or hematuria. CT scan of the abdomen pelvis with oral and IV contrast was obtained. There are multiple gallstones. There is no biliary ductal dilatation. There is no pericholecystic fluid. There is no evidence of bowel obstruction or perforation. There is no other acute abnormality noted. Patient is feeling somewhat better on reevaluation. Patient is still having some diarrhea. Patient was instructed to follow-up with his primary care physician in 3 to 5 days. Patient was instructed that he may need to see a applications support lead for further evaluation. Patient was instructed to return if worse in any way. Patient was given a prescription for Zofran. Patient and his understood and were agreeable with the plan. All questions were answered. Lab Data Labs: Laboratory Results - last 24 hr 01/12/22 01/12/22 01/12/22 00:27 00:27 01:50 WBC 11.5 H RBC 5.31 Hgb 13.9 Hct 43.6 MCV 82.1 MCH 26.2 L MCHC 31.9 L RDW Std Deviation 40.4 RDW Coeff of Paul 13.8 Plt Count 261 MPV 11.4 Immature Gran % (Auto) 0.300 Neut % (Auto) 77.9 H Lymph % (Auto) 13.5 L [place] % (Auto) 7.1 Eos % (Auto) 0.9 Baso % (Auto) 0.3 Absolute Neuts (auto) 9.0 H Absolute Lymphs (auto) 1.55 Nucleated RBC % 0 Sodium 140 Potassium 3.7 Chloride 108 H Carbon Dioxide 30.0 Anion Gap 2 L BUN 15 Creatinine 0.96 Estim Creat Clear Calc 91.88 Est GFR (MDRD) Af Amer 105 Est GFR (MDRD) Non-Af 87 BUN/Creatinine Ratio 15.6 Glucose 123 H Calcium 8.5 Total Bilirubin 0.90 AST 21 ALT 26 Alkaline Phosphatase 75 Total Protein 6.7 Albumin 3.4 Globulin 3.3 Albumin/Globulin Ratio 1.0 Lipase 119 Urine Color Yellow Urine Clarity Clear Urine pH 6.0 Ur Specific [place] 1.025 Urine Protein 30 H Urine Glucose (UA) 50 H Urine Ketones Negative Urine Occult Blood 10 H Urine Nitrite Negative Urine Bilirubin Negative Urine Urobilinogen Normal Ur Leukocyte Esterase Negative Urine RBC 0 SEEN Urine WBC 0 SEEN Ur Squamous Epith Cells 0 SEEN Urine Bacteria 0 SEEN Urine Mucus 0 SEEN Radiography Diagnostic Testing: Clinical Impression(s) from Imaging Studies Abdomen/Pelvis CT 01/12/22 00:45 IMPRESSION: There are multiple gallstones. Electronically Signed: Mac Koroma MD at 3:13 EDT Reading Location ID and State: [facility] / [place] Tel , Service support , Discharge Plan Triage Chief Complaint: Nausea/Vomiting/Diarrhea ED Provider: Jose Fournier Dx/Rx/DC Orders Clinical Impression: Abdominal pain in male, Nausea vomiting and diarrhea Instructions: ED Diarrhea, Unknown Cause, ED Vomiting (Adult) Prescriptions: New ondansetron [ondansetron] 4 MG tablet 4 mg PO Q8H PRN PRN (Reason: Nausea) Qty: 10 RF: 0 No Action furosemide 40 mg tablet 40 mg PO BID RF: 0 levothyroxine 175 mcg tablet 175 mcg PO DAILY RF: 0 atorvastatin 10 mg tablet 10 mg PO QHS RF: 0 lisinopril 20 mg tablet 20 mg PO DAILY RF: 0 omeprazole 20 mg capsule,delayed release(DR/EC) 20 mg PO DAILY RF: 0 insulin lispro 100 unit/mL solution 150 unit continuous subcutaneous infusion DAILY RF: 0 sprtmapxcybbzwm-auwrzwiqp-QP 2-30-10 mg/5 mL syrup 10 ml PO Q6H RF: 0 dexamethasone 6 mg tablet 6 mg PO DAILY Qty: 8 RF: 0 Primary Care Provider: Higinio Tovar Referrals: Higinio Tovar MD [Primary Care Provider] - 3-5 Days Disposition Disposition: Home, Self Care
--- NOTE | 2022-01-12 00:45 | CT_ITS ---
STUDY: CT ABDOMEN AND PELVIS WITH CONTRAST REASON FOR EXAM: Male, 51 years old. Abdominal pain -- IV PO Contrast RADIATION DOSAGE (If Supplied By Facility): CTDIvol = ( 15.33 ) mGy, DLP = ( 1359.22 ) mGycm TECHNIQUE: Transaxial images were obtained from the dome of the diaphragm to the symphysis pubis without oral contrast. Oral and amp; IV Gastrografin and amp; 100mL Isovue-300 was administered. Sagittal and coronal images were reconstructed. Individualized dose optimization techniques were used for this CT. COMPARISON: None. FINDINGS: The visualized lung bases are unremarkable. The visualized portions of the heart are within normal limits. There is decreased attenuation of the liver consistent with steatosis. There are multiple gallstones. Normal spleen. Normal pancreas. Normal bilateral adrenal glands. Normal right kidney. Normal left kidney. Normal visualized stomach. Normal small intestine. Normal colon. The appendix is visualized and appears normal. Normal abdominal aorta. Normal inferior vena cava. Normal retroperitoneum. Normal urinary bladder. Normal abdominal wall. Normal osseous structures. CT/Abdomen/Pelvis WITH Contrast IMPRESSION: There are multiple gallstones. Electronically Signed: Mac Koroma MD at 3:13 EDT ,
[2022-01-12] MEDS: Ondansetron 4 MG/2 ML Vial IV (00:57)
[2022-01-12] MEDS: Morphine 4 MG/ML Syringe IV (00:58)
[2022-01-12] MEDS: 0.9% Normal Saline 1,000 ML 1000 ML IV (00:59)
[2022-01-12 01:13] LABS: Absolute Lymphocyte Count 1.55 X10^3/uL (0.83-4.51); Basophil# 0.03 X10^3/uL; Basophil% 0.3 % (0-1); Eosinophils% 0.9 % (0-5); Hematocrit 43.6 % (40-54); Hemoglobin 13.9 g/dL (13.0-16.5); Lymphocyte # 1.55 X10^3/ul (0.83-4.51); Lymphocyte % 13.5 % (19-41); Mean Corp Hgb Conc 31.9 g/dL (32-36); Mean Corpuscular Hgb 26.2 pg (27.0-32.0); Mean Corpuscular Volume 82.1 fL (80-94); Mean Platelet Vol. 11.4 fl (6.2-12.0); Monocyte# 0.82 X10^3/uL; Monocyte% 7.1 % (0-10); NRBC Flagged by Analyzer 0 % (0-5); Neutrophil # 8.96 X10^3/uL (2.7-7.7); Neutrophil % 77.9 % (47-70); Platelet Count 261 K/mm3 (150-450); RBC Distribution Width CV 13.8 % (11.6-14.6); RBC Distribution Width SD 40.4 fl (35.1-43.9); Red Blood Count 5.31 M/mm3 (4.6-6.2); White Blood Count 11.5 K/mm3 (4.4-11.0)
[2022-01-12 01:30] LABS: AST(SGOT) 21 U/L (15-37); Alanine Aminotransfer ALT/SGPT 26 U/L (16-61); Albumin, Serum 3.4 g/dL (3.2-5.0); Alkaline Phosphatase 75 U/L (45-117); Anion Gap 2 (5-15); BUN 15 mg/dL (7-18); BUN/Creat Ratio 15.6 RATIO (10-20); Calcium,Total 8.5 mg/dL (8.5-10.1); Chloride 108 mmol/L (98-107); Creatinine, Serum 0.96 mg/dL (0.70-1.30); EST Glomerular Filtration Rate 87 mL/min (>60); Est Glom Filt Rate - Afr Amer 105 mL/min (>60); Estimated Creatinine Clearance 91.88 ml/min; Globulin 3.3 g/dL (2.2-4.2); Glucose 123 mg/dL (74-106); Lipase 119 U/L (73-393); Potassium 3.7 mmol/L (3.5-5.1); Protein, Total 6.7 g/dL (6.4-8.2); Sodium Level 140 mmol/L (136-145)
[2022-01-12 02:00] LABS: Bacteria 0 SEEN /hpf (None Seen); Mucous, Urine 0 SEEN /hpf (<or=2+); Red Blood Cells-Urine 0 SEEN /hpf (0-5); Squamous Epithelial Cells - UA 0 SEEN /hpf (0-5); White Blood Cells 0 SEEN /hpf (0-5)
[2022-01-12 02:10] LABS: Color, Urine Yellow (Yellow); Glucose, Dipstick 50 mg/dl (Normal); Ketone-Dipstick Negative (Negative); Leukocyte Esterase-Dipstick Negative /ul (Negative); Nitrite-Dipstick Negative (Negative); Occult Blood-Urine 10 /ul (Negative); Protein-Dipstick 30 mg/dl (Negative); Specific Gravity, Urine 1.025 (1.002-1.030); Urine Bilirubin Dipstick Negative (Negative); Urine Clarity Clear (Clear); Urine Urobilinogen Normal (Normal)
[2022-01-12 04:31] VITALS: PULSE 80; RESP 16; O2SAT 98
== END 2022-01-12 04:31 | disposition home or self-care (01) ==
PROVIDERS: Emergency Provider Emergency Medicine; PCP Family Medicine; Referring Provider Emergency Medicine; Visit Provider Emergency Medicine
DX: R10.9 Unspecified abdominal pain (principal); R11.2 Nausea with vomiting, unspecified; R19.7 Diarrhea, unspecified; G47.30 Sleep apnea, unspecified; Z86.16 Personal history of COVID-19
CPT/HCPCS: 74177; 80053; 81001; 83690; 85025; 87428; 96361; 96374; 96375; 99284; Q9967; A4216; J2405

== ENCOUNTER 2022-02-13 14:50 | Emergency (ER) | payer BC, SELFPAY ==
[2022-02-13 14:50] VITALS: BP 143/79; PULSE 99; RESP 15; TEMP 36.7; O2SAT 98; BMI 39.0
--- NOTE | 2022-02-13 15:32 | EDS_ITS ---
HPI History of Present Illness Chief Complaint: Nausea/Vomiting/Diarrhea Informant: patient Narrative Narrative: 51-year-old male presenting to the emergency room with chronic intermittent vomiting and diarrhea. Patient states that this episode began Thursday night. Typically last around 3 days. He has undergone colonoscopy and endoscopy. He recently discontinued his omeprazole extremity the acid test. He was seen in the emergency department the beginning of February had a CT scan that showed gallstones and sludge. He notes epigastric pain. He denies any melena or blood in vomit or stool [facility] Medical History Diabetes Diabetes mellitus type 2 in obese GERD (gastroesophageal reflux disease) HLD (hyperlipidemia) HTN (hypertension) Hypertension Hypothyroidism Morbid obesity Non-smoker Pneumonia due to COVID-19 virus Sleep apnea Home Medications atorvastatin 10 mg tablet 10 mg PO QHS cholesterol 06/28/21 [History Last Taken 06/27/21] pfyuxpbhauxjafz-isofngxxhtwsbxf-ZV 2 mg-30 mg-10 mg/5 mL oral syrup 10 ml PO Q6H congestion 06/28/21 [History Last Taken 06/27/21] furosemide 40 mg tablet 40 mg PO BID diuretic 06/28/21 [History Last Taken Unknown] insulin lispro 100 unit/mL subcutaneous solution 150 unit continuous subcutaneous infusion DAILY diabetes 06/28/21 [History Last Taken 06/28/21] levothyroxine 175 mcg tablet 175 mcg PO DAILY thyroid 06/28/21 [History Last Taken 06/27/21] lisinopril 20 mg tablet 20 mg PO DAILY htn 06/28/21 [History Last Taken ] omeprazole 20 mg capsule,delayed release 20 mg PO DAILY reflux 06/28/21 [History Last Taken 06/27/21] dexamethasone 6 mg tablet 6 mg PO DAILY #8 tabs 06/29/21 [Rx Last Taken Unknown] ondansetron 4 mg disintegrating tablet 4 mg PO Q8H PRN PRN Nausea #10 tabs 01/12/22 [Rx Last Taken Unknown] ondansetron 4 mg disintegrating tablet 4 mg PO Q6H PRN PRN Nausea #30 tabs 02/13/22 [Rx Last Taken Unknown] Allergy/AdvReac Type Severity Reaction Status Date / Time metformin Allergy PT UNSURE Verified 02/13/22 14:52 OF REACTION Family History Mother Diabetes Hypertension Parkinsons disease Hemophilia Father Hypertension Cancer Hx Skin CA. Lung disease Myasthenia gravis Surgical History S/P thyroidectomy Status post hip surgery Social History household members: spouse Smoking Status: Never smoker alcohol intake: current alcohol intake frequency: holidays/special occasions only substance use type: does not use ROS ROS ED Constitutional Constitutional ED: Denies chills, fever(s) or weight loss Eyes Eyes: Denies change in vision or diplopia ENT ENT ED: Denies ear pain, rhinorrhea or sore throat Cardiovascular Cardiovascular: Denies chest pain, orthopnea, palpitations or racing heartbeat Respiratory/Chest Respiratory/Chest: Denies cough, dyspnea or orthopnea Gastrointestinal Gastrointestinal: Reports abdominal pain, diarrhea, nausea and vomiting Genitourinary Genitourinary ED: Denies dysuria, hematuria or urinary frequency Musculoskeletal Musculoskeletal: Denies arthralgias or myalgias Integumentary Denies abscess or rash Neurologic Neurologic: Denies headache(s) or weakness Psychiatric Psychiatric: Denies anxiety, depression, suicidal ideation or suicidal thoughts Endocrine Endocrinology: Denies polydipsia, polyphagia or polyuria Allergic/Immunologic Allergic/Immunologic ED: Denies mouth swelling, tongue swelling or urticaria EXAM Physical Exam Const Vital Signs: 02/13/22 14:50 Temperature 98.1 F Temperature Source Temporal Pulse Rate 99 Respiratory Rate 15 Blood Pressure 143/79 H Blood Pressure Mean 100 Pulse Ox 98 Oxygen Delivery Method Room Air Positive well nourished, well developed and obese General Appearance ED: well developed Nutritional Appearance: obese HEENT Reports normocephalic, head/scalp atraumatic and moist mucous membranes Eyes PERRL and EOMs intact bilaterally Neck no lymphadenopathy, supple and no JVD Resp normal respiratory effort and clear to auscultation bilaterally Cardio regular rate, regular rhythm and no murmurs GI Auscultation: normoactive bowel sounds Palpation: soft and tender epigastric; Negative for guarding, splenomegaly or rebound tenderness present Back/Spine no CVA tenderness and normal ROM Extremity normal to inspection General Extremety ED: Negative for edema General Extremity: Negative for edema Neuro oriented x3 and CN's II-XII intact bilaterally Sensorium / Orientation: alert Motor Exam: strength 5/5 throughout Psych mental status grossly normal Mood & Affect: Negative for depressed or tearful Skin no rashes or lesions noted and no wounds MDM MDM MDM Narrative Medical decision making narrative: Count is normal at 10.1. Total bilirubin 1.8 with normal transaminases and alkaline phosphatase. Electrolytes are normal glucose Thursday morning lipase normal at 68. Patient received IV fluids GI cocktail and Zofran. I do not have a clear explanation for the patient's episodic vomiting and diarrhea. He is working with gastroenterology. Think I can write the patient to have some more Zofran would encourage him to follow-up Lab Data Attestation: I reviewed the patient's lab results. Labs: Laboratory Results - last 24 hr 02/13/22 02/13/22 15:34 15:34 WBC 10.1 RBC 5.15 Hgb 13.7 Hct 42.5 MCV 82.5 MCH 26.6 L MCHC 32.2 RDW Std Deviation 41.6 RDW Coeff of Paul 14.0 Plt Count 253 MPV 10.7 Immature Gran % (Auto) 0.200 Neut % (Auto) 74.2 H Lymph % (Auto) 16.4 L [place] % (Auto) 6.5 Eos % (Auto) 2.6 Baso % (Auto) 0.1 Absolute Neuts (auto) 7.5 Absolute Lymphs (auto) 1.66 Nucleated RBC % 0 Sodium 137 Potassium 3.5 Chloride 104 Carbon Dioxide 30.0 Anion Gap 3 L BUN 17 Creatinine 1.28 Estim Creat Clear Calc 68.91 Est GFR (MDRD) Af Amer 76 Est GFR (MDRD) Non-Af 62 BUN/Creatinine Ratio 13.3 Glucose 220 H Calcium 8.8 Total Bilirubin 1.80 H AST 17 ALT 24 Alkaline Phosphatase 74 Total Protein 6.5 Albumin 3.4 Globulin 3.1 Albumin/Globulin Ratio 1.1 Lipase 68 L Discharge Plan Triage Chief Complaint: Nausea/Vomiting/Diarrhea ED Provider: Uziel Thomas Dx/Rx/DC Orders Clinical Impression: Abdominal pain, vomiting, and diarrhea Instructions: ED Vomiting and Diarrhea ... Prescriptions: New ondansetron [ondansetron] 4 mg tablet,disintegrating 4 mg PO Q6H PRN PRN (Reason: Nausea) Qty: 30 0RF No Action furosemide 40 mg tablet 40 mg PO BID levothyroxine 175 mcg tablet 175 mcg PO DAILY atorvastatin 10 mg tablet 10 mg PO QHS lisinopril 20 mg tablet 20 mg PO DAILY omeprazole 20 mg capsule,delayed release(DR/EC) 20 mg PO DAILY insulin lispro 100 unit/mL solution 150 unit continuous subcutaneous infusion DAILY Label Comments: For use in insulin pump up to 150 units daily aictwqcrognuoml-kurxnpytb-QQ 2-30-10 mg/5 mL syrup 10 ml PO Q6H dexamethasone 6 mg tablet 6 mg PO DAILY Qty: 8 0RF ondansetron [ondansetron] 4 MG tablet 4 mg PO Q8H PRN PRN (Reason: Nausea) Qty: 10 0RF Primary Care Provider: Higinio Tovar Referrals: Higinio Tovar MD [Primary Care Provider] - As Needed
[2022-02-13 15:40] LABS: Absolute Lymphocyte Count 1.66 X10^3/uL (0.83-4.51); Absolute Neutrophil Count 7.5 X10^3/uL (2.0-7.7); Basophil# 0.01 X10^3/uL; Basophil% 0.1 % (0-1); Eosinophil# 0.26 X10^3/uL; Eosinophils% 2.6 % (0-5); Hematocrit 42.5 % (40-54); Hemoglobin 13.7 g/dL (13.0-16.5); Lymphocyte # 1.66 X10^3/ul (0.83-4.51); Lymphocyte % 16.4 % (19-41); Mean Corp Hgb Conc 32.2 g/dL (32-36); Mean Corpuscular Hgb 26.6 pg (27.0-32.0); Mean Corpuscular Volume 82.5 fL (80-94); Mean Platelet Vol. 10.7 fl (6.2-12.0); Monocyte# 0.66 X10^3/uL; Monocyte% 6.5 % (0-10); NRBC Flagged by Analyzer 0 % (0-5); Neutrophil # 7.49 X10^3/uL (2.7-7.7); Neutrophil % 74.2 % (47-70); Platelet Count 253 K/mm3 (150-450); RBC Distribution Width SD 41.6 fl (35.1-43.9); Red Blood Count 5.15 M/mm3 (4.6-6.2); White Blood Count 10.1 K/mm3 (4.4-11.0)
[2022-02-13] MEDS: Mag Hydrox/Al Hydrox/Simeth 30 ML UDC PO (15:50)
[2022-02-13] MEDS: Ondansetron 4 MG/2 ML Vial IV (15:50)
[2022-02-13] MEDS: 0.9% Normal Saline 1,000 ML 1000 ML IV (15:50)
[2022-02-13 15:56] LABS: ALB/GLOB Ratio 1.1 RATIO (0.9-2.4); AST(SGOT) 17 U/L (15-37); Alanine Aminotransfer ALT/SGPT 24 U/L (16-61); Albumin, Serum 3.4 g/dL (3.2-5.0); Alkaline Phosphatase 74 U/L (45-117); Anion Gap 3 (5-15); BUN 17 mg/dL (7-18); BUN/Creat Ratio 13.3 RATIO (10-20); Calcium,Total 8.8 mg/dL (8.5-10.1); Chloride 104 mmol/L (98-107); Creatinine, Serum 1.28 mg/dL (0.70-1.30); EST Glomerular Filtration Rate 62 mL/min (>60); Est Glom Filt Rate - Afr Amer 76 mL/min (>60); Estimated Creatinine Clearance 68.91 ml/min; Globulin 3.1 g/dL (2.2-4.2); Glucose 220 mg/dL (74-106); Lipase 68 U/L (73-393); Potassium 3.5 mmol/L (3.5-5.1); Protein, Total 6.5 g/dL (6.4-8.2); Sodium Level 137 mmol/L (136-145)
[2022-02-13 16:48] VITALS: BP 132/56; PULSE 89; RESP 15; O2SAT 98
== END 2022-02-13 16:48 | disposition home or self-care (01) ==
LOC: ED 15:35
PROVIDERS: Emergency Provider Emergency Medicine; PCP Family Medicine; Visit Provider Emergency Medicine
DX: R10.9 Unspecified abdominal pain (principal); R11.2 Nausea with vomiting, unspecified; R19.7 Diarrhea, unspecified; G47.30 Sleep apnea, unspecified; Z86.16 Personal history of COVID-19
CPT/HCPCS: 80053; 83690; 85025; 96374; 99284; J2405

== ENCOUNTER 2022-03-24 17:04 | Emergency (ER) | payer BC, SELFPAY ==
[2022-03-24 17:04] VITALS: BP 152/80; PULSE 96; RESP 16; TEMP 36.6; O2SAT 97; BMI 38.7
[2022-03-24 18:09] LABS: Absolute Lymphocyte Count 1.91 X10^3/uL (0.83-4.51); Absolute Neutrophil Count 4.7 X10^3/uL (2.0-7.7); Basophil# 0.03 X10^3/uL; Basophil% 0.4 % (0-1); Eosinophil# 0.09 X10^3/uL; Eosinophils% 1.3 % (0-5); Hemoglobin 14.1 g/dL (13.0-16.5); Lymphocyte # 1.91 X10^3/ul (0.83-4.51); Lymphocyte % 26.5 % (19-41); Mean Corp Hgb Conc 31.3 g/dL (32-36); Mean Corpuscular Hgb 25.9 pg (27.0-32.0); Mean Corpuscular Volume 82.7 fL (80-94); Monocyte# 0.43 X10^3/uL; NRBC Flagged by Analyzer 0 % (0-5); Neutrophil # 4.72 X10^3/uL (2.7-7.7); Neutrophil % 65.5 % (47-70); Platelet Count 281 K/mm3 (150-450); RBC Distribution Width CV 13.4 % (11.6-14.6); RBC Distribution Width SD 40.6 fl (35.1-43.9); Red Blood Count 5.44 M/mm3 (4.6-6.2); White Blood Count 7.2 K/mm3 (4.4-11.0)
[2022-03-24 18:29] LABS: AST(SGOT) 32 U/L (15-37); Alanine Aminotransfer ALT/SGPT 28 U/L (16-61); Albumin, Serum 3.4 g/dL (3.2-5.0); Alkaline Phosphatase 86 U/L (45-117); Anion Gap 5 (5-15); BUN 22 mg/dL (7-18); BUN/Creat Ratio 14.7 RATIO (10-20); Calcium,Total 9.1 mg/dL (8.5-10.1); Chloride 101 mmol/L (98-107); EST Glomerular Filtration Rate 52 mL/min (>60); Est Glom Filt Rate - Afr Amer 63 mL/min (>60); Estimated Creatinine Clearance 58.81 ml/min; Globulin 3.5 g/dL (2.2-4.2); Glucose 251 mg/dL (74-106); Potassium 3.8 mmol/L (3.5-5.1); Protein, Total 6.9 g/dL (6.4-8.2); Sodium Level 139 mmol/L (136-145)
[2022-03-24 18:36] LABS: Mucous, Urine 0 SEEN /hpf (<or=2+); Red Blood Cells-Urine 0 SEEN /hpf (0-5); Squamous Epithelial Cells - UA 0 SEEN /hpf (0-5); White Blood Cells 0 SEEN /hpf (0-5)
[2022-03-24 18:47] LABS: Color, Urine Straw (Yellow); Glucose, Dipstick 1000 mg/dl (Normal); Ketone-Dipstick Negative (Negative); Leukocyte Esterase-Dipstick Negative /ul (Negative); Nitrite-Dipstick Negative (Negative); Occult Blood-Urine Negative /ul (Negative); Protein-Dipstick Negative (Negative); Specific Gravity, Urine 1.015 (1.002-1.030); Urine Bilirubin Dipstick Negative (Negative); Urine Clarity Clear (Clear); Urine Urobilinogen Normal (Normal)
--- NOTE | 2022-03-24 19:20 | CT_ITS ---
STUDY: CT Abdomen And Pelvis W/O Contrast Injection 03/24/2022 7:57 PM REASON FOR EXAM: Male, 51 years old. ABDOMINAL PAIN R flank pain Technologist Notes RLQ ABD PAIN FOR PAST SEVERAL WEEKS TECHNIQUE: Transaxial images were obtained without oral contrast, and without intravenous contrast. Individualized dose optimization techniques were used for this CT. COMPARISON: None. FINDINGS: The visualized lung bases are unremarkable. The visualized portions of the heart are within normal limits. Unremarkable liver. There are multiple gallstones. Unremarkable spleen. Unremarkable pancreas. Unremarkable bilateral adrenal glands. No acute findings of the right kidney. No acute findings of the left kidney. Unremarkable visualized stomach. Unremarkable small intestine. Unremarkable colon. The appendix is visualized and appears unremarkable. There are no acute findings of the abdominal aorta. Unremarkable inferior vena cava. Subcentimeter mesenteric lymph nodes. Unremarkable urinary bladder. There is an umbilical hernia containing fat. Unremarkable osseous structures. CT/Abdomen/Pelvis without Cont IMPRESSION: (NOT LISTED IN ORDER OF SIGNIFICANCE) There are no acute findings. There are multiple gallstones. Other findings as above. Electronically Signed: Arpan Barker MD at 19:58 EDT Reading Location ID and State: [facility] / [place] , Service support ,
[2022-03-24] MEDS: Ondansetron 4 MG/2 ML Vial IV (19:31)
[2022-03-24] MEDS: Ketorolac 15 MG/ML Vial IV (19:31)
[2022-03-24 19:34] LABS: Bacteria RARE /hpf (None Seen)
--- NOTE | 2022-03-24 19:34 | ED.VIS.GI ---
HPI HPI - GI History of Present Illness Chief Complaint: Abd Pain Informant: patient Abdominal Pain/Flank Pain Onset: Yesterday Context: Sudden Onset Timing: Continuous Quality: Aching Location: Right Flank Current Severity: Moderate Maximum Severity: Moderate Worsened by: Car ride Relieved by: Nothing Nausea/Vomiting/Emesis GI Symptom: Positive for Nausea; Negative for Vomiting Diarrhea/Melena/Hematochezia GI Symptom: Negative for Diarrhea, Melena or Hematochezia Associated Symptoms Associated Symptoms: Negative for Dysuria, Frequency, Hematuria or Urgency Narrative Narrative: Patient states he had sudden onset of right flank pain yesterday that has been colicky since, it was a little into his low back but does not go anterior further or into his groin. He does not think he has had this before, is making him nauseated and anorexic, he has never had any surgeries in his abdomen, but he states that he has had chronically recurring abdominal problems that he has seen GI for and had scopes for. He states they saw a hiatal hernia but nothing else major. He states those issues/problems were different than the pain he is experiencing now. He denies any urinary symptoms, diarrhea, blood in his stool, vomiting, fevers. [facility] Medical History Diabetes Diabetes mellitus type 2 in obese GERD (gastroesophageal reflux disease) HLD (hyperlipidemia) HTN (hypertension) Hypertension Hypothyroidism Morbid obesity Non-smoker Pneumonia due to COVID-19 virus Sleep apnea Home Medications atorvastatin 10 mg tablet 10 mg PO QHS cholesterol 06/28/21 [History Last Taken 06/27/21] uxgvgfjdztnjqgt-ktmespaafijheid-CZ 2 mg-30 mg-10 mg/5 mL oral syrup 10 ml PO Q6H congestion 06/28/21 [History Last Taken 06/27/21] furosemide 40 mg tablet 40 mg PO BID diuretic 06/28/21 [History Last Taken Unknown] insulin lispro 100 unit/mL subcutaneous solution 150 unit continuous subcutaneous infusion DAILY diabetes 06/28/21 [History Last Taken 06/28/21] levothyroxine 175 mcg tablet 175 mcg PO DAILY thyroid 06/28/21 [History Last Taken 06/27/21] lisinopril 20 mg tablet 20 mg PO DAILY htn 06/28/21 [History Last Taken 06/27/21] omeprazole 20 mg capsule,delayed release 20 mg PO DAILY reflux 06/28/21 [History Last Taken 06/27/21] dexamethasone 6 mg tablet 6 mg PO DAILY #8 tabs 06/29/21 [Rx Last Taken Unknown] ondansetron 4 mg disintegrating tablet 4 mg PO Q8H PRN PRN Nausea #10 tabs 01/12/22 [Rx Last Taken Unknown] ondansetron 4 mg disintegrating tablet 4 mg PO Q6H PRN PRN Nausea #30 tabs 02/13/22 [Rx Last Taken Unknown] Allergy/AdvReac Type Severity Reaction Status Date / Time metformin Allergy PT UNSURE Verified 03/24/22 17:05 OF REACTION Family History Mother Diabetes Hypertension Parkinsons disease Hemophilia Father Hypertension Cancer Hx Skin CA. Lung disease Myasthenia gravis Surgical History S/P thyroidectomy Status post hip surgery Social History household members: spouse Smoking Status: Never smoker alcohol intake: current alcohol intake frequency: holidays/special occasions only substance use type: does not use ROS ROS ED Constitutional Constitutional ED: Reports anorexia; Denies chills or fever(s) Eyes Eyes: Denies change in vision or diplopia ENT ENT ED: Denies rhinorrhea or sore throat Cardiovascular Cardiovascular: Reports leg edema; Denies chest pain or palpitations Respiratory/Chest Respiratory/Chest: Denies cough or dyspnea Gastrointestinal Gastrointestinal: Reports abdominal pain and nausea; Denies diarrhea or vomiting Genitourinary Genitourinary ED: Reports as per HPI and flank pain; Denies dysuria or hematuria Musculoskeletal Musculoskeletal: Denies back pain or neck pain Integumentary Denies abscess or rash Neurologic Neurologic: Denies headache(s), paresthesias or weakness Psychiatric Psychiatric: Denies anxiety or suicidal thoughts EXAM Physical Exam Const Vital Signs: 03/24/22 17:04 03/24/22 22:00 Temperature 98 F Temperature Source Temporal Pulse Rate 96 91 Respiratory Rate 16 16 Blood Pressure 152/80 H 132/71 H Blood Pressure Mean 104 91 Pulse Ox 97 99 Oxygen Delivery Method Room Air Room Air Positive well nourished, well developed and obese General Appearance ED: well developed and NAD Nutritional Appearance: obese HEENT Reports moist mucous membranes normocephalic and atraumatic Eyes PERRL and EOMs intact bilaterally Neck full ROM and supple Resp normal respiratory effort and clear to auscultation bilaterally Cardio regular rate, regular rhythm and no murmurs GI non-distended GI Narrative: Tender in the right lateral mid abdomen. Nontender McBurney's point, nontender elsewhere although he states it is uncomfortable to palpate everywhere. No guarding or rebound tenderness. No palpable masses but obesity limits the exam. Negative Rovsing, obturator, psoas signs. No palpable hernias. Auscultation: normoactive bowel sounds Palpation: soft Back/Spine no CVA tenderness General Back: other FROM Extremity normal to inspection General Extremety ED: Yes edema; Negative for pulses abnormal or tenderness General Extremity: edema bilateral lower extremity Details: moderate (With changes consistent with chronic stasis dermatitis bilaterally and symmetrically); Negative for pulses abnormal Neuro oriented x3, CN's II-XII intact bilaterally and no sensory deficits noted Sensorium / Orientation: awake and alert Motor Exam: strength 5/5 throughout Skin no rashes or lesions noted and no wounds MDM MDM MDM Narrative Medical decision making narrative: Labs unremarkable, including liver enzymes and total bilirubin. Urine unremarkable except for glycosuria, his blood sugar is 251, he is a diabetic. Obtain a CT of the abdomen/pelvis given the differential in occluding right upper quadrant pathology retrocecal appendicitis, kidney stone/kidney infection. CT showed cholelithiasis no other acute abnormalities. I sent her for an ultrasound to evaluate further, shows no signs of acute cholecystitis, or pericholecystic fluid. After treatment he is feeling much better now. Certainly it is possible that his flank pain was musculoskeletal, GI in etiology, or biliary colic. I would have him follow-up with the surgeon, for further evaluation I do not think he needs to be admitted or have any procedures emergently. Discussed regarding a low-fat diet in the meantime. Lab Data Attestation: I reviewed the patient's lab results. Labs: Laboratory Results - last 24 hr 03/24/22 03/24/22 03/24/22 18:02 18:02 18:25 WBC 7.2 RBC 5.44 Hgb 14.1 Hct 45.0 MCV 82.7 MCH 25.9 L MCHC 31.3 L RDW Std Deviation 40.6 RDW Coeff of Paul 13.4 Plt Count 281 MPV 11.0 Immature Gran % (Auto) 0.300 Neut % (Auto) 65.5 Lymph % (Auto) 26.5 [place] % (Auto) 6.0 Eos % (Auto) 1.3 Baso % (Auto) 0.4 Absolute Neuts (auto) 4.7 Absolute Lymphs (auto) 1.91 Nucleated RBC % 0 Sodium 139 Potassium 3.8 Chloride 101 Carbon Dioxide 33.0 H Anion Gap 5 BUN 22 H Creatinine 1.50 H Estim Creat Clear Calc 58.81 Est GFR (MDRD) Af Amer 63 Est GFR (MDRD) Non-Af 52 L BUN/Creatinine Ratio 14.7 Glucose 251 H Calcium 9.1 Total Bilirubin 0.90 AST 32 ALT 28 Alkaline Phosphatase 86 Total Protein 6.9 Albumin 3.4 Globulin 3.5 Albumin/Globulin Ratio 1.0 Urine Color Straw Urine Clarity Clear Urine pH 6.0 Ur Specific [place] 1.015 Urine Protein Negative Urine Glucose (UA) 1000 H Urine Ketones Negative Urine Occult Blood Negative Urine Nitrite Negative Urine Bilirubin Negative Urine Urobilinogen Normal Ur Leukocyte Esterase Negative Urine RBC 0 SEEN Urine WBC 0 SEEN Ur Squamous Epith Cells 0 SEEN Urine Bacteria RARE Urine Mucus 0 SEEN Radiography Diagnostic Testing: Clinical Impression(s) from Imaging Studies Abdomen/Pelvis CT 03/24/22 19:20 IMPRESSION: (NOT LISTED IN ORDER OF SIGNIFICANCE) There are no acute findings. There are multiple gallstones. Other findings as above. Electronically Signed: Arpan Barker MD at 19:58 EDT Reading Location ID and State: [facility] / [place] , Service support , Gallbladder Ultrasound 03/24/22 20:38 IMPRESSION: undefined Discharge Plan Triage Chief Complaint: Abd Pain ED Provider: Charan Chris Dx/Rx/DC Orders Clinical Impression: Acute right flank pain, Cholelithiasis Instructions: ED Diet, Low Fat, ED Flank Pain, Uncertain Cause, ED Gallstones with Biliary Colic Prescriptions: No Action furosemide 40 mg tablet 40 mg PO BID levothyroxine 175 mcg tablet 175 mcg PO DAILY atorvastatin 10 mg tablet 10 mg PO QHS lisinopril 20 mg tablet 20 mg PO DAILY omeprazole 20 mg capsule,delayed release(DR/EC) 20 mg PO DAILY insulin lispro 100 unit/mL solution 150 unit continuous subcutaneous infusion DAILY Label Comments: For use in insulin pump up to 150 units daily dgpdpjjrahqoxqx-otjstxjpu-ZJ 2-30-10 mg/5 mL syrup 10 ml PO Q6H dexamethasone 6 mg tablet 6 mg PO DAILY Qty: 8 0RF ondansetron [ondansetron] 4 MG tablet 4 mg PO Q8H PRN PRN (Reason: Nausea) Qty: 10 0RF ondansetron [ondansetron] 4 mg tablet,disintegrating 4 mg PO Q6H PRN PRN (Reason: Nausea) Qty: 30 0RF Primary Care Provider: Higinio Tovar Referrals: Sherman Tellez MD [Med Staff - Active Staff] - (Call for appointment to have your gallstones/abdominal pain evaluated further) Higinio Tovar MD [Primary Care Provider] - Disposition Disposition: Home, Self Care
--- NOTE | 2022-03-24 20:38 | US_ITS ---
EXAM: Ultrasound abdomen, RUQ. HISTORY: pain, nausea COMPARISON: None. LIMITATIONS: None. LIVER: Mildly enlarged measuring 18.6 cm. The liver is mildly increased in echogenicity diffusely. PORTAL VEINS: Normal. GALLBLADDER Size: Normal. Stones/sludge: Multiple small gallstones. Wall thickness: Normal measuring 2 to 3 mm. Pericholecystic fluid: None. Sonographic Mcnulty sign: Negative. EXTRAHEPATIC BILE DUCTS: The partially visualized common duct is normal in caliber measuring 4 mm. PANCREAS: Not well visualized. RIGHT KIDNEY: Normal. OTHER: None. CONCLUSION: Gallstones. No evidence of acute cholecystitis. Increased echogenicity of the liver suggestive of fatty infiltration or other diffuse disease. Electronically Signed: Armando Mckeon MD at 22:24 EDT , US/Gallbladder IMPRESSION: undefined
[2022-03-24 22:00] VITALS: BP 132/71; PULSE 91; RESP 16; O2SAT 99
== END 2022-03-25 | disposition home or self-care (01) ==
PROVIDERS: Emergency Provider Emergency Medicine; PCP Family Medicine; Visit Provider Emergency Medicine
DX: K80.20 Calculus of gallbladder without cholecystitis without obstruction (principal); E11.9 Type 2 diabetes mellitus without complications; E78.5 Hyperlipidemia, unspecified; R81 Glycosuria; I10 Essential (primary) hypertension; E66.9 Obesity, unspecified
CPT/HCPCS: 74176; 76705; 80053; 81001; 85025; 96374; 96375; 99285; A4216; J2405